=== PATIENT | male | born 1935 | race Caucasian/White ===

== ENCOUNTER 2018-02-10 20:23 | Inpatient (IN) | payer MEDICARE ==
[2018-02-10] MEDS ORDERED: methylPREDNISolone SOD SUCCI 125 MG/2 ML VIAL IV STA (20:38)
[2018-02-10] MEDS ORDERED: IPRATROPIUM-ALBUTEROL 3 ML NEB INHALATION STA (20:38)
[2018-02-10] MEDS ORDERED: MAGNESIUM SULFATE-D5W PMX 1 GM in DEXTROSE/WATER 1 100ML.BAG IVPB STA (20:38)
--- NOTE | 2018-02-10 20:48 | ED ---
SOB HPI - General Chief Complaint: Shortness of Breath Stated Complaint: FERMIN Time Seen by Provider: 02/10/18 20:30 Source: patient, family, RN notes reviewed Mode of arrival: wheelchair Limitations: no limitations - History of Present Illness Initial Comments: This is a 82-year-old male history of COPD who states he had the onset about 1 PM today shortness of breath which is getting progressively worse he's had exertional dyspnea he does have a slight cough this is normal no production. He denies any fevers chills or sweats. No chest pain or other symptoms. MD Complaint: shortness of breath - Related Data Home Medications Medication Instructions Recorded Confirmed Allopurinol 300 mg PO DAILY 02/08/15 02/10/18 Calcium Carbonate/Vitamin D3 600 mg PO HS 02/08/15 02/10/18 [Calcium 600-Vit D3 400 Tablet] Multivitamin [Men's Multi-Vitamin] 1 tab PO DAILY 02/08/15 02/10/18 Aspirin 325 mg PO HS 12/25/15 02/10/18 Tiotropium 18 Mcg/Puff [Spiriva] 1 puff INHALATION RT-DAILY 12/25/15 02/10/18 Albuterol Nebulized [Ventolin 2.5 mg INHALATION RT-Q6H PRN 02/10/18 02/10/18 Nebulized] Budesonide-Formot 160-4.5 Mcg 2 puff INHALATION RT-BID PRN 02/10/18 02/10/18 [Symbicort 160-4.5 Mcg Inhaler] Carvedilol [Coreg] 6.25 mg PO BID 02/10/18 02/10/18 Colchicine 0.6 mg PO DAILY PRN 02/10/18 02/10/18 FLUoxetine HCL [PROzac] 40 mg PO DAILY 02/10/18 02/10/18 Furosemide [Lasix] 40 mg PO BID 02/10/18 02/10/18 Gabapentin [Neurontin] 100 mg PO HS 02/10/18 02/10/18 Gabapentin [Neurontin] 200 mg PO DAILY 02/10/18 02/10/18 Insulin Detemir [Levemir Flextouch] 40 unit SQ HS 02/10/18 02/10/18 Insulin Lispro [humaLOG Kwikpen] 14 unit SQ AC-TID 02/10/18 02/10/18 Ipratropium Nebulized [Atrovent 0.5 mg INHALATION RT-Q6H PRN 02/10/18 02/10/18 Nebulized] Lisinopril [Zestril] 2.5 mg PO DAILY 02/10/18 02/10/18 Potassium Chloride [Klor-Con 20] 20 meq PO DAILY 02/10/18 02/10/18 Pravastatin Sodium [Pravachol] 20 mg PO HS 02/10/18 02/10/18 metFORMIN HCL 1,000 mg PO DAILY 02/10/18 02/10/18 Allergies Allergy/AdvReac Type Severity Reaction Status Date / Time No Known Allergies Allergy Verified 02/10/18 20:43 Review of Systems ROS Statement: Those systems with pertinent positive or pertinent negative responses have been documented in the HPI. ROS Other: All systems not noted in ROS Statement are negative. 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 History of Any Multi-Drug Resistant Organisms: None Reported Past Surgical History: Orthopedic Surgery Additional Past Surgical History / Comment(s): both shoulders- L shoulder rotator cuff repair and R shoulder arthroscopy, L leg fib/tib fx with pinns and screws, plate to R arm, prostate seed implants x 2, R arm B-cell lymphoma removed , circumcision, EGD and colonoscopy Past Anesthesia/Blood Transfusion Reactions: No Reported Reaction Past Psychological History: No Psychological Hx Reported Smoking Status: Former smoker Past Alcohol Use History: None Reported Past Drug Use History: None Reported - Past Family History Father Family Medical History: Hypertension Mother Family Medical History: Diabetes Mellitus General Exam - General Exam Comments Initial Comments: This is a well-developed well-nourished awake alert oriented times 3 male Limitations: no limitations General appearance: alert, anxious, in distress Head exam: Present: atraumatic, normocephalic, normal inspection Eye exam: Present: normal appearance, PERRL, EOMI. Absent: scleral icterus, conjunctival injection, periorbital swelling ENT exam: Present: normal exam, mucous membranes moist Neck exam: Present: normal inspection. Absent: tenderness, meningismus, lymphadenopathy Respiratory exam: Present: wheezes, accessory muscle use, decreased breath sounds. Absent: respiratory distress, rales, rhonchi, stridor Cardiovascular Exam: Present: normal rhythm, tachycardia, normal heart sounds. Absent: systolic murmur, diastolic murmur, rubs, gallop, clicks GI/Abdominal exam: Present: soft, normal bowel sounds, other (Obese abdomen). Absent: distended, tenderness, guarding, rebound, rigid Extremities exam: Present: normal inspection, full ROM, normal capillary refill. Absent: tenderness, pedal edema, joint swelling, calf tenderness Back exam: Present: normal inspection Neurological exam: Present: alert, oriented X3, CN II-XII intact Psychiatric exam: Present: normal affect, normal mood Skin exam: Present: warm, dry, intact, normal color. Absent: rash Course Vital Signs 02/10/18 02/10/18 02/10/18 20:23 20:35 20:50 Temperature 97.1 F L Pulse Rate 115 H 97 Respiratory 18 32 H 28 H Rate Blood Pressure 108/65 112/85 O2 Sat by Pulse 86 L 94 L Oximetry 02/10/18 02/10/18 02/10/18 20:53 21:05 21:23 Temperature Pulse Rate 103 H 105 H 102 H Respiratory 28 H Rate Blood Pressure 111/75 O2 Sat by Pulse 96 Oximetry 02/10/18 02/10/18 02/10/18 21:27 22:15 22:36 Temperature Pulse Rate 94 94 Respiratory 22 22 18 Rate Blood Pressure 124/80 125/81 O2 Sat by Pulse 94 L 93 L Oximetry 02/10/18 23:20 Temperature Pulse Rate 98 Respiratory 22 Rate Blood Pressure 129/83 O2 Sat by Pulse 93 L Oximetry - Reevaluation(s) Reevaluation #1: 02/10/18 23:33 Age negative some relief after the initial updraft. He has no pain and reported none earlier. Reevaluation #2: 02/10/18 23:44 Repeat EKG shows a rate of 88 DE interval 228 QRS duration 120 daily since QTC of 404/48 for prescription AV block sinus arrhythmia left exodeviation low- voltage right bundle-branch block this is compared to an EKG dated 02/5615 which did not show right bundle-branch. Medical Decision Making - Medical Decision Making I did a long session with the patient and his regarding findings patient does not have any pain whatsoever he does have elevated troponin definite changes - Lab Data Result diagrams: 02/10/18 20:50 02/10/18 20:50 Lab Results 02/10/18 02/10/18 02/10/18 Range/Units 20:50 20:50 20:50 WBC 12.0 H (3.8-10.6) k/uL RBC 4.88 (4.30-5.90) m/uL Hgb 15.8 (13.0-17.5) gm/dL Hct 47.8 (39.0-53.0) % MCV 98.0 (80.0-100.0) fL MCH 32.4 (25.0-35.0) pg MCHC 33.1 (31.0-37.0) g/dL RDW 15.6 H (11.5-15.5) % Plt Count 135 L (150-450) k/uL Neutrophils % 82 % Lymphocytes % 9 % Monocytes % 7 % Eosinophils % 1 % Basophils % 0 % Neutrophils # 9.8 H (1.3-7.7) k/uL Lymphocytes # 1.1 (1.0-4.8) k/uL Monocytes # 0.8 (0-1.0) k/uL Eosinophils # 0.1 (0-0.7) k/uL Basophils # 0.0 (0-0.2) k/uL PT (9.0-12.0) sec INR (<1.2) APTT (22.0-30.0) sec Sodium 137 (137-145) mmol/L Potassium 5.1 (3.5-5.1) mmol/L Chloride 101 (98-107) mmol/L Carbon Dioxide 20 L (22-30) mmol/L Anion Gap 16 mmol/L BUN 46 H (9-20) mg/dL Creatinine 1.36 H (0.66-1.25) mg/dL Est GFR (CKD-EPI)AfAm 56 (>60 ml/min/1.73 sqM) Est GFR (CKD-EPI)NonAf 49 (>60 ml/min/1.73 sqM) Glucose 309 H (74-99) mg/dL Calcium 10.1 (8.4-10.2) mg/dL Magnesium 1.5 L (1.6-2.3) mg/dL Total Bilirubin 0.5 (0.2-1.3) mg/dL AST 43 (17-59) U/L ALT 54 (21-72) U/L Alkaline Phosphatase 94 (38-126) U/L Total Creatine Kinase 288 H (55-170) U/L CK-MB (CK-2) 6.0 H* (0.0-2.4) ng/mL CK-MB (CK-2) Rel Index 2.1 Troponin I 0.736 H* (0.000-0.034) ng/mL NT-Pro-B Natriuret Pep pg/mL Total Protein 7.1 (6.3-8.2) g/dL Albumin 4.1 (3.5-5.0) g/dL 02/10/18 02/10/18 Range/Units 20:50 20:50 WBC (3.8-10.6) k/uL RBC (4.30-5.90) m/uL Hgb (13.0-17.5) gm/dL Hct (39.0-53.0) % MCV (80.0-100.0) fL MCH (25.0-35.0) pg MCHC (31.0-37.0) g/dL RDW (11.5-15.5) % Plt Count (150-450) k/uL Neutrophils % % Lymphocytes % % Monocytes % % Eosinophils % % Basophils % % Neutrophils # (1.3-7.7) k/uL Lymphocytes # (1.0-4.8) k/uL Monocytes # (0-1.0) k/uL Eosinophils # (0-0.7) k/uL Basophils # (0-0.2) k/uL PT 10.8 (9.0-12.0) sec INR 1.1 (<1.2) APTT 23.0 (22.0-30.0) sec Sodium (137-145) mmol/L Potassium (3.5-5.1) mmol/L Chloride (98-107) mmol/L Carbon Dioxide (22-30) mmol/L Anion Gap mmol/L BUN (9-20) mg/dL Creatinine (0.66-1.25) mg/dL Est GFR (CKD-EPI)AfAm (>60 ml/min/1.73 sqM) Est GFR (CKD-EPI)NonAf (>60 ml/min/1.73 sqM) Glucose (74-99) mg/dL Calcium (8.4-10.2) mg/dL Magnesium (1.6-2.3) mg/dL Total Bilirubin (0.2-1.3) mg/dL AST (17-59) U/L ALT (21-72) U/L Alkaline Phosphatase (38-126) U/L Total Creatine Kinase (55-170) U/L CK-MB (CK-2) (0.0-2.4) ng/mL CK-MB (CK-2) Rel Index Troponin I (0.000-0.034) ng/mL NT-Pro-B Natriuret Pep 1110 pg/mL Total Protein (6.3-8.2) g/dL Albumin (3.5-5.0) g/dL - EKG Data -: EKG Interpreted by Mi EKG shows normal: sinus rhythm (Sinus rhythm for 3 AV block rate 95. Interval to 16 QRS duration 114 QT since QTC of 372/467 left exodeviation low-voltage incomplete right bundle-branch block and old inferior changes) - Radiology Data Radiology results: report reviewed (I did review the imaging and reports no definite acute infiltrate seen.), image reviewed Critical Care Time Critical Care Time: Yes Critical Care Time: 32 minutes of critical care time which includes initial presentation with history physical labs x-rays reevaluation patient to responsive therapy and discussed with the patient and his regarding findings. Discussed with the main physician admission orders documentation the above discussed with cardiology. Review of old charting that was available Disposition Clinical Impression: Non-ST elevation myocardial infarction (NSTEMI), Acute exacerbation of chronic obstructive airways disease, Adult respiratory distress syndrome Disposition: ADMITTED IP TO THIS HOSP Condition: Stable Referrals: [facility],Clinic [Primary Care Provider] - 1-2 days
[2018-02-10 21:18] LABS: Basophils % (A) 0 %; Eosinophils # (A) 0.1 k/uL (0-0.7); Eosinophils % (A) 1 %; HCT 47.8 % (39.0-53.0); HGB 15.8 gm/dL (13.0-17.5); Lymphocytes # (A) 1.1 k/uL (1.0-4.8); Lymphocytes % (A) 9 %; MCH 32.4 pg (25.0-35.0); MCHC 33.1 g/dL (31.0-37.0); Mean Platelet Volume 9.4; Monocytes # (A) 0.8 k/uL (0-1.0); Monocytes % (A) 7 %; Neutrophils # (A) 9.8 k/uL (1.3-7.7); Neutrophils % (A) 82 %; Platelet Count 135 k/uL (150-450); RBC 4.88 m/uL (4.30-5.90); RDW 15.6 % (11.5-15.5)
[2018-02-10 21:25] LABS: INR 1.1 (<1.2); Prothrombin Time 10.8 sec (9.0-12.0)
[2018-02-10 21:30] LABS: Albumin 4.1 g/dL (3.5-5.0); Calcium 10.1 mg/dL (8.4-10.2); Magnesium 1.5 mg/dL (1.6-2.3); Potassium 5.1 mmol/L (3.5-5.1); Total Bilirubin 0.5 mg/dL (0.2-1.3); Total Protein 7.1 g/dL (6.3-8.2)
--- NOTE | 2018-02-10 21:52 | XR ---
EXAMINATION TYPE: XR chest 2V DATE OF EXAM: 02/10/2018 COMPARISON: 03/20/2015 HISTORY: Difficulty breathing TECHNIQUE: Frontal and lateral views of the chest are obtained. FINDINGS: There is no heart failure nor confluent pneumonic infiltrate. There are old posterior heal ed rib fractures on the left side. There are chest leads. Costophrenic angles are clear. Thoracic aor ta is atheromatous. IMPRESSION: No active cardiopulmonary disease. Atheromatous aorta. No change.
[2018-02-10 21:57] LABS: Troponin I 0.736 ng/mL (0.000-0.034)
[2018-02-10] MEDS ORDERED: HEPARIN SODIUM,PORCINE 5,000 UNIT/ML 1 ML VIAL IV ONE (23:36)
[2018-02-10] MEDS ORDERED: NITROGLYCERIN SL TABS 0.4 MG TAB SUBLINGUAL PRN (23:36)
[2018-02-10] MEDS ORDERED: COLCHICINE 0.6 MG TAB PO PRN (23:38)
[2018-02-10] MEDS ORDERED: SODIUM CHLORIDE 0.9% 1,000 ML IV SCH (23:45)
[2018-02-11] MEDS: HEPARIN SOD,PORK IN 0.45% NACL 25,000 UNIT in 0.45% NACL 1 500ML.BAG IV SCH ×2 (00:21→10:55)
[2018-02-11 01:07] VITALS: BMI 28.2
[2018-02-11] MEDS: NITROGLYCERIN OINT 1 INCH/GM PACKET TOPICAL SCH ×2 (01:43→06:13)
[2018-02-11 04:11] LABS: Creatine Kinase MB 6.4 ng/mL (0.0-2.4); Troponin I 0.603 ng/mL (0.000-0.034)
[2018-02-11 06:21] LABS: Glucose,Whole Blood 334 mg/dL (75-99)
[2018-02-11 06:34] LABS: Basophils % (A) 0 %; Eosinophils % (A) 0 %; HCT 49.9 % (39.0-53.0); HGB 16.6 gm/dL (13.0-17.5); Lymphocytes # (A) 0.5 k/uL (1.0-4.8); Lymphocytes % (A) 6 %; MCH 33.1 pg (25.0-35.0); MCHC 33.4 g/dL (31.0-37.0); MCV 99.1 fL (80.0-100.0); Macrocytosis Slight; Mean Platelet Volume 8.8; Monocytes # (A) 0.2 k/uL (0-1.0); Monocytes % (A) 2 %; Neutrophils # (A) 7.3 k/uL (1.3-7.7); Neutrophils % (A) 92 %; Platelet Count 108 k/uL (150-450); RBC 5.03 m/uL (4.30-5.90); RDW 15.7 % (11.5-15.5)
[2018-02-11] MEDS ORDERED: FUROSEMIDE 40 MG TAB PO SCH (07:00)
[2018-02-11 07:18] LABS: Magnesium 1.9 mg/dL (1.6-2.3); Potassium 4.9 mmol/L (3.5-5.1)
[2018-02-11] MEDS ORDERED: INSULIN ASPART 100 UNIT/ML 1 ML 10 ML VIAL SQ SCH ×2 (07:30)
[2018-02-11] MEDS ORDERED: CARVEDILOL 6.25 MG TAB PO SCH (07:30)
--- NOTE | 2018-02-11 08:27 | P.CRDCN ---
History of Present Illness Consult date: 02/11/18 Requesting physician: Corky Al Reason for Consult (text): Abnormal troponins Consult reason: shortness of breath Chief complaint: Sudden onset of shortness of breath History of present illness: This is a pleasant 82-year-old gentleman with past medical history significant for hypertension, diabetes, hyperlipidemia, history of prior smoking , patient quit several years ago, prior TIA, emphysema, prior CVA, sleep apnea, he follows with Dr. Wheeler as his processing spec. According to the patient, he has been in his usual state of health, yesterday he states that he was sitting up in a chair and developed a sudden onset of shortness of breath. He denies any chest pressure or discomfort. He came to the hospital for further evaluation. EKG on arrival here shows a normal sinus rhythm with a first- degree AV block and a right bundle branch block pattern and nonspecific ST-T wave changes. Chest x-ray does not reveal any acute changes. Blood pressure 142/80 with a heart rate in the 80s. Temperature 96.3. 92% on 8 L high flow. White blood cell count on admission 12.0, 8.0 this morning. Hemoglobin 16.6, platelet count 108. Sodium 140, potassium 4.9, BUN 48, creatinine 1.3. Blood glucose on arrival 309. Magnesium on arrival 1.5, 1.9 this morning. Troponin 0.7, 0.6. BNP level 1110. Patient was initiated on IV heparin on arrival here. At the time of my examination this morning, patient states his breathing is significantly improved from admission here, still complains of feeling quite short of breath. He also states that recently he had a nuclear stress test performed at his cardiology office. The most recent echocardiogram with Doppler study that we have available was performed in 2014 which revealed an ejection fraction of 45-50%. 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 History of Any Multi-Drug Resistant Organisms: None Reported Past Surgical History: Orthopedic Surgery Additional Past Surgical History / Comment(s): both shoulders- L shoulder rotator cuff repair and R shoulder arthroscopy, L leg fib/tib fx with pinns and screws, plate to R arm, prostate seed implants x 2, R arm B-cell lymphoma removed , circumcision, EGD and colonoscopy Past Anesthesia/Blood Transfusion Reactions: No Reported Reaction Past Psychological History: No Psychological Hx Reported Additional Psychological History / Comment(s): Pt lives at home with his and son. Pt ambulates with a walker and also uses a w/c. Pt has hospital bed. Pt states he has a CPAP for his sleep apnea but does not wear it. Pt no longer drives. Pt has home care - [facility] , who comes in and helps pt with ADLs and also does some housework. Smoking Status: Former smoker Past Alcohol Use History: None Reported Past Drug Use History: None Reported - Past Family History Father Family Medical History: Hypertension Mother Family Medical History: Diabetes Mellitus Medications and Allergies Home Medications Medication Instructions Recorded Confirmed Type Allopurinol 300 mg PO DAILY 02/08/15 02/10/18 History Calcium Carbonate/Vitamin D3 600 mg PO HS 02/08/15 02/10/18 History [Calcium 600-Vit D3 400 Tablet] Multivitamin [Men's Multi-Vitamin] 1 tab PO DAILY 02/08/15 02/10/18 History Aspirin 325 mg PO HS 12/25/15 02/10/18 History Tiotropium 18 Mcg/Puff [Spiriva] 1 puff INHALATION RT-DAILY 12/25/15 02/10/18 History Albuterol Nebulized [Ventolin 2.5 mg INHALATION RT-Q6H PRN 02/10/18 02/10/18 History Nebulized] Budesonide-Formot 160-4.5 Mcg 2 puff INHALATION RT-BID PRN 02/10/18 02/10/18 History [Symbicort 160-4.5 Mcg Inhaler] Carvedilol [Coreg] 6.25 mg PO BID 02/10/18 02/10/18 History Colchicine 0.6 mg PO DAILY PRN 02/10/18 02/10/18 History FLUoxetine HCL [PROzac] 40 mg PO DAILY 02/10/18 02/10/18 History Furosemide [Lasix] 40 mg PO BID 02/10/18 02/10/18 History Gabapentin [Neurontin] 100 mg PO HS 02/10/18 02/10/18 History Gabapentin [Neurontin] 200 mg PO DAILY 02/10/18 02/10/18 History Insulin Detemir [Levemir Flextouch] 40 unit SQ HS 02/10/18 02/10/18 History Insulin Lispro [humaLOG Kwikpen] 14 unit SQ AC-TID 02/10/18 02/10/18 History Ipratropium Nebulized [Atrovent 0.5 mg INHALATION RT-Q6H PRN 02/10/18 02/10/18 History Nebulized] Lisinopril [Zestril] 2.5 mg PO DAILY 02/10/18 02/10/18 History Potassium Chloride [Klor-Con 20] 20 meq PO DAILY 02/10/18 02/10/18 History Pravastatin Sodium [Pravachol] 20 mg PO HS 02/10/18 02/10/18 History metFORMIN HCL 1,000 mg PO DAILY 02/10/18 02/10/18 History Allergies Allergy/AdvReac Type Severity Reaction Status Date / Time No Known Allergies Allergy Verified 02/10/18 20:43 Physical Exam Vitals: Vital Signs Temp Pulse Pulse Resp BP BP Pulse Ox 02/11/18 06:29 82 24 142/85 92 L 02/11/18 03:18 24 93 L 02/11/18 03:05 96.3 F L 85 24 139/81 95 02/11/18 01:00 86 26 H 02/11/18 00:55 96.9 F L 86 26 H 124/74 95 02/11/18 00:23 96.7 F L 82 24 140/86 94 L 02/10/18 23:20 98 22 129/83 93 L 02/10/18 22:36 94 18 125/81 93 L 02/10/18 22:15 94 22 124/80 94 L 02/10/18 21:27 22 02/10/18 21:23 102 H 28 H 111/75 96 02/10/18 21:05 105 H 02/10/18 20:53 103 H 02/10/18 20:50 97 28 H 112/85 94 L 02/10/18 20:35 32 H 02/10/18 20:23 97.1 F L 115 H 18 108/65 86 L Intake and Output 02/10/18 02/11/18 02/11/18 22:59 06:59 14:59 Intake Total 187.333 Output Total 150 Balance 37.333 Intake: Intake, IV Titration 187.333 Amount Heparin Sod,Pork in 0.45% 127.333 NaCl 25,000 unit In 0.45 % NaCl 1 500ml.bag @ 7. 885 UNITS/KG/HR 20.02 mls /hr IV .Q24H [facility] Rx#: [id number] Sodium Chloride 0.9% 1, 60 000 ml @ 20 mls/hr IV . Q24H [facility] Rx#:[id number] Oral 0 Output: Urine 150 Other: Voiding Method Urinal Weight 127.006 kg 94.5 kg PHYSICAL EXAMINATION: HEENT: Head is atraumatic, normocephalic. Pupils equal, round. Neck is supple. There is no elevated jugular venous pressure. HEART EXAMINATION: Heart S1, S2 normal. No murmur or gallop heard. CHEST EXAMINATION: Lungs reveal decreased air exchange throughout. ABDOMEN: Soft, obese, nontender. Bowel sounds are heard. No organomegaly noted. EXTREMITIES: 2+ peripheral pulses with trace evidence of peripheral edema and no calf tenderness noted. NEUROLOGIC patient is awake, alert and oriented -3. . Results 02/11/18 06:11 02/11/18 06:11 Cardiac Enzymes 02/10/18 02/10/18 02/11/18 Range/Units 20:50 20:50 03:06 AST 43 (17-59) U/L CK-MB (CK-2) 6.0 H* 6.4 H* (0.0-2.4) ng/mL Troponin I 0.736 H* 0.603 H* (0.000-0.034) ng/mL Coagulation 02/10/18 02/11/18 Range/Units 20:50 06:11 PT 10.8 (9.0-12.0) sec APTT 23.0 37.0 H (22.0-30.0) sec Lipids 02/11/18 Range/Units 06:11 Triglycerides 160 H (<150) mg/dL Cholesterol 162 (<200) mg/dL HDL Cholesterol 41 (40-60) mg/dL CBC 02/10/18 02/11/18 Range/Units 20:50 06:11 WBC 12.0 H 8.0 (3.8-10.6) k/uL RBC 4.88 5.03 (4.30-5.90) m/uL Hgb 15.8 16.6 (13.0-17.5) gm/dL Hct 47.8 49.9 (39.0-53.0) % Plt Count 135 L 108 L (150-450) k/uL Comprehensive Metabolic Panel 02/10/18 02/11/18 Range/Units 20:50 06:11 Sodium 137 140 (137-145) mmol/L Potassium 5.1 4.9 (3.5-5.1) mmol/L Chloride 101 102 (98-107) mmol/L Carbon Dioxide 20 L 20 L (22-30) mmol/L BUN 46 H 48 H (9-20) mg/dL Creatinine 1.36 H 1.30 H (0.66-1.25) mg/dL Glucose 309 H 362 H (74-99) mg/dL Calcium 10.1 10.0 (8.4-10.2) mg/dL AST 43 (17-59) U/L ALT 54 (21-72) U/L Alkaline Phosphatase 94 (38-126) U/L Total Protein 7.1 (6.3-8.2) g/dL Albumin 4.1 (3.5-5.0) g/dL Current Medications Generic Name Dose Route Start Last Admin Trade Name Freq PRN Reason Stop Dose Admin Allopurinol 300 mg 02/11/18 09:00 Zyloprim PO DAILY [facility] Aspirin 325 mg 02/11/18 09:00 Aspirin PO DAILY [facility] Calcium Carbonate 2 each 02/11/18 21:00 Oscal 500+D PO HS [facility] Carvedilol 6.25 mg 02/11/18 07:30 02/11/18 06:30 Coreg PO 6.25 mg BID-W/MEALS [facility] Administration Colchicine 0.6 mg 02/10/18 23:38 Colcrys PO DAILY PRN GOUT Fluoxetine HCl 40 mg 02/11/18 09:00 Prozac PO DAILY [facility] Furosemide 40 mg 02/11/18 07:00 02/11/18 06:30 Lasix PO 40 mg BID@0700,1700 [facility] Administration Gabapentin 200 mg 02/11/18 09:00 Neurontin PO DAILY [facility] Gabapentin 100 mg 02/11/18 21:00 Neurontin PO HS [facility] Heparin Sodium/Sodium Chloride 500 mls @ 20.02 mls/hr 02/10/18 23:45 06:43 25,000 unit/ Sodium Chloride IV 10.87 units/kg/hr .Q24H [facility] 27.61 mls/hr Protocol Titration 7.885 UNITS/KG/HR Sodium Chloride 1,000 mls @ 20 mls/hr 02/10/18 23:45 02/11/18 01:18 Saline 0.9% IV 20 mls/hr .Q24H [facility] Administration Insulin Aspart 14 unit 02/11/18 07:30 02/11/18 06:16 Novolog SQ Not Given AC-TID [facility] Insulin Aspart 0 unit 02/11/18 07:30 02/11/18 06:31 Novolog SQ 9 unit ACHS [facility] Administration Protocol Insulin Detemir 40 unit 02/11/18 21:00 Levemir SQ HS [facility] Lisinopril 2.5 mg 02/11/18 09:00 Zestril PO DAILY [facility] Metformin HCl 1,000 mg 02/11/18 09:00 Glucophage PO DAILY [facility] Multivitamins 1 each 02/11/18 12:00 Theragran PO DAILY@1200 [facility] Nitroglycerin 1 inch 02/11/18 00:00 02/11/18 06:13 Nitro-Bid Oint TOPICAL Not Given Q6HR [facility] Nitroglycerin 0.4 mg 02/10/18 23:36 Nitrostat SUBLINGUAL Q5M PRN Chest Pain Potassium Chloride 20 meq 02/11/18 09:00 K-Dur 20 PO DAILY [facility] Pravastatin Sodium 20 mg 02/11/18 21:00 Pravachol PO HS [facility] Intake and Output 02/10/18 02/11/18 02/11/18 22:59 06:59 14:59 Intake Total 187.333 Output Total 150 Balance 37.333 Intake: Intake, IV Titration 187.333 Amount Heparin Sod,Pork in 0.45% 127.333 NaCl 25,000 unit In 0.45 % NaCl 1 500ml.bag @ 7. 885 UNITS/KG/HR 20.02 mls /hr IV .Q24H [facility] Rx#: [id number] Sodium Chloride 0.9% 1, 60 000 ml @ 20 mls/hr IV . Q24H [facility] Rx#:[id number] Oral 0 Output: Urine 150 Other: Voiding Method Urinal Weight 127.006 kg 94.5 kg 02/11/18 06:11 02/11/18 06:11 EKG Interpretations (text) EKG shows a normal sinus rhythm with a first-degree AV block, right bundle branch block pattern and nonspecific ST-T wave changes. Assessment and Plan Plan: Assessment and plan #1 symptoms of sudden onset of shortness of breath, troponins 0.7, 0.6. Possible non-Q-wave myocardial infarction, rule out pulmonary embolism. EKG shows a normal sinus rhythm with first-degree AV block, right bundle branch block pattern and non-specific ST-T wave changes. Patient is on IV heparin #2 hypertension #3 hyperlipidemia #4 diabetes #5 COPD #6 prior CVA #7 sleep apnea #8 mild renal insufficiency, creatinine 1.3 Plan We will obtain a d-dimer as well as an echocardiogram with Doppler study. Continue IV heparin at this time. We will obtain most recent stress test performed at his cardiology office. Pending the results of the d-dimer, we will proceed with either CT of the chest or VQ scan. Patient may also require cardiac catheterization if he is ruled out for PE. Further recommendations will be based on these findings and the patient's clinical course. DNP note has been reviewed, I agree with a documented findings and plan of care. Patient was seen and examined.
[2018-02-11] MEDS ORDERED: ASPIRIN 325 MG TAB PO SCH ×2 (09:00→21:00)
[2018-02-11] MEDS ORDERED: ALLOPURINOL 300 MG TAB PO SCH (09:00)
[2018-02-11] MEDS ORDERED: GABAPENTIN 100 MG CAP PO SCH ×2 (09:00→21:00)
[2018-02-11] MEDS ORDERED: metFORMIN 500 MG TAB PO SCH (09:00)
[2018-02-11] MEDS ORDERED: POTASSIUM CHLORIDE ER 20 MEQ TAB.ER PO SCH (09:00)
[2018-02-11] MEDS ORDERED: FLUoxetine HCL 20 MG CAP PO SCH (09:00)
[2018-02-11] MEDS ORDERED: LISINOPRIL 2.5 MG TAB PO SCH (09:00)
[2018-02-11] MEDS ORDERED: RX INFO: IV CONTRAST WAS GIVEN 1 EACH MISC MISCELLANE PRN (09:14)
[2018-02-11 09:41] VITALS: PULSE 91; RESP 20
[2018-02-11 09:52] LABS: Creatine Kinase MB 6.5 ng/mL (0.0-2.4); Troponin I 0.485 ng/mL (0.000-0.034)
--- NOTE | 2018-02-11 10:49 | CT ---
EXAMINATION TYPE: CT chest angio for PE DATE OF EXAM: 02/11/2018 COMPARISON: Chest radiograph 02/10/2018 HISTORY: 82 year-old male shortness of breath, Elevated d-dimer TECHNIQUE: Contiguous axial scanning of the chest performed with IV Contrast, patient injected with 7 6 mL of Visipaque 320. Coronal/sagittal MIP reconstructions performed. CT DLP: 605.10 mGycm Automated exposure control for dose reduction was used. FINDINGS: Heart is upper limits of normal in size. Prominent epicardial fat pads. No pericardial effusion. Exte nsive coronary vessel calcifications are present in remarkable for coronary artery disease. Ectatic ascending aorta 3.7 cm. There is conventional arterial vessel branching anatomy. Satisfactory opacification of the pulmonary arterial system. Respiratory motion artifacts. There is a small saddle embolism and severe burden of pulmonary emboli throughout the right lung beginning at t he mid main right pulmonary artery. Embolic material appears occlusive to near occlusive. There may be segmental branch embolus to the left upper lobe. Mild diffuse interstitial prominence with peribronchial cuffing. Some patchy groundglass in the upper lungs and dependently within the remainder of the lungs. No pleural effusion or miranda consolidation. There is flattening of the interventricular septum and mild reflux into the IVC. Small hiatal hernia. Hypodense lesions in the kidneys inadequately characterized on this phase of elvia ging measuring up to 2.5 cm, underlying cortical cysts are suspected. Splenic granulomas. Bones: Post surgical changes at the right humeral head. Endplate spondylosis mid to lower thoracic sp ine. IMPRESSION: 1. EXAM POSITIVE FOR PULMONARY EMBOLI. THERE IS SEVERE BURDEN PARTICULARLY ON THE RIGHT ALONG WITH A SMALL SADDLE EMBOLUS. THE EMBOLIC MATERIAL ON THE RIGHT IS OCCLUSIVE TO NEARLY OCCLUSIVE. 2. FINDINGS SUGGEST EARLY RIGHT HEART STRAIN. 3. MILD BRONCHIAL WALL THICKENING CAN BE SEEN WITH BRONCHITIS OR ASTHMA. HAZY DENSITIES THROUGHOUT TH E LUNGS PROBABLY REPRESENT GENERALIZED AREAS OF ATELECTASIS. FOLLOW-UP INDICATED. Critical findings called to nurse Mendez on 6SEL at 10:45am.
--- NOTE | 2018-02-11 11:09 | P.PN ---
Progress Note - Text Progress Note Date: 02/11/18 This is an addendum to the cardiology consultation dictated. A stat d-dimer was obtained which came back to be 17.05. Subsequent to that we requested a CTA of the chest be performed. CTA of the chest was positive for pulmonary emboli. Severe burden particularly on the right along with saddle embolus. The embolic material on the right is occlusive to nearly occlusive. Findings suggest early right heart strain. Echo remains pending. Patient remained slightly tachycardic, 91% on 8 L high flow, blood pressure remaining stable at 124/82. This data along with the abnormal troponin and abnormal BNP suggests of massive PE. We've recommended to the patient that he be transferred to [facility] for possible thrombectomy. We will get a hold of Dr. Alvarenga be transferred as soon as possible. In the meantime, heparin has been increased to high intensity , we will request a bilateral venous duplex study. DNP note has been reviewed, I agree with a documented findings and plan of care. Patient was seen and examined.
--- NOTE | 2018-02-11 11:14 | P.CRDCN ---
History of Present Illness History of present illness: Patient presenting with sudden onset of shortness of breath. Short of breath at rest. Recent stress test at his primary disk recordist office Cardiac enzymes abnormal the downward trend. D-dimer was sent this morning lasts and it is 17.05. A computed tomography scan was ordered Pulmonary embolism small saddle embolus embolic material almost occlusive in the right lung, RV strain Enlarged right ventricle on 2-D echo, preliminary report In view of this finding I would suggest either thrombectomy or thrombolytic therapy and transfer to tertiary care institution Discussed with nurse practitioner. 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 History of Any Multi-Drug Resistant Organisms: None Reported Past Surgical History: Orthopedic Surgery Additional Past Surgical History / Comment(s): both shoulders- L shoulder rotator cuff repair and R shoulder arthroscopy, L leg fib/tib fx with pinns and screws, plate to R arm, prostate seed implants x 2, R arm B-cell lymphoma removed , circumcision, EGD and colonoscopy Past Anesthesia/Blood Transfusion Reactions: No Reported Reaction Past Psychological History: No Psychological Hx Reported Additional Psychological History / Comment(s): Pt lives at home with his and son. Pt ambulates with a walker and also uses a w/c. Pt has hospital bed. Pt states he has a CPAP for his sleep apnea but does not wear it. Pt no longer drives. Pt has home care - [facility], who comes in and helps pt with ADLs and also does some housework. Smoking Status: Former smoker Past Alcohol Use History: None Reported Past Drug Use History: None Reported - Past Family History Father Family Medical History: Hypertension Mother Family Medical History: Diabetes Mellitus Medications and Allergies Home Medications Medication Instructions Recorded Confirmed Type Allopurinol 300 mg PO DAILY 02/08/15 02/10/18 History Calcium Carbonate/Vitamin D3 600 mg PO HS 02/08/15 02/10/18 History [Calcium 600-Vit D3 400 Tablet] Multivitamin [Men's Multi-Vitamin] 1 tab PO DAILY 02/08/15 02/10/18 History Aspirin 325 mg PO HS 12/25/15 02/10/18 History Tiotropium 18 Mcg/Puff [Spiriva] 1 puff INHALATION RT-DAILY 12/25/15 02/10/18 History Albuterol Nebulized [Ventolin 2.5 mg INHALATION RT-Q6H PRN 02/10/18 02/10/18 History Nebulized] Budesonide-Formot 160-4.5 Mcg 2 puff INHALATION RT-BID PRN 02/10/18 02/10/18 History [Symbicort 160-4.5 Mcg Inhaler] Carvedilol [Coreg] 6.25 mg PO BID 02/10/18 02/10/18 History Colchicine 0.6 mg PO DAILY PRN 02/10/18 02/10/18 History FLUoxetine HCL [PROzac] 40 mg PO DAILY 02/10/18 02/10/18 History Furosemide [Lasix] 40 mg PO BID 02/10/18 02/10/18 History Gabapentin [Neurontin] 100 mg PO HS 02/10/18 02/10/18 History Gabapentin [Neurontin] 200 mg PO DAILY 02/10/18 02/10/18 History Insulin Detemir [Levemir Flextouch] 40 unit SQ HS 02/10/18 02/10/18 History Insulin Lispro [humaLOG Kwikpen] 14 unit SQ AC-TID 02/10/18 02/10/18 History Ipratropium Nebulized [Atrovent 0.5 mg INHALATION RT-Q6H PRN 02/10/18 02/10/18 History Nebulized] Lisinopril [Zestril] 2.5 mg PO DAILY 02/10/18 02/10/18 History Potassium Chloride [Klor-Con 20] 20 meq PO DAILY 02/10/18 02/10/18 History Pravastatin Sodium [Pravachol] 20 mg PO HS 02/10/18 02/10/18 History metFORMIN HCL 1,000 mg PO DAILY 02/10/18 02/10/18 History Allergies Allergy/AdvReac Type Severity Reaction Status Date / Time No Known Allergies Allergy Verified 02/10/18 20:43 Physical Exam Vitals: Vital Signs Temp Pulse Pulse Resp BP BP Pulse Ox 02/11/18 08:00 96.9 F L 91 20 124/82 91 L 02/11/18 06:29 82 24 142/85 92 L 02/11/18 03:18 24 93 L 02/11/18 03:05 96.3 F L 85 24 139/81 95 02/11/18 01:00 86 26 H 02/11/18 00:55 96.9 F L 86 26 H 124/74 95 02/11/18 00:23 96.7 F L 82 24 140/86 94 L 02/10/18 23:20 98 22 129/83 93 L 02/10/18 22:36 94 18 125/81 93 L 02/10/18 22:15 94 22 124/80 94 L 02/10/18 21:27 22 02/10/18 21:23 102 H 28 H 111/75 96 02/10/18 21:05 105 H 02/10/18 20:53 103 H 02/10/18 20:50 97 28 H 112/85 94 L 02/10/18 20:35 32 H 02/10/18 20:23 97.1 F L 115 H 18 108/65 86 L Intake and Output 02/10/18 02/11/18 02/11/18 22:59 06:59 14:59 Intake Total 187.333 115.962 Output Total 150 Balance 37.333 115.962 Intake: Intake, IV Titration 187.333 115.962 Amount Heparin Sod,Pork in 0.45% 127.333 115.962 NaCl 25,000 unit In 0.45 % NaCl 1 500ml.bag @ 7. 885 UNITS/KG/HR 20.02 mls /hr IV .Q24H [facility] Rx#: [id number] Sodium Chloride 0.9% 1, 60 000 ml @ 20 mls/hr IV . Q24H [facility] Rx#:[id number] Oral 0 Output: Urine 150 Other: Voiding Method Urinal Urinal Weight 127.006 kg 94.5 kg Results 02/11/18 06:11 02/11/18 06:11 Cardiac Enzymes 02/10/18 02/10/18 02/11/18 Range/Units 20:50 20:50 03:06 AST 43 (17-59) U/L CK-MB (CK-2) 6.0 H* 6.4 H* (0.0-2.4) ng/mL Troponin I 0.736 H* 0.603 H* (0.000-0.034) ng/mL 02/11/18 Range/Units 08:30 AST (17-59) U/L CK-MB (CK-2) 6.5 H* (0.0-2.4) ng/mL Troponin I 0.485 H* (0.000-0.034) ng/mL Coagulation 02/10/18 02/11/18 Range/Units 20:50 06:11 PT 10.8 (9.0-12.0) sec APTT 23.0 37.0 H (22.0-30.0) sec Lipids 02/11/18 Range/Units 06:11 Triglycerides 160 H (<150) mg/dL Cholesterol 162 (<200) mg/dL HDL Cholesterol 41 (40-60) mg/dL CBC 02/10/18 02/11/18 Range/Units 20:50 06:11 WBC 12.0 H 8.0 (3.8-10.6) k/uL RBC 4.88 5.03 (4.30-5.90) m/uL Hgb 15.8 16.6 (13.0-17.5) gm/dL Hct 47.8 49.9 (39.0-53.0) % Plt Count 135 L 108 L (150-450) k/uL Comprehensive Metabolic Panel 02/10/18 02/11/18 Range/Units 20:50 06:11 Sodium 137 140 (137-145) mmol/L Potassium 5.1 4.9 (3.5-5.1) mmol/L Chloride 101 102 (98-107) mmol/L Carbon Dioxide 20 L 20 L (22-30) mmol/L BUN 46 H 48 H (9-20) mg/dL Creatinine 1.36 H 1.30 H (0.66-1.25) mg/dL Glucose 309 H 362 H (74-99) mg/dL Calcium 10.1 10.0 (8.4-10.2) mg/dL AST 43 (17-59) U/L ALT 54 (21-72) U/L Alkaline Phosphatase 94 (38-126) U/L Total Protein 7.1 (6.3-8.2) g/dL Albumin 4.1 (3.5-5.0) g/dL Current Medications Generic Name Dose Route Start Last Admin Trade Name Freq PRN Reason Stop Dose Admin Allopurinol 300 mg 02/11/18 09:00 Zyloprim PO DAILY [facility] Aspirin 325 mg 02/11/18 09:00 Aspirin PO DAILY [facility] Calcium Carbonate 2 each 02/11/18 21:00 Oscal 500+D PO HS [facility] Carvedilol 6.25 mg 02/11/18 07:30 02/11/18 06:30 Coreg PO 6.25 mg BID-W/MEALS [facility] Administration Colchicine 0.6 mg 02/10/18 23:38 Colcrys PO DAILY PRN GOUT Fluoxetine HCl 40 mg 02/11/18 09:00 Prozac PO DAILY [facility] Furosemide 40 mg 02/11/18 07:00 02/11/18 06:30 Lasix PO 40 mg BID@0700,1700 [facility] Administration Gabapentin 200 mg 02/11/18 09:00 Neurontin PO DAILY [facility] Gabapentin 100 mg 02/11/18 21:00 Neurontin PO HS [facility] Heparin Sodium/Sodium Chloride 500 mls @ 20.02 mls/hr 02/10/18 23:45 10:55 25,000 unit/ Sodium Chloride IV 18 units/kg/hr .Q24H [facility] 45.72 mls/hr Protocol Administration 7.885 UNITS/KG/HR Sodium Chloride 1,000 mls @ 20 mls/hr 02/10/18 23:45 02/11/18 01:18 Saline 0.9% IV 20 mls/hr .Q24H [facility] Administration Insulin Aspart 14 unit 02/11/18 07:30 02/11/18 06:16 Novolog SQ Not Given AC-TID [facility] Insulin Aspart 0 unit 02/11/18 07:30 02/11/18 06:31 Novolog SQ 9 unit ACHS [facility] Administration Protocol Insulin Detemir 40 unit 02/11/18 21:00 Levemir SQ HS [facility] Lisinopril 2.5 mg 02/11/18 09:00 Zestril PO DAILY [facility] Metformin HCl 1,000 mg 02/11/18 09:00 Glucophage PO DAILY [facility] Miscellaneous Information 1 each 02/11/18 09:14 Rx Info: Iv Contrast Was Given MISCELLANE 02/13/18 09:15 DAILY PRN Per Protocol Multivitamins 1 each 02/11/18 12:00 Theragran PO DAILY@1200 [facility] Nitroglycerin 1 inch 02/11/18 00:00 02/11/18 06:13 Nitro-Bid Oint TOPICAL Not Given Q6HR [facility] Nitroglycerin 0.4 mg 02/10/18 23:36 Nitrostat SUBLINGUAL Q5M PRN Chest Pain Potassium Chloride 20 meq 02/11/18 09:00 K-Dur 20 PO DAILY [facility] Pravastatin Sodium 20 mg 02/11/18 21:00 Pravachol PO HS [facility] Intake and Output 02/10/18 02/11/18 02/11/18 22:59 06:59 14:59 Intake Total 187.333 115.962 Output Total 150 Balance 37.333 115.962 Intake: Intake, IV Titration 187.333 115.962 Amount Heparin Sod,Pork in 0.45% 127.333 115.962 NaCl 25,000 unit In 0.45 % NaCl 1 500ml.bag @ 7. 885 UNITS/KG/HR 20.02 mls /hr IV .Q24H [facility] Rx#: [id number] Sodium Chloride 0.9% 1, 60 000 ml @ 20 mls/hr IV . Q24H [facility] Rx#:[id number] Oral 0 Output: Urine 150 Other: Voiding Method Urinal Urinal Weight 127.006 kg 94.5 kg 02/11/18 06:11 02/11/18 06:11
[2018-02-11 11:42] LABS: Glucose,Whole Blood 317 mg/dL (75-99)
[2018-02-11] MEDS ORDERED: MULTIVITAMINS, THERA 1 EACH TAB PO SCH (12:00)
--- NOTE | 2018-02-11 12:28 | ECHOF ---
Referral Reason:sob MEASUREMENTS -------- HEIGHT: 180.3 cm WEIGHT: 94.3 kg BP: 142/85 RVIDd: 5.1 cm (< 3.3) IVSd: 1.1 cm (0.6 - 1.1) LVIDd: 2.8 cm (3.9 - 5.3) LVPWd: 1.3 cm (0.6 - 1.1) IVSs: 1.8 cm LVIDs: 2.0 cm LVPWs: 2.2 cm Ao Diam: 3.7 cm (2.0 - 3.7) AV Cusp: 1.5 cm (1.5 - 2.6) LA Diam: 2.0 cm (2.7 - 3.8) MV EXCURSION: 10.325 mm (> 18.000) MV EF SLOPE: 67 mm/s (70 - 150) EPSS: 1.6 cm MV E Stefano: 1.17 m/s MV DecT: 132 ms MV A Stefano: 0.24 m/s MV E/A Ratio: 4.97 RAP: 5.00 mmHg RVSP: 8.03 mmHg FINDINGS -------- Sinus rhythm. This was a technically difficult study with suboptimal views. The left ventricular size is normal. There is mild concentric left ventricular hypertrophy. Overa ll left ventricular systolic function is normal with, an EF between 55 - 60 %. There is paradoxical /dysynergic septal motion consistent with right ventricular volume overload and/or elevated right tano tricular end-diastolic pressure. The right ventricle is severely enlarged. The left atrium is normal in size. RA appears enlarged. 1.5mg of Definity was utilized for enhancement of images The aortic valve is trileaflet, and appears structurally normal. No aortic stenosis or regurgitation. The mitral valve leaflets are mildly thickened. Mild mitral regurgitation is present. Mild tricuspid regurgitation present. The right ventricular systolic pressure, as measured by Doppl er, is 8.03mmHg.This may be underestimated. Pulmonary artery pressures were low. It could be second brenda to low flow or underestimation. Trace/mild (physiologic) pulmonic regurgitation. The aortic root size is normal. The pericardium is normal. CONCLUSIONS -------- 1. Sinus rhythm. 2. This was a technically difficult study with suboptimal views. 3. The left ventricular size is normal. 4. There is mild concentric left ventricular hypertrophy. 5. Overall left ventricular systolic function is normal with, an EF between 55 - 60 %. 6. There is paradoxical/dysynergic septal motion consistent with right ventricular volume overload an d/or elevated right ventricular end-diastolic pressure. 7. The right ventricle is severely enlarged. 8. The left atrium is normal in size. 9. RA appears enlarged. 10. Lumason used 11. The aortic valve is trileaflet, and appears structurally normal. No aortic stenosis or regurgitat ion. 12. The mitral valve leaflets are mildly thickened. 13. Mild mitral regurgitation is present. 14. Mild tricuspid regurgitation present. 15. The right ventricular systolic pressure, as measured by Doppler, is 8.03mmHg. 16. Pulmonary artery pressures were low. It could be secondary to low flow or underestimation. 17. The aortic root size is normal. 18. The pericardium is normal. LABOR RELATIONS WORKER: Shannan Mullins RDCS
[2018-02-11 13:17] VITALS: BP 121/79; TEMP 97
--- NOTE | 2018-02-11 13:30 | US ---
EXAMINATION TYPE: US venous doppler duplex LE DATE OF EXAM: 02/11/2018 11:03 AM COMPARISON: NONE CLINICAL HISTORY: r/o dvt. PE. On heparin. Hx of DVT in right leg. SIDE PERFORMED: Bilateral TECHNIQUE: The lower extremity deep venous system is examined utilizing real time linear array sonog berto with graded compression, doppler sonography and color-flow sonography. VESSELS IMAGED: External Iliac Vein (EIV) Common Femoral Vein Deep Femoral Vein Greater Saphenous Vein * Femoral Vein Popliteal Vein Small Saphenous Vein * Proximal Calf Veins (* superficial vessels) Right Leg: Negative for DVT Left Leg: Positive for DVT. Partial compression and thready flow seen CFV to Popliteal vein. IMPRESSION: 1. Partial thrombus within the common femoral vein extending into the popliteal vein compatible with deep venous thrombosis left side. 2. Deep venous thrombosis is not identified within the right leg at this time.
--- NOTE | 2018-02-11 19:49 | P.HPIM ---
History of Present Illness H&P Date: 02/11/18 Chief Complaint: Shortness of breath Patient is an 82-year-old male with a known history of ypertension, diabetes, hyperlipidemia, history of prior smoking, patient quit several years ago, prior TIA, emphysema, prior CVA, sleep apnea came to ER with complaints of sudden onset of shortness of breath. Apparently patient was sitting up in the chair and suddenly developed shortness of breath. And also chest discomfort and pressure-like sensation mainly in left upper chest. Patient denied any nausea vomiting or abdominal pain. Denied any recent illnesses or sick contacts. No recent travel. No fever no chills. No cough or sputum production. EKG on admission showed normal sinus rhythm with first-degree AV block and right bundle branch pattern. Chest x-ray showed no acute process. BNP 1110 Patient was started on heparin IV and cardiology was consulted. Patient was complaining of shortness of breath this morning and stat d-dimer was obtained which was found to be 17.05. CT angiogram the chest positive for pulmonary embolus. Severe burden particularly on the right along with saddle embolus. The embolic material on the right is occlusive to nearly occlusive. Findings suggest early right heart strain. Patient was continued on heparin IV and transferred to tertiary care facility was initiated for thrombectomy or thrombolytic therapy Review of Systems Constitutional: Patient denies any fever or chills . No generalized weakness or weight loss. Abdomen: Patient denied nausea vomiting and diarrhea and abdominal pain. Cardiovascular: Chest tightness and shortness of breath. No leg swelling. Respiratory: patient denied any cough is from production. No shortness of breath Neurologic: Patient denied any numbness or tingling headache. Musculoskeletal: Patient denies any complaints of joint swelling or deformity. Skin: Negative Psychiatric: Negative Endocrine: No heat or cold intolerance. No recent weight gain. Genitourinary: No dysuria or hematuria. 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 History of Any Multi-Drug Resistant Organisms: None Reported Past Surgical History: Orthopedic Surgery Additional Past Surgical History / Comment(s): both shoulders- L shoulder rotator cuff repair and R shoulder arthroscopy, L leg fib/tib fx with pinns and screws, plate to R arm, prostate seed implants x 2, R arm B-cell lymphoma removed , circumcision, EGD and colonoscopy Past Anesthesia/Blood Transfusion Reactions: No Reported Reaction Past Psychological History: No Psychological Hx Reported Additional Psychological History / Comment(s): Pt lives at home with his and son. Pt ambulates with a walker and also uses a w/c. Pt has hospital bed. Pt states he has a CPAP for his sleep apnea but does not wear it. Pt no longer drives. Pt has home care - [place] [id number], who comes in and helps pt with ADLs and also does some housework. Smoking Status: Former smoker Past Alcohol Use History: None Reported Past Drug Use History: None Reported - Past Family History Father Family Medical History: Hypertension Mother Family Medical History: Diabetes Mellitus Medications and Allergies Home Medications Medication Instructions Recorded Confirmed Type Allopurinol 300 mg PO DAILY 02/08/15 02/10/18 History Calcium Carbonate/Vitamin D3 600 mg PO HS 02/08/15 02/10/18 History [Calcium 600-Vit D3 400 Tablet] Multivitamin [Men's Multi-Vitamin] 1 tab PO DAILY 02/08/15 02/10/18 History Aspirin 325 mg PO HS 12/25/15 02/10/18 History Tiotropium 18 Mcg/Puff [Spiriva] 1 puff INHALATION RT-DAILY 12/25/15 02/10/18 History Albuterol Nebulized [Ventolin 2.5 mg INHALATION RT-Q6H PRN 02/10/18 02/10/18 History Nebulized] Budesonide-Formot 160-4.5 Mcg 2 puff INHALATION RT-BID PRN 02/10/18 02/10/18 History [Symbicort 160-4.5 Mcg Inhaler] Carvedilol [Coreg] 6.25 mg PO BID 02/10/18 02/10/18 History Colchicine 0.6 mg PO DAILY PRN 02/10/18 02/10/18 History FLUoxetine HCL [PROzac] 40 mg PO DAILY 02/10/18 02/10/18 History Furosemide [Lasix] 40 mg PO BID 02/10/18 02/10/18 History Gabapentin [Neurontin] 100 mg PO HS 02/10/18 02/10/18 History Gabapentin [Neurontin] 200 mg PO DAILY 02/10/18 02/10/18 History Insulin Detemir [Levemir Flextouch] 40 unit SQ HS 02/10/18 02/10/18 History Insulin Lispro [humaLOG Kwikpen] 14 unit SQ AC-TID 02/10/18 02/10/18 History Ipratropium Nebulized [Atrovent 0.5 mg INHALATION RT-Q6H PRN 02/10/18 02/10/18 History Nebulized] Lisinopril [Zestril] 2.5 mg PO DAILY 02/10/18 02/10/18 History Potassium Chloride [Klor-Con 20] 20 meq PO DAILY 02/10/18 02/10/18 History Pravastatin Sodium [Pravachol] 20 mg PO HS 02/10/18 02/10/18 History metFORMIN HCL 1,000 mg PO DAILY 02/10/18 02/10/18 History Allergies Allergy/AdvReac Type Severity Reaction Status Date / Time No Known Allergies Allergy Verified 02/10/18 20:43 Physical Exam Vitals: Vital Signs Temp Pulse Pulse Resp BP BP Pulse Ox 02/11/18 08:00 96.9 F L 91 20 124/82 91 L 02/11/18 06:29 82 24 142/85 92 L 02/11/18 03:18 24 93 L 02/11/18 03:05 96.3 F L 85 24 139/81 95 02/11/18 01:00 86 26 H 02/11/18 00:55 96.9 F L 86 26 H 124/74 95 02/11/18 00:23 96.7 F L 82 24 140/86 94 L 02/10/18 23:20 98 22 129/83 93 L 02/10/18 22:36 94 18 125/81 93 L 02/10/18 22:15 94 22 124/80 94 L 03/14/18 21:27 22 02/10/18 21:23 102 H 28 H 111/75 96 02/10/18 21:05 105 H 02/10/18 20:53 103 H 02/10/18 20:50 97 28 H 112/85 94 L 02/10/18 20:35 32 H 02/10/18 20:23 97.1 F L 115 H 18 108/65 86 L Intake and Output 02/10/18 02/11/18 02/11/18 22:59 06:59 14:59 Intake Total 187.333 115.962 Output Total 150 Balance 37.333 115.962 Intake: Intake, IV Titration 187.333 115.962 Amount Heparin Sod,Pork in 0.45% 127.333 115.962 NaCl 25,000 unit In 0.45 % NaCl 1 500ml.bag @ 7. 885 UNITS/KG/HR 20.02 mls /hr IV .Q24H [facility] Rx#: [id number] Sodium Chloride 0.9% 1, 60 000 ml @ 20 mls/hr IV . Q24H [facility]OE[facility] Rx#:[id number] Oral 0 Output: Urine 150 Other: Voiding Method Urinal Urinal Weight 127.006 kg 94.5 kg PHYSICAL EXAMINATION: Patient is lying in the bed comfortably, no acute distress, awake alert and oriented.. HEENT: Normocephalic. Neck is supple. Pupils reactive. Nostrils clear. Oral cavity is moist. Ears reveal no drainage. Neck reveals no JVD, carotid bruits, or thyromegaly. CHEST EXAMINATION: Trachea is central. Symmetrical expansion. Lung cordero clear to auscultation and percussion. CARDIAC: Normal S1, S2 with no gallops. No murmurs ABDOMEN: Soft. Bowel sounds normal. No organomegaly. No abdominal bruits. Extremities: reveal no edema. No clubbing or cyanosis Neurologically awake, alert, oriented x3 with well-coordinated movements. No focal deficits noted Skin: No rash or skin lesions. Psychiatric: Coperative. Nonsuicidal Musculoskeletal: No joint swelling or deformity. Normal range of motion. Results CBC & Chem 7: 02/11/18 06:11 02/11/18 06:11 Labs: Abnormal Lab Results - Last 24 Hours (Table) 0302/10/18 02/10/18 Range/Units 20:50 20:50 20:50 WBC 12.0 H (3.8-10.6) k/uL RDW 15.6 H (11.5-15.5) % Plt Count 135 L (150-450) k/uL Neutrophils # 9.8 H (1.3-7.7) k/uL Lymphocytes # (1.0-4.8) k/uL APTT (22.0-30.0) sec D-Dimer (<0.60) mg/L FEU Carbon Dioxide 20 L (22-30) mmol/L BUN 46 H (9-20) mg/dL Creatinine 1.36 H (0.66-1.25) mg/dL Glucose 309 H (74-99) mg/dL POC Glucose (mg/dL) (75-99) mg/dL Magnesium 1.5 L (1.6-2.3) mg/dL Total Creatine Kinase 288 H (55-170) U/L CK-MB (CK-2) 6.0 H* (0.0-2.4) ng/mL Troponin I 0.736 H* (0.000-0.034) ng/mL Triglycerides (<150) mg/dL 02/11/18 02/11/18 02/11/18 Range/Units 03:06 06:11 06:11 WBC (3.8-10.6) k/uL RDW 15.7 H (11.5-15.5) % Plt Count 108 L (150-450) k/uL Neutrophils # (1.3-7.7) k/uL Lymphocytes # 0.5 L (1.0-4.8) k/uL APTT (22.0-30.0) sec D-Dimer (<0.60) mg/L FEU Carbon Dioxide 20 L (22-30) mmol/L BUN 48 H (9-20) mg/dL Creatinine 1.30 H (0.66-1.25) mg/dL Glucose 362 H (74-99) mg/dL POC Glucose (mg/dL) (75-99) mg/dL Magnesium (1.6-2.3) mg/dL Total Creatine Kinase 232 H (55-170) U/L CK-MB (CK-2) 6.4 H* (0.0-2.4) ng/mL Troponin I 0.603 H* (0.000-0.034) ng/mL Triglycerides 160 H (<150) mg/dL 02/11/18 02/11/18 02/11/18 Range/Units 06:11 06:11 06:15 WBC (3.8-10.6) k/uL RDW (11.5-15.5) % Plt Count (150-450) k/uL Neutrophils # (1.3-7.7) k/uL Lymphocytes # (1.0-4.8) k/uL APTT 37.0 H (22.0-30.0) sec D-Dimer 17.05 H (<0.60) mg/L FEU Carbon Dioxide (22-30) mmol/L BUN (9-20) mg/dL Creatinine (0.66-1.25) mg/dL Glucose (74-99) mg/dL POC Glucose (mg/dL) 334 H (75-99) mg/dL Magnesium (1.6-2.3) mg/dL Total Creatine Kinase (55-170) U/L CK-MB (CK-2) (0.0-2.4) ng/mL Troponin I (0.000-0.034) ng/mL Triglycerides (<150) mg/dL 02/11/18 02/11/18 Range/Units 08:30 11:37 WBC (3.8-10.6) k/uL RDW (11.5-15.5) % Plt Count (150-450) k/uL Neutrophils # (1.3-7.7) k/uL Lymphocytes # (1.0-4.8) k/uL APTT (22.0-30.0) sec D-Dimer (<0.60) mg/L FEU Carbon Dioxide (22-30) mmol/L BUN (9-20) mg/dL Creatinine (0.66-1.25) mg/dL Glucose (74-99) mg/dL POC Glucose (mg/dL) 317 H (75-99) mg/dL Magnesium (1.6-2.3) mg/dL Total Creatine Kinase 186 H (55-170) U/L CK-MB (CK-2) 6.5 H* (0.0-2.4) ng/mL Troponin I 0.485 H* (0.000-0.034) ng/mL Triglycerides (<150) mg/dL Thrombosis Risk Factor Assmnt - Choose All That Apply Any of the Below Risk Factors Present?: Yes Each Factor Represents 1 point: Abnormal pulmonary function (COPD), Obesity ( BMI >25) Other Risk Factors: Yes Each Risk Factor Represents 3 Points: Age 75 years or older, History of DVT/PE Other congenital or acquired thrombophilia - If yes, enter type in comment: No Thrombosis Risk Factor Assessment Total Risk Factor Score: 8 Thrombosis Risk Factor Assessment Level: High Risk Assessment and Plan Assessment: Acute massive pulmonary embolism/saddle embolus Elevated troponin level secondary to above Hypertension Hyperlipidemia Diabetes type 2 COPD Prior CVA Obstructive sleep apnea on CPAP at home Acute kidney injury with creatinine 1.3 Plan: Patient will be continued on high-dose heparin drip. And continue the current management. Patient is a care facility was contacted for transfer due to massive pulmonary embolism and right heart strain. Cardiology is following. Prognosis is guarded. Further recommendations based on the clinical course. Time with Patient: Greater than 30
--- NOTE | 2018-02-11 19:51 | P.DS ---
Providers Date of admission: 02/10/18 23:36 Expected date of discharge: 02/11/18 Attending physician: Corky Al Consults: 02/10/18 23:36 Consult Physician Urgent Consulting Provider: Fletcher Mcnair Consult Reason/Comments: Non-ST elevation myocardial infarction Do you want consulting provider notified?: Already Contacted Primary care physician: [facility] Hospital Course: Discharge diagnosis Acute massive pulmonary embolism/saddle embolus Elevated troponin level secondary to above Hypertension Hyperlipidemia Diabetes type 2 COPD Prior CVA Obstructive sleep apnea on CPAP at home Acute kidney injury with creatinine 1.3 Hospital course Patient is an 82-year-old male with a known history of ypertension, diabetes, hyperlipidemia, history of prior smoking, patient quit several years ago, prior TIA, emphysema, prior CVA, sleep apnea came to ER with complaints of sudden onset of shortness of breath. Apparently patient was sitting up in the chair and suddenly developed shortness of breath. And also chest discomfort and pressure-like sensation mainly in left upper chest. Patient denied any nausea vomiting or abdominal pain. Denied any recent illnesses or sick contacts. No recent travel. No fever no chills. No cough or sputum production. EKG on admission showed normal sinus rhythm with first-degree AV block and right bundle branch pattern. Chest x-ray showed no acute process. BNP 1110 Patient was started on heparin IV and cardiology was consulted. Patient was complaining of shortness of breath this morning and stat d-dimer was obtained which was found to be 17.05. CT angiogram the chest positive for pulmonary embolus. Severe burden particularly on the right along with saddle embolus. The embolic material on the right is occlusive to nearly occlusive. Findings suggest early right heart strain. Patient was continued on heparin IV and transferred to tertiary care facility was initiated for thrombectomy or thrombolytic therapy. Patient was continued on high-dose heparin drip. Appreciate cardiology recommendations. Prognosis is guarded. Patient was transferred to tertiary care facility for possible thrombectomy thrombolytic therapy. Lower admitted duplex is positive for DVT as well. Discharge physical examination was done and vitals reviewed. Patient was transferred to [facility] for further care. Total time taken greater than 35 minutes including 18 minutes for counseling and coordination of care. Patient Condition at Discharge: Fair Plan - Discharge Summary Discharge Rx Participant: No New Discharge Prescriptions: No Action Multivitamin [Men's Multi-Vitamin] 1 tab PO DAILY Calcium Carbonate/Vitamin D3 [Calcium 600-Vit D3 400 Tablet] 600 mg PO HS Allopurinol 300 mg PO DAILY Tiotropium 18 Mcg/Puff [Spiriva] 1 puff INHALATION RT-DAILY Aspirin 325 mg PO HS Ipratropium Nebulized [Atrovent Nebulized] 0.5 mg INHALATION RT-Q6H PRN PRN Reason: Shortness Of Breath Albuterol Nebulized [Ventolin Nebulized] 2.5 mg INHALATION RT-Q6H PRN PRN Reason: Shortness Of Breath Insulin Detemir [Levemir Flextouch] 40 unit SQ HS Budesonide-Formot 160-4.5 Mcg [Symbicort 160-4.5 Mcg Inhaler] 2 puff INHALATION RT-BID PRN PRN Reason: Shortness Of Breath Insulin Lispro [humaLOG Kwikpen] 14 unit SQ AC-TID Colchicine 0.6 mg PO DAILY PRN PRN Reason: GOUT Pravastatin Sodium [Pravachol] 20 mg PO HS Furosemide [Lasix] 40 mg PO BID Carvedilol [Coreg] 6.25 mg PO BID metFORMIN HCL 1,000 mg PO DAILY FLUoxetine HCL [PROzac] 40 mg PO DAILY Potassium Chloride [Klor-Con 20] 20 meq PO DAILY Lisinopril [Zestril] 2.5 mg PO DAILY Gabapentin [Neurontin] 100 mg PO HS Gabapentin [Neurontin] 200 mg PO DAILY Discharge Medication List Allopurinol 300 mg PO DAILY 02/08/15 [History] Calcium Carbonate/Vitamin D3 [Calcium 600-Vit D3 400 Tablet] 600 mg PO HS [History] Multivitamin [Men's Multi-Vitamin] 1 tab PO DAILY 02/08/15 [History] Aspirin 325 mg PO HS 12/25/15 [History] Tiotropium 18 Mcg/Puff [Spiriva] 1 puff INHALATION RT-DAILY 12/25/15 [History] Albuterol Nebulized [Ventolin Nebulized] 2.5 mg INHALATION RT-Q6H PRN 02/10/18 [ History] Budesonide-Formot 160-4.5 Mcg [Symbicort 160-4.5 Mcg Inhaler] 2 puff INHALATION RT-BID PRN 02/10/18 [History] Carvedilol [Coreg] 6.25 mg PO BID 02/10/18 [History] Colchicine 0.6 mg PO DAILY PRN 02/10/18 [History] FLUoxetine HCL [PROzac] 40 mg PO DAILY 02/10/18 [History] Furosemide [Lasix] 40 mg PO BID 02/10/18 [History] Gabapentin [Neurontin] 100 mg PO HS 02/10/18 [History] Gabapentin [Neurontin] 200 mg PO DAILY 02/10/18 [History] Insulin Detemir [Levemir Flextouch] 40 unit SQ HS 02/10/18 [History] Insulin Lispro [humaLOG Kwikpen] 14 unit SQ AC-TID 02/10/18 [History] Ipratropium Nebulized [Atrovent Nebulized] 0.5 mg INHALATION RT-Q6H PRN [History] Lisinopril [Zestril] 2.5 mg PO DAILY 02/10/18 [History] Potassium Chloride [Klor-Con 20] 20 meq PO DAILY 02/10/18 [History] Pravastatin Sodium [Pravachol] 20 mg PO HS 02/10/18 [History] metFORMIN HCL 1,000 mg PO DAILY 02/10/18 [History] Follow up Appointment(s)/Referral(s): [facility],Clinic [Primary Care Provider] - 1-2 days Discharge Disposition: OTHER INSTITUTION NOT DEFINED
[2018-02-11] MEDS ORDERED: PRAVASTATIN SODIUM 20 MG TAB PO SCH (21:00)
[2018-02-11] MEDS ORDERED: INSULIN DETEMIR 100 UNIT/ML 10 ML VIAL SQ SCH (21:00)
[2018-02-11] MEDS ORDERED: CALCIUM CARB-VIT D 500MG-200UN 1 EACH TAB PO SCH (21:00)
== END 2018-02-11 13:21 | disposition short-term general hospital (02) | DRG 176 ==
LOC: EC 20:23 → 6SEL 23:36
PROVIDERS: ADMIT Internal Medicine; ATTEND Internal Medicine
DX: I26.92 Saddle embolus of pulmonary artery without acute cor pulmonale (principal); N17.9 Acute kidney failure, unspecified; E11.9 Type 2 diabetes mellitus without complications; F03.90 Unspecified dementia, unspecified severity, without behavioral disturbance, psychotic disturbance, mood disturbance, and anxiety; J44.9 Chronic obstructive pulmonary disease, unspecified; I11.9 Hypertensive heart disease without heart failure; I45.10 Unspecified right bundle-branch block; E78.5 Hyperlipidemia, unspecified; G47.33 Obstructive sleep apnea (adult) (pediatric); I44.0 Atrioventricular block, first degree; K21.9 Gastro-esophageal reflux disease without esophagitis; M19.91 Primary osteoarthritis, unspecified site; M10.9 Gout, unspecified; K64.9 Unspecified hemorrhoids; G89.29 Other chronic pain; M54.9 Dorsalgia, unspecified; K57.90 Diverticulosis of intestine, part unspecified, without perforation or abscess without bleeding; Z79.82 Long term (current) use of aspirin; Z79.4 Long term (current) use of insulin; Z79.51 Long term (current) use of inhaled steroids; Z79.899 Other long term (current) drug therapy; Z85.72 Personal history of non-Hodgkin lymphomas; Z92.3 Personal history of irradiation; Z92.21 Personal history of antineoplastic chemotherapy; Z87.891 Personal history of nicotine dependence; Z85.828 Personal history of other malignant neoplasm of skin; Z85.46 Personal history of malignant neoplasm of prostate; Z87.11 Personal history of peptic ulcer disease; Z86.73 Personal history of transient ischemic attack (TIA), and cerebral infarction without residual deficits; Z87.01 Personal history of pneumonia (recurrent)
CPT/HCPCS: 36415; 71046; 71275; 80048; 80053; 80061; 82550; 82553; 83735; 83880; 84484; 85025; 85379; 85610; 85730; 93005; 93306; 93970; 94640; 96365; 96375; 99291

== ENCOUNTER 2018-06-23 11:41 | Inpatient (IN) | payer MEDICARE ==
--- NOTE | 2018-06-23 11:57 | ED ---
General Adult HPI - General Chief complaint: Neuro Symptoms/Deficit Stated complaint: Poss Stroke Time Seen by Provider: 06/23/18 11:45 Source: patient, RN notes reviewed Mode of arrival: wheelchair Limitations: no limitations - History of Present Illness Initial comments: This is an 82-year-old male presents emergency Department with a past history significant for prostate cancer lymphoma and high blood pressure and diabetes. Patient comes into the emergency department today because he has altered mentally and the decided to bring to the hospital. According to the she believes this started about 9:00 but she was not at the house until 9:30. Patient denies any headache patient denies chest pain. Patient states he has bilateral leg weakness which the states his been ongoing and not new. Patient states she has no abdominal pain denies any nausea or vomiting. Patient states he does realize he is confused and he thinks that is because he is having a stroke currently. Patient denies any palpitations. Patient denies any recent fever chills or cough. Patient denies lightheadedness or dizziness. Patient states she is unable to ambulate now because of generalized weakness and states this morning he was unable to make the bathroom in time. - Related Data Home Medications Medication Instructions Recorded Confirmed Allopurinol 300 mg PO DAILY 02/08/15 06/23/18 Calcium Carbonate/Vitamin D3 1 tab PO HS 02/08/15 06/23/18 [Calcium 600-Vit D3 400 Tablet] Multivitamin [Men's Multi-Vitamin] 1 tab PO DAILY 02/08/15 06/23/18 Tiotropium 18 Mcg/Puff [Spiriva] 1 puff INHALATION RT-DAILY 12/25/15 06/23/18 Albuterol Nebulized [Ventolin 2.5 mg INHALATION RT-QID PRN 02/10/18 06/23/18 Nebulized] Budesonide-Formot 160-4.5 Mcg 2 puff INHALATION RT-BID PRN 02/10/18 06/23/18 [Symbicort 160-4.5 Mcg Inhaler] Carvedilol [Coreg] 6.25 mg PO QAM 02/10/18 06/23/18 Colchicine 0.6 mg PO DAILY PRN 02/10/18 06/23/18 FLUoxetine HCL [PROzac] 40 mg PO DAILY 02/10/18 06/23/18 Furosemide [Lasix] 40 mg PO DAILY 02/10/18 06/23/18 Insulin Detemir [Levemir Flextouch] 40 unit SQ HS 02/10/18 06/23/18 Insulin Lispro [humaLOG Kwikpen] 14 unit SQ AC-TID 02/10/18 06/23/18 Ipratropium Nebulized [Atrovent 0.5 mg INHALATION RT-QID PRN 02/10/18 06/23/18 Nebulized] Lisinopril [Zestril] 2.5 mg PO DAILY 02/10/18 06/23/18 Potassium Chloride [Klor-Con 20] 20 meq PO DAILY 02/10/18 06/23/18 metFORMIN HCL 1,000 mg PO DAILY 02/10/18 06/23/18 Apixaban [Eliquis] 5 mg PO BID 06/23/18 06/23/18 Aspirin EC [Ecotrin Low Dose] 81 mg PO HS 06/23/18 06/23/18 Atorvastatin Calcium [Lipitor] 10 mg PO HS 06/23/18 06/23/18 Carvedilol [Coreg] 12.5 mg PO HS 06/23/18 06/23/18 Gabapentin [Neurontin] 300 mg PO DAILY 06/23/18 06/23/18 [place]-3 Fatty Acids [[place]-3] 1,000 mg PO HS 06/23/18 06/23/18 Allergies Allergy/AdvReac Type Severity Reaction Status Date / Time No Known Allergies Allergy Verified 06/23/18 12:02 Review of Systems ROS Statement: Those systems with pertinent positive or pertinent negative responses have been documented in the HPI. ROS Other: All systems not noted in ROS Statement are negative. 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 History of Any Multi-Drug Resistant Organisms: None Reported Past Surgical History: Orthopedic Surgery Additional Past Surgical History / Comment(s): both shoulders- L shoulder rotator cuff repair and R shoulder arthroscopy, L leg fib/tib fx with pinns and screws, plate to R arm, prostate seed implants x 2, R arm B-cell lymphoma removed , circumcision, EGD and colonoscopy Past Anesthesia/Blood Transfusion Reactions: No Reported Reaction Past Psychological History: No Psychological Hx Reported Smoking Status: Former smoker Past Alcohol Use History: None Reported Past Drug Use History: None Reported - Past Family History Father Family Medical History: Hypertension Mother Family Medical History: Diabetes Mellitus General Exam - General Exam Comments Initial Comments: GENERAL: Patient is well-developed and well-nourished. Patient is nontoxic and well- hydrated and is in mild distress. ENT: Neck is soft and supple. No significant lymphadenopathy is noted. Oropharynx is clear. Moist mucous membranes. EYES: The sclera were anicteric and conjunctiva were pink and moist. Extraocular movements were intact and pupils were equal round and reactive to light. Eyelids were unremarkable. PULMONARY: Unlabored respirations. Good breath sounds bilaterally. No audible rales rhonchi or wheezing was noted. CARDIOVASCULAR: There is a regular rate and rhythm without any murmurs gallops or rubs. ABDOMEN: Soft and nontender with normal bowel sounds. No palpable organomegaly was noted. There is no palpable pulsatile mass. SKIN: Skin is clear with no lesions or rashes and otherwise unremarkable. NEUROLOGIC: Patient is alert and oriented x3. Cranial nerves II through XII are grossly intact. Motor and sensory are also intact. Normal speech, volume and content. Symmetrical smile. MUSCULOSKELETAL: Patient has no focal weakness in any of his extremities however both of his legs are extremely weak he can only lift either leg off the bed about an inch. Patient's telephone coin box collector bilaterally are equal but weak. No lower extremity swelling or edema. No calf tenderness. LYMPHATICS: No significant lymphadenopathy is noted PSYCHIATRIC: Normal psychiatric evaluation. Normal interpersonal interactions appears functionally intact in deals appropriately with others. No signs of anxiety. Limitations: no limitations Course Vital Signs 06/23/18 06/23/18 06/23/18 11:43 11:56 12:59 Temperature 97.6 F 97 F L 98.0 F Pulse Rate 74 74 73 Respiratory 20 18 16 Rate Blood Pressure 155/88 149/91 112/73 O2 Sat by Pulse 98 94 L 98 Oximetry Medical Decision Making - Medical Decision Making EKG shows sinus rhythm at 75 bpm [place] interval is 12/01/1933 QRS 84 QT interval 374 QTC is 417. Patient's EKG shows no ST segment elevation or depression or T wave abnormalities are noted. Computed tomography scan of the brain shows no acute abnormality. It does show sinusitis which is new. Chest x-ray shows no acute abnormality I spoke with Dr. Corado he accepted the patient I wrote admitting orders. - Lab Data Result diagrams: 06/23/18 12:00 06/23/18 12:00 Lab Results 06/23/18 06/23/18 06/23/18 Range/Units 12:00 12:00 12:00 WBC 8.5 (3.8-10.6) k/uL RBC 4.59 (4.30-5.90) m/uL Hgb 15.5 (13.0-17.5) gm/dL Hct 46.9 (39.0-53.0) % MCV 102.1 H (80.0-100.0) fL MCH 33.8 (25.0-35.0) pg MCHC 33.1 (31.0-37.0) g/dL RDW 18.3 H (11.5-15.5) % Plt Count 114 L (150-450) k/uL Neutrophils % 80 % Lymphocytes % 9 % Monocytes % 7 % Eosinophils % 2 % Basophils % 0 % Neutrophils # 6.8 (1.3-7.7) k/uL Lymphocytes # 0.8 L (1.0-4.8) k/uL Monocytes # 0.6 (0-1.0) k/uL Eosinophils # 0.1 (0-0.7) k/uL Basophils # 0.0 (0-0.2) k/uL Anisocytosis Slight Macrocytosis Moderate PT (9.0-12.0) sec INR (<1.2) APTT (22.0-30.0) sec Sodium 140 (137-145) mmol/L Potassium 5.2 H (3.5-5.1) mmol/L Chloride 105 (98-107) mmol/L Carbon Dioxide 21 L (22-30) mmol/L Anion Gap 14 mmol/L BUN 36 H (9-20) mg/dL Creatinine 0.95 (0.66-1.25) mg/dL Est GFR (CKD-EPI)AfAm 88 (>60 ml/min/1.73 sqM) Est GFR (CKD-EPI)NonAf 76 (>60 ml/min/1.73 sqM) Glucose 161 H (74-99) mg/dL POC Glucose (mg/dL) (75-99) mg/dL POC Glu Liquor Bridge Operator ID Calcium 9.9 (8.4-10.2) mg/dL Total Bilirubin 0.6 (0.2-1.3) mg/dL AST 47 (17-59) U/L ALT 50 (21-72) U/L Alkaline Phosphatase 60 (38-126) U/L Total Creatine Kinase 212 H (55-170) U/L CK-MB (CK-2) 3.2 H* (0.0-2.4) ng/mL CK-MB (CK-2) Rel Index 1.5 Troponin I <0.012 (0.000-0.034) ng/mL Total Protein 7.1 (6.3-8.2) g/dL Albumin 4.4 (3.5-5.0) g/dL Urine Color Urine Appearance (Clear) Urine pH (5.0-8.0) Ur Specific [place] (1.001-1.035) Urine Protein (Negative) Urine Glucose (UA) (Negative) Urine Ketones (Negative) Urine Blood (Negative) Urine Nitrite (Negative) Urine Bilirubin (Negative) Urine Urobilinogen (<2.0) mg/dL Ur Leukocyte Esterase (Negative) Urine Opiates Screen (NotDetected) Ur Oxycodone Screen (NotDetected) Urine Methadone Screen (NotDetected) Ur Propoxyphene Screen (NotDetected) Ur Barbiturates Screen (NotDetected) U Tricyclic Antidepress (NotDetected) Ur Phencyclidine Scrn (NotDetected) Ur Amphetamines Screen (NotDetected) U Methamphetamines Scrn (NotDetected) U Benzodiazepines Scrn (NotDetected) Urine Cocaine Screen (NotDetected) U Marijuana (THC) Screen (NotDetected) 06/23/18 06/23/18 06/23/18 Range/Units 12:00 12:05 12:46 WBC (3.8-10.6) k/uL RBC (4.30-5.90) m/uL Hgb (13.0-17.5) gm/dL Hct (39.0-53.0) % MCV (80.0-100.0) fL MCH (25.0-35.0) pg MCHC (31.0-37.0) g/dL RDW (11.5-15.5) % Plt Count (150-450) k/uL Neutrophils % % Lymphocytes % % Monocytes % % Eosinophils % % Basophils % % Neutrophils # (1.3-7.7) k/uL Lymphocytes # (1.0-4.8) k/uL Monocytes # (0-1.0) k/uL Eosinophils # (0-0.7) k/uL Basophils # (0-0.2) k/uL Anisocytosis Macrocytosis PT 10.9 (9.0-12.0) sec INR 1.1 (<1.2) APTT 24.8 (22.0-30.0) sec Sodium (137-145) mmol/L Potassium (3.5-5.1) mmol/L Chloride (98-107) mmol/L Carbon Dioxide (22-30) mmol/L Anion Gap mmol/L BUN (9-20) mg/dL Creatinine (0.66-1.25) mg/dL Est GFR (CKD-EPI)AfAm (>60 ml/min/1.73 sqM) Est GFR (CKD-EPI)NonAf (>60 ml/min/1.73 sqM) Glucose (74-99) mg/dL POC Glucose (mg/dL) 159 H (75-99) mg/dL POC Glu Liquor Bridge Operator ID Salgat, Isa Calcium (8.4-10.2) mg/dL Total Bilirubin (0.2-1.3) mg/dL AST (17-59) U/L ALT (21-72) U/L Alkaline Phosphatase (38-126) U/L Total Creatine Kinase (55-170) U/L CK-MB (CK-2) (0.0-2.4) ng/mL CK-MB (CK-2) Rel Index Troponin I (0.000-0.034) ng/mL Total Protein (6.3-8.2) g/dL Albumin (3.5-5.0) g/dL Urine Color Light Yellow Urine Appearance Clear (Clear) Urine pH 5.0 (5.0-8.0) Ur Specific [place] 1.007 (1.001-1.035) Urine Protein Negative (Negative) Urine Glucose (UA) Negative (Negative) Urine Ketones Negative (Negative) Urine Blood Negative (Negative) Urine Nitrite Negative (Negative) Urine Bilirubin Negative (Negative) Urine Urobilinogen <2.0 (<2.0) mg/dL Ur Leukocyte Esterase Negative (Negative) Urine Opiates Screen Not Detected (NotDetected) Ur Oxycodone Screen Not Detected (NotDetected) Urine Methadone Screen Not Detected (NotDetected) Ur Propoxyphene Screen Not Detected (NotDetected) Ur Barbiturates Screen Not Detected (NotDetected) U Tricyclic Antidepress Not Detected (NotDetected) Ur Phencyclidine Scrn Not Detected (NotDetected) Ur Amphetamines Screen Not Detected (NotDetected) U Methamphetamines Scrn Not Detected (NotDetected) U Benzodiazepines Scrn Not Detected (NotDetected) Urine Cocaine Screen Not Detected (NotDetected) U Marijuana (THC) Screen Not Detected (NotDetected) Disposition Clinical Impression: Altered mental state, Sinusitis Disposition: ADMITTED IP TO THIS HOSP Referrals: [facility],Clinic [Primary Care Provider] - 1-2 days Time of Disposition: 13:34
[2018-06-23 12:10] LABS: Glucose,Whole Blood 159 mg/dL (75-99)
[2018-06-23 12:31] LABS: Anisocytosis Slight; Basophils % (A) 0 %; Eosinophils # (A) 0.1 k/uL (0-0.7); Eosinophils % (A) 2 %; HCT 46.9 % (39.0-53.0); HGB 15.5 gm/dL (13.0-17.5); Lymphocytes # (A) 0.8 k/uL (1.0-4.8); Lymphocytes % (A) 9 %; MCH 33.8 pg (25.0-35.0); MCHC 33.1 g/dL (31.0-37.0); MCV 102.1 fL (80.0-100.0); Macrocytosis Moderate; Mean Platelet Volume 8.8; Monocytes # (A) 0.6 k/uL (0-1.0); Monocytes % (A) 7 %; Neutrophils # (A) 6.8 k/uL (1.3-7.7); Neutrophils % (A) 80 %; Platelet Count 114 k/uL (150-450); RBC 4.59 m/uL (4.30-5.90); RDW 18.3 % (11.5-15.5); WBC 8.5 k/uL (3.8-10.6)
[2018-06-23 12:41] LABS: INR 1.1 (<1.2); Partial Thromboplastin Time 24.8 sec (22.0-30.0); Prothrombin Time 10.9 sec (9.0-12.0)
[2018-06-23 12:45] LABS: Albumin 4.4 g/dL (3.5-5.0); Calcium 9.9 mg/dL (8.4-10.2); Potassium 5.2 mmol/L (3.5-5.1); Total Bilirubin 0.6 mg/dL (0.2-1.3); Total Protein 7.1 g/dL (6.3-8.2)
--- NOTE | 2018-06-23 12:45 | CT ---
EXAMINATION TYPE: CT brain wo con DATE OF EXAM: 06/23/2018 COMPARISON: 02/13/2015 HISTORY: 82-year-old male confusion, altered mental status, history of 2 prior CVAs. TECHNIQUE: Examination was done in axial plane without intravenous contrast. Coronal and sagittal r econstructions performed. CT DLP: 1158.8 mGycm Automated exposure control for dose reduction was used. FINDINGS: There is moderate generalized atrophy. Encephalomalacia in the right parieto-occipital junction and r ight occipital lobe have progressed from 02/13/2015. Small cortical infarct posterior left frontal lob e is unchanged. Deep white matter infarcts in the left smith radiata redemonstrated. Small perivascu lar space versus lacunar infarct right basal ganglia is unchanged. Atherosclerotic calcifications wit hin the carotid siphons. There is no evidence of acute intracranial hemorrhage, acute ischemic changes, mass, mass-effect, or extra-axial fluid collection. There is no effacement of cerebral sulci or basal subarachnoid cister ns. There is no hydrocephalus. There is no midline shift. Anderson-white matter distinction is preserv ed. New complete opacification left maxillary sinus. Mastoid air cells well pneumatized. Orbits and globe s appear intact. IMPRESSION: 1. Moderate atrophy. Progressive encephalomalacia right parieto-occipital junction and right occipita l lobe compatible with now chronic infarct. Small area of old posterior left frontal cortical infarct and chronic deep white matter infarcts on the left. 2. No acute intracranial abnormality seen. 3. New severe left maxillary sinus disease with complete opacification.
[2018-06-23 12:48] LABS: Creatine Kinase 212 U/L (55-170)
--- NOTE | 2018-06-23 12:56 | XR ---
EXAMINATION TYPE: XR chest 2V DATE OF EXAM: 06/23/2018 COMPARISON: 02/10/2018 INDICATION: Altered mental status TECHNIQUE: Frontal and lateral views of the chest are obtained. FINDINGS: The heart size is normal. The pulmonary vasculature is normal. The lungs are clear. Old left rib fractures are evident. IMPRESSION: 1. No acute pulmonary process.
[2018-06-23 13:02] LABS: Troponin I <0.012 ng/mL (0.000-0.034)
[2018-06-23 13:03] LABS: Creatine Kinase MB 3.2 ng/mL (0.0-2.4)
[2018-06-23 13:08] LABS: Appearance,Urine Clear (Clear); Bilirubin,Urine Negative (Negative); Blood,Urine Negative (Negative); Color,Urine Light Yellow; Glucose,Urine (UA) Negative (Negative); Ketones,Urine Negative (Negative); Leukocyte Esterase,Urine Negative (Negative); Nitrite,Urine Negative (Negative); Protein,Urine Negative (Negative); Specific Gravity,Urine 1.007 (1.001-1.035); Urobilinogen,Urine <2.0 mg/dL (<2.0)
[2018-06-23] MEDS ORDERED: AMPICILLIN-SULBACTAM 3 GM in SODIUM CHLORIDE 0.9% 100 ML IVPB STA (13:14)
[2018-06-23 13:24] LABS: Amphetamine Screen,Urine Not Detected (NotDetected); Barbiturate Screen,Urine Not Detected (NotDetected); Benzodiazepines Screen,Urine Not Detected (NotDetected); Cocaine Screen,Urine Not Detected (NotDetected); Methadone Screen, Urine Not Detected (NotDetected); Opiate Screen,Urine Not Detected (NotDetected); Oxycodone Screen, Urine Not Detected (NotDetected); Phencyclidine Screen,Urine Not Detected (NotDetected); Tricyclic Antidepressant,Urine Not Detected (NotDetected); Urn Cannabinoid Scrn Not Detected (NotDetected)
[2018-06-23] MEDS ORDERED: IPRATROPIUM 0.5 MG/2.5 ML NEBU INHALATION PRN (15:35)
[2018-06-23] MEDS ORDERED: ALBUTEROL NEBULIZED 2.5 MG/3 ML INHALATION PRN (15:35)
[2018-06-23] MEDS ORDERED: COLCHICINE 0.6 MG EACH PO PRN (15:35)
--- NOTE | 2018-06-23 16:38 | HP ---
HISTORY AND PHYSICAL CHIEF COMPLAINT: Stroke-like symptoms and confusion HISTORY OF PRESENT ILLNESS: This 82-year-old gentleman with a past medical history of CVA/TIA, multiple at least 3 times, dementia, diabetes mellitus, history of DVT, history of GERD, hypertension and hyperlipidemia, history of sleep apnea, being followed by [facility] and Dr. Escamilla in the outpatient setting. Recently admitted with embolism to [facility]. Currently this morning the patient was confused according to the family and the patient is unable to figure out where the patient is which lasted for about 1 hour. Patient also complains of numbness and bilateral leg weakness and possible UTI is considered. Patient admitted to the hospital further evaluation and treatment. CT scan showed moderate atrophy, progressive encephalomalacia of the right parieto-occipital junction with right occipital infarct and as well as small area of old posterior left infarct and changes thought to be chronic in nature. There is no history of fever, rigors or chills. No history of headache, headache, loss of consciousness or seizures. Patient has some difficulty in memory and as well as dysarthria at this time. PAST MEDICAL HISTORY: Of multiple strokes, CVA, TIA, diabetes type 2, history of dementia, history of GERD, hypertension and hyperlipidemia. MEDICATIONS: Prior to admission include home medications are: 1. Metformin 1000 mg p.o. daily. 2. Spiriva 1 puff daily. 3. Klor-Con 20 mEq b.i.d. 4. [place]-3 1000 mg p.o. q.h.s. 5. Multivitamins 1 p.o. daily. 6. Zestril 2.5 mg daily. 7. Ativan 0.5 mg q.i.d. p.r.n. 8. Humalog 14 subcu a.c. t.i.d. 9. Levemir 40 units subcu q.h.s. 10.Neurontin 300 mg p.o. daily. 11.Lasix 40 mg p.o. daily. 12.Prozac 40 mg p.o. daily. 13.Colchicine 0.6 mg daily p.r.n. 14.Coreg 12.5 mg q.h.s. and 6.25 mg p.o. q.a.m. 15.Calcium with vitamin D 1 tablet q.h.s. 16.Symbicort 160/4.5 two puffs b.i.d. p.r.n. 17.Lipitor 10 mg q.h.s. 18.Ecotrin 81 mg p.o. daily. 19.Eliquis 5 mg p.o. b.i.d. 20.Allopurinol 300 mg p.o. b.i.d. 21.Albuterol 2.5 q.i.d. p.r.n. ALLERGIES: None. FAMILY HISTORY: Family history of hypertension in the family. SOCIAL HISTORY: Previous history of smoking. No history of current smoking or alcohol intake. REVIEW OF SYSTEMS: ENT: Diminished hearing and diminished vision. CARDIOVASCULAR: No angina or palpitations. RESPIRATION no cough or hemoptysis. GI: No nausea or vomiting. : No dysuria or hematuria. NERVOUS SYSTEM: No numbness or weakness. Otherwise as mentioned earlier. ALLERGY/IMMUNOLOGY: No asthma or hayfever. MUSCULOSKELETAL as mentioned earlier. HEMATOLOGY/ONCOLOGY: No history of anemia. ENDOCRINE: Diabetes. CONSTITUTIONAL: As mentioned earlier. DERMATOLOGY: Negative. RHEUMATOLOGY: Negative. PSYCHIATRY: As mentioned earlier. PHYSICAL EXAMINATION: GENERAL: Alert and oriented times three. VITAL SIGNS: Pulse 76, blood pressure 128/70, respirations 16, Temperature 98 degrees, pulse ox 98% on 2 L. HEENT is conjunctivae normal. Oral mucosa moist. NECK is no jugular venous distention. No carotid bruit. No lymph nodes enlargement. CARDIOVASCULAR SYSTEM: S1, S2 muffled. RESPIRATORY: Breath sounds diminished in the bases. A few scattered rhonchi. No crackles. ABDOMEN: Soft, obese, nontender. No mass palpable. LEGS no edema and no swelling. NERVOUS SYSTEM: Higher functions as mentioned earlier. Moves all 4 limbs. Mild diffuse weakness. No focal motor or sensory deficits. LYMPHATICS: No lymph nodes palpable in the neck, axillae or groin. SKIN: No ulcer, rashes or bleeding. LAB STUDIES: At this time shows WBC 8.5, hemoglobin is 15.5, sodium 140, potassium 5.2. CK- MB is 3.2. UA noted. ASSESSMENT: 1. Confusion, change in mental status possible metabolic encephalopathy, possible acute stroke. 2. Increased MCV. 3. Sinusitis. 4. History of multiple strokes including right parieto-occipital encephalomalacia and also left posterior frontal cortical infarct on the CT scan. 5. History of dementia. 6. Diabetes type 2. 7. History of deep vein thrombosis. 8. Gastroesophageal reflux disease. 9. Hypertension. 10.Hyperlipidemia. 11.History of degenerative joint disease. 12.History of pneumonia. 13.History of renal disease. 14.Sleep apnea. 15.History of prostate cancer. RECOMMENDATIONS AND DISCUSSION: In this 82-year-old gentleman who presented with multiple complex medical issues , we will monitor the patient closely, continue the current medications, management and symptomatic treatment. We will initiate neurovascular workup and neurology consultation. We will continue the antiplatelet agents and DVT prophylaxis. We will also initiate empiric antibiotics for sinusitis which was shown on the CT scan. Prognosis guarded because of multiple complex medical issues. Further recommendations to follow. Patient had some features of pseudobulbar symptoms also. The rest of the home medications ordered. Medication reconciliation done. DVT prophylaxis. See orders for details. Discussed with the patient and the staff. A copy of dictation being forwarded to Dr. Escamilla who is the primary physician. DEE / MELCHORN: [id number] / ANGEL
[2018-06-23 20:09] VITALS: BMI 38.6
[2018-06-23] MEDS: INSULIN ASPART 100 UNIT/ML 1 ML 10 ML VIAL SQ SCH ×3 (20:57→21:47)
[2018-06-23] MEDS ORDERED: NON-FORMULARY DRUG (Omega-3 Fatty Acids [Omega-3] 1,000 MG) PO SCH (21:00)
[2018-06-23] MEDS: AMPICILLIN-SULBACTAM 3 GM in SODIUM CHLORIDE 0.9% 100 ML IVPB SCH (21:09)
[2018-06-23] MEDS: CARVEDILOL 12.5 MG TAB PO SCH (21:10)
[2018-06-23] MEDS: APIXABAN 5 MG TAB PO SCH (21:10)
[2018-06-23] MEDS: ATORVASTATIN 10 MG TAB PO SCH (21:11)
[2018-06-23] MEDS: CALCIUM CARB-VIT D 500MG-200UN 1 EACH TAB PO SCH (21:11)
[2018-06-23] MEDS: ASPIRIN 81 MG PO SCH (21:11)
[2018-06-23 21:30] LABS: Glucose,Whole Blood 197 mg/dL (75-99)
[2018-06-23] MEDS ORDERED: INSULIN DETEMIR 100 UNIT/ML 10 ML VIAL SQ ONE (22:23)
[2018-06-24] MEDS: INSULIN DETEMIR 100 UNIT/ML 10 ML VIAL SQ SCH ×2 (05:13→20:44)
[2018-06-24] MEDS: AMPICILLIN-SULBACTAM 3 GM in SODIUM CHLORIDE 0.9% 100 ML IVPB SCH ×5 (05:14→23:13)
[2018-06-24 06:14] LABS: Glucose,Whole Blood 127 mg/dL (75-99)
[2018-06-24 06:29] LABS: Anisocytosis Slight; Basophils % (A) 0 %; Eosinophils # (A) 0.2 k/uL (0-0.7); Eosinophils % (A) 2 %; HCT 39.6 % (39.0-53.0); HGB 13.4 gm/dL (13.0-17.5); Lymphocytes # (A) 0.6 k/uL (1.0-4.8); Lymphocytes % (A) 8 %; MCH 34.6 pg (25.0-35.0); MCHC 33.9 g/dL (31.0-37.0); Macrocytosis Moderate; Mean Platelet Volume 8.4; Monocytes # (A) 0.6 k/uL (0-1.0); Monocytes % (A) 8 %; Neutrophils # (A) 5.6 k/uL (1.3-7.7); Neutrophils % (A) 79 %; RBC 3.88 m/uL (4.30-5.90); RDW 18.1 % (11.5-15.5); WBC 7.2 k/uL (3.8-10.6)
[2018-06-24] MEDS: INSULIN ASPART 100 UNIT/ML 1 ML 10 ML VIAL SQ SCH ×7 (06:40→20:42)
[2018-06-24] MEDS: metFORMIN 500 MG TAB PO SCH (06:46)
[2018-06-24 07:06] LABS: Anion Gap 7 mmol/L; Blood Urea Nitrogen 30 mg/dL (9-20); Calcium 9.2 mg/dL (8.4-10.2); Carbon Dioxide 22 mmol/L (22-30); Chloride 109 mmol/L (98-107); Cholesterol 117 mg/dL (<200); Glucose 140 mg/dL (74-99); HDL Cholesterol 26 mg/dL (40-60); LDL Cholesterol,Calculated 56 mg/dL (0-99); Potassium 4.7 mmol/L (3.5-5.1); Sodium 138 mmol/L (137-145); Triglycerides 174 mg/dL (<150)
[2018-06-24 07:51] LABS: Platelet Count 88 k/uL (150-450)
[2018-06-24] MEDS ORDERED: NON-FORMULARY DRUG (Tiotropium 18 Mcg/Puff 1 PUFF) INHALATION SCH (08:00)
[2018-06-24] MEDS: CARVEDILOL 6.25 MG TAB PO SCH (08:11)
[2018-06-24] MEDS: APIXABAN 5 MG TAB PO SCH ×2 (08:11→20:38)
[2018-06-24] MEDS: ALLOPURINOL 300 MG TAB PO SCH (08:11)
[2018-06-24] MEDS: GABAPENTIN 300 MG CAP PO SCH (08:12)
[2018-06-24] MEDS: LISINOPRIL 2.5 MG TAB PO SCH (08:12)
[2018-06-24] MEDS: FLUoxetine HCL 20 MG CAP PO SCH (08:12)
[2018-06-24] MEDS: POTASSIUM CHLORIDE ER 20 MEQ TAB.ER PO SCH (08:12)
[2018-06-24] MEDS: FUROSEMIDE 40 MG TAB PO SCH (08:12)
[2018-06-24 08:40] LABS: Hemoglobin A1C 7.8 % (4.0-6.0)
[2018-06-24] MEDS: SYMBICORT 160-4.5 MCG INHALER INHALATION PRN (09:07)
[2018-06-24 11:59] LABS: Glucose,Whole Blood 139 mg/dL (75-99)
[2018-06-24] MEDS: MULTIVITAMINS, THERA 1 EACH TAB PO SCH (12:21)
[2018-06-24 17:21] LABS: Glucose,Whole Blood 180 mg/dL (75-99)
[2018-06-24] MEDS: ATORVASTATIN 10 MG TAB PO SCH (20:39)
[2018-06-24] MEDS: CARVEDILOL 12.5 MG TAB PO SCH (20:39)
[2018-06-24] MEDS: CALCIUM CARB-VIT D 500MG-200UN 1 EACH TAB PO SCH (20:39)
[2018-06-24] MEDS: ASPIRIN 81 MG PO SCH (20:39)
[2018-06-24 20:42] LABS: Glucose,Whole Blood 131 mg/dL (75-99)
--- NOTE | 2018-06-24 21:03 | PN ---
PROGRESS NOTE DATE OF SERVICE: 06/24/2018. This 82-year-old gentleman who was admitted with confusion, change in mental status, metabolic encephalopathy, was evaluated for possible stroke. Neurology evaluation in progress. No chest pain. No palpitations. No fever. PHYSICAL EXAM: Alert and oriented x3. The pulse is 86, blood pressure 102/60, respirations 16, temperature 98 degrees, pulse ox 97% on 2 L. HEENT: Conjunctivae normal. CARDIOVASCULAR: S1, S2 muffled. RESPIRATORY: Breath sounds diminished in the bases. No rhonchi. No crackles. ABDOMEN: Soft, nontender. LEGS: No edema, no swelling. NERVOUS SYSTEM: Diffusely weak. LABS: WBC 7.2, platelets 88. ASSESSMENT: 1. Confusion change in mental status possible metabolic encephalopathy, possible acute transient ischemic attack or stroke. 2. Increased MCV. 3. Sinusitis. 4. History of multiple strokes including right parieto-occipital encephalomalacia and as well as left posterior frontal cortical infarct in the CT scan. 5. History of dementia. 6. Thrombocytopenia. 7. Diabetes mellitus type 2. 8. History of deep vein thrombosis. 9. Gastroesophageal reflux disease. 10.Hypertension. 11.Hyperlipidemia. 12.History of degenerative joint disease. 13.History of pneumonia. 14.History of renal disease. 15.History of sleep apnea. 16.History of prostate cancer. RECOMMENDATION AND DISCUSSION: I recommend to continue current medications, monitor and symptomatic treatment. Otherwise at this time I would recommend continue the current medications, continue with symptomatic treatment and the patient is on apixaban and continue with antiplatelet agents. Neurology consultation. PT, OT evaluation. Guarded prognosis because of multiple complex medical issues. Further recommendations to follow. MMODL / IJN: [id number] /
--- NOTE | 2018-06-24 22:43 | US ---
EXAMINATION TYPE: US carotid duplex BILAT DATE OF EXAM: 06/24/2018 COMPARISON: NONE CLINICAL HISTORY: TIA. TIA EXAM MEASUREMENTS: RIGHT: Peak Systolic Velocity (PSV) cm/sec ----- Right CCA: 57.3 ----- Right ICA: 67.7 ----- Right ECA: 100.0 ICA/CCA ratio: 1.2 RIGHT: End Diastole cm/sec ----- Right CCA: 10.3 ----- Right ICA: 10.3 ----- Right ECA: 16.3 LEFT: Peak Systolic Velocity (PSV) cm/sec ----- Left CCA: 70.7 ----- Left ICA: 139.7 ----- Left ECA: 82.6 ICA/CCA ratio: 2.0 LEFT: End Diastole cm/sec ----- Left CCA: 15.6 ----- Left ICA: 27.4 ----- Left ECA: 0 VERTEBRALS (direction of flow): Right Vertebral: Antegrade Left Vertebral: Antegrade Rhythm: Normal Velocities on the left ICA are lower than on previous exam. Plaque in bulbs. IMPRESSION: There is significant shadowing due to calcified plaque in both internal carotid arteries . Lumen size cannot be evaluated in this area. There is elevated velocity on the left internal caroti d artery that suggests 50-70% stenosis. The velocities suggest up to 50% stenosis of the right general internist and physician leader al carotid artery. There is incomplete limited visualization of the lumen of the carotid arteries. CT angiogram or MR angiogram would be helpful for further evaluation if clinically indicated. Criteria for Assigning % of Stenosis / Diameter reduction (Estimation based on the indirect measurements of the internal carotid artery velocities (ICA PSV). 1. Normal (no stenosis)=ICA PSV < 125 cm/s: ratio < 2.0: ICA EDV<40 cm/s. 2. Less than 50% stenosis=ICA PSV < 125 cm/s: ratio < 2.0: ICA EDV<40 cm/s. 3. 50 to 69% stenosis=ICA PSV of 125 to 230 cm/s: ration 2.0 ? 4.0: ICA EDV 40-100 cm/s. 4. Greater than 70% stenosis to near occlusion= ICA PSV > 230 cm/s: ratio > 4.0: ICA EDV > 100 cm/s. 5. Near occlusion= ICA PSV velocities may be low or undetectable: variable ratio and ICA EDV. 6. Total occlusion=unable to detect flow.
[2018-06-25 05:56] LABS: Glucose,Whole Blood 122 mg/dL (75-99)
[2018-06-25] MEDS: AMPICILLIN-SULBACTAM 3 GM in SODIUM CHLORIDE 0.9% 100 ML IVPB SCH ×3 (06:01→17:42)
[2018-06-25 06:11] LABS: Anisocytosis Slight; Basophils % (A) 0 %; Eosinophils # (A) 0.2 k/uL (0-0.7); Eosinophils % (A) 2 %; HCT 42.2 % (39.0-53.0); HGB 13.6 gm/dL (13.0-17.5); Lymphocytes # (A) 0.6 k/uL (1.0-4.8); Lymphocytes % (A) 9 %; MCH 32.5 pg (25.0-35.0); MCHC 32.2 g/dL (31.0-37.0); MCV 100.9 fL (80.0-100.0); Macrocytosis Slight; Mean Platelet Volume 8.7; Monocytes # (A) 0.5 k/uL (0-1.0); Monocytes % (A) 7 %; Neutrophils # (A) 5.7 k/uL (1.3-7.7); Neutrophils % (A) 79 %; Platelet Count 100 k/uL (150-450); RBC 4.18 m/uL (4.30-5.90); RDW 17.1 % (11.5-15.5); WBC 7.2 k/uL (3.8-10.6)
[2018-06-25] MEDS: INSULIN ASPART 100 UNIT/ML 1 ML 10 ML VIAL SQ SCH ×7 (06:15→21:20)
[2018-06-25 06:31] LABS: Calcium 9.6 mg/dL (8.4-10.2); Potassium 5.2 mmol/L (3.5-5.1)
[2018-06-25] MEDS: metFORMIN 500 MG TAB PO SCH (07:10)
[2018-06-25] MEDS: SYMBICORT 160-4.5 MCG INHALER INHALATION PRN ×2 (08:09→20:27)
--- NOTE | 2018-06-25 08:46 | CONS ---
CONSULTATION DATE OF CONSULTATION: 06/24/2018. CHIEF COMPLAINT: Transient ischemic attack. HISTORY OF PRESENT ILLNESS: Mr. Solis is a pleasant 82-year-old male, who is being evaluated today on 06/24/2018 by the neurology service per the request of Dr. Corado for a possible transient ischemic attack. The patient was brought into [facility] Emergency Room after he was found to be confused at home. The episode started suddenly and lasted approximately 1 hour. The patient also felt some numbness and weakness in his legs. No seizure-like activity was described and no loss of consciousness occurred. The patient has a previous history of strokes and transient ischemic attacks. In the emergency room, a CT scan of the brain was done which showed right parieto-occipital encephalomalacia and left frontal lobe cortical infarct, all of which are old. The patient was admitted for further workup and management. His chest x-ray was normal. His comprehensive metabolic profile showed slightly elevated BUN at 30 and glucose at 140. His fasting lipid panel was normal except for slightly elevated triglycerides at 174. His CBC was normal. The patient denies any recurrence of any neurological symptoms since his arrival to the emergency room. PAST MEDICAL HISTORY: Strokes, transient ischemic attacks, diabetes, dementia, gastroesophageal reflux disease, hypertension, dyslipidemia. FAMILY HISTORY: Positive for hypertension. SOCIAL HISTORY: The patient is a former smoker. He denies any alcohol or drug use. HOME MEDICATIONS: Reviewed in the chart. ALLERGIES: No known drug allergies. REVIEW OF SYSTEMS: CONSTITUTIONAL: Positive for fatigue. EYES: Negative. ENT: Positive for chronic diminished hearing. CARDIOVASCULAR: Negative. RESPIRATORY: Positive for occasional shortness of breath. NEUROLOGICAL: As mentioned above. GASTROINTESTINAL: Positive for occasional heartburn. GENITOURINARY: Negative. DERMATOLOGICAL: Negative. ENDOCRINE: Positive for diabetes. PSYCHIATRIC: Negative. MUSCULOSKELETAL: Positive for occasional joint pain. PHYSICAL EXAM: Vital signs show a temperature of 97.1, pulse 69, respirations 16, blood pressure 121/64. GENERAL APPEARANCE: The patient is an obese male who appears to be in no acute distress. HEENT: Normocephalic, atraumatic, no facial asymmetry is seen. Neck is supple with no masses felt. CARDIOVASCULAR: Regular rate and rhythm. ABDOMEN: Nontender, nondistended. Extremities showed edema with no clubbing seen. NEUROLOGICAL EXAM: The patient is awake and oriented x3. Speech and language are normal. Strength examination showed 3/5 strength in bilateral mixer whipped topping, 4+ out of 5 strength in the left lower extremity, 5- out of 5 strength in the right lower extremity, and in bilateral proximal upper extremities. Sensory exam showed diminished light touch sensation on the left compared to the right. No facial asymmetry is seen on cranial nerve testing. IMPRESSION: 1. Transient ischemic attack. 2. Altered mental status, resolved. 3. History of ischemic strokes. 4. Weakness secondary to old strokes. RECOMMENDATION: The patient does appear to have suffered a transient ischemic attack with a transient episode of altered mental status and extremity numbness. These symptoms resolved after approximately 1 hour. The patient is already on aspirin and Eliquis. Continue with this current regiment. I will order a carotid Doppler, and serum homocysteine level. Continue IV hydration as tolerated. Physical therapy has been consulted. I will continue to follow with you. Further recommendations to follow. Thank you for allowing me to participate in the care of your patient. If you have any questions, please feel free to contact me. DEE / ELLIS: [id number] /
[2018-06-25] MEDS: FLUoxetine HCL 20 MG CAP PO SCH (10:47)
[2018-06-25] MEDS: ALLOPURINOL 300 MG TAB PO SCH (10:47)
[2018-06-25] MEDS: APIXABAN 5 MG TAB PO SCH ×2 (10:47→20:21)
[2018-06-25] MEDS: POTASSIUM CHLORIDE ER 20 MEQ TAB.ER PO SCH (10:48)
[2018-06-25] MEDS: FUROSEMIDE 40 MG TAB PO SCH (10:48)
[2018-06-25] MEDS: LISINOPRIL 2.5 MG TAB PO SCH (10:48)
[2018-06-25] MEDS: GABAPENTIN 300 MG CAP PO SCH (10:49)
[2018-06-25] MEDS: CARVEDILOL 6.25 MG TAB PO SCH (10:49)
[2018-06-25] MEDS: MULTIVITAMINS, THERA 1 EACH TAB PO SCH (12:12)
[2018-06-25 12:22] LABS: Glucose,Whole Blood 141 mg/dL (75-99)
--- NOTE | 2018-06-25 14:27 | P.PN ---
Subjective Progress Note Date: 06/25/18 Principal diagnosis: TIA Neurology is following an 82-year-old male for TIA. Patient was brought to the emergency room after becoming confused at home. Onset of occurrence was sudden and lasted approximately 1 hour. Patient also had some numbness and weakness in the bilateral lower extremities. No seizure-like activity was described, no loss of consciousness and no other neurological symptoms were described. Patient has a previous history of strokes and TIA. CT in the emergency room of the brain noted right parietal occipital encephalomalacia in left frontal lobe cortical infarct all of which were old. Chest x-ray was normal. Lipid panel noted elevated triglycerides. CBC was normal. Patient denies any recurrence of any neurological symptoms post arrival. On contact today, patient was alert and oriented 3, supine in bed resting in no acute distress with no family or visitors in the room. Objective - Vital Signs Vital signs: Vital Signs Temp 96.4 F L 06/25/18 08:00 Pulse 75 06/25/18 12:00 Resp 16 06/25/18 12:00 BP 112/63 06/25/18 03:30 Pulse Ox 95 06/25/18 08:00 Intake & Output 06/24/18 06/25/18 06/25/18 18:59 06:59 18:59 Intake Total 800 40 236 Output Total 500 1000 175 Balance 300 -960 61 Weight 114 kg Intake: IV 40 0.9 40 Intake, IV Titration 200 Amount Ampicillin-Sulbactam 3 gm 200 In Sodium Chloride 0.9% 100 ml @ 100 mls/hr IVPB Q6HR [facility] Rx#:[id number] Oral 600 236 Output: Urine 500 1000 175 Other: Voiding Method Urinal Urinal Urinal # Voids 1 2 - Exam General appearance: alert, oriented x3, no apparent distress Head: atraumatic, normocephalic Eyes: PERRLA, EOMI. 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 sensation: Unremarkable Psychological: mood and affect appropriate for setting - Labs CBC & Chem 7: 06/25/18 05:44 06/25/18 05:44 Labs: Abnormal Lab Results - Last 24 Hours (Table) 06/23/18 06/24/18 06/24/18 Range/Units 12:00 17:07 20:40 RBC (4.30-5.90) m/uL MCV (80.0-100.0) fL RDW (11.5-15.5) % Plt Count (150-450) k/uL Lymphocytes # (1.0-4.8) k/uL Potassium (3.5-5.1) mmol/L BUN (9-20) mg/dL Glucose (74-99) mg/dL POC Glucose (mg/dL) 180 H 131 H (75-99) mg/dL Hemoglobin A1c 7.8 H (4.0-6.0) % 06/25/18 06/25/18 06/25/18 Range/Units 05:44 05:44 05:55 RBC 4.18 L (4.30-5.90) m/uL MCV 100.9 H (80.0-100.0) fL RDW 17.1 H (11.5-15.5) % Plt Count 100 L (150-450) k/uL Lymphocytes # 0.6 L (1.0-4.8) k/uL Potassium 5.2 H (3.5-5.1) mmol/L BUN 29 H (9-20) mg/dL Glucose 119 H (74-99) mg/dL POC Glucose (mg/dL) 122 H (75-99) mg/dL Hemoglobin A1c (4.0-6.0) % 06/25/18 Range/Units 12:02 RBC (4.30-5.90) m/uL MCV (80.0-100.0) fL RDW (11.5-15.5) % Plt Count (150-450) k/uL Lymphocytes # (1.0-4.8) k/uL Potassium (3.5-5.1) mmol/L BUN (9-20) mg/dL Glucose (74-99) mg/dL POC Glucose (mg/dL) 141 H (75-99) mg/dL Hemoglobin A1c (4.0-6.0) % Microbiology - Last 24 Hours (Table) 06/23/18 13:50 Blood Culture - Preliminary Blood No Growth after 24 hours Assessment and Plan (1) Altered mental status Current Visit: Yes Status: Acute Code(s): R41.82 - ALTERED MENTAL STATUS, UNSPECIFIED SNOMED Code(s): 795820219 (2) TIA (transient ischemic attack) Current Visit: Yes Status: Acute Code(s): G45.9 - TRANSIENT CEREBRAL ISCHEMIC ATTACK, UNSPECIFIED SNOMED Code(s): 811186589 (3) Weakness due to old stroke Current Visit: Yes Status: Acute Code(s): I69.998 - OTHER SEQUELAE FOLLOWING UNSPECIFIED CEREBROVASCULAR DISEASE; R53.1 - WEAKNESS SNOMED Code(s) : 061647626783427 Plan: 1. Altered mental status Altered mental status appears related to #2 below. Correct any other correctable underlying etiology defer to management by primary team. 2. TIA Based on patient's symptoms, resolution and patient's past medical history, is with reasonable medical certainty that the patient experienced transient ischemic attack. Patient did have carotid Doppler study which noted shadowing due to calcified plaque in both internal carotid arteries. Elevated velocity within the left ICA suggesting 50-70% stenosis. Right ICA noted up to 50% stenosis. Incomplete visualization of the carotid arteries. CT angiogram or MR angiogram recommended. Based on carotid Doppler findings, CT angiogram of the head and neck has been ordered pending. EEG is ordered. Patient is currently taking 81 mg aspirin daily. Patient is also noted to be on Lipitor 10 mg daily at bedtime. Given patient's multiple event history recommend increasing Lipitor to 40 mg daily at bedtime. Continue neuro checks as ordered. 3. History of ischemic stroke with secondary weakness Patient's imaging notes prior ischemic stroke. Patient does have noted weakness in extremities as noted in physical exam findingssee physical exam. Defer any secondary management to primary team. Consult PT recommended STATUS: Neurology will continue to follow and provide updates as needed or warranted. Feel free to contact our office with any questions. I discussed the patients history, physical exam, diagnostic testing, lab work and imaging with Dr Patton prior to implementing the plan above. He agrees with the plan as implemented prior to implementation.
--- NOTE | 2018-06-25 15:43 | PN ---
PROGRESS NOTE DATE OF SERVICE: 06/25/2018. INTERVAL HISTORY: This 82-year-old gentleman who was admitted with confusion or possible acute transient ischemic attack. The patient also had gait dysfunction. No chest pain. No palpitation. Carotid Doppler showed left internal carotid artery 50-70% stenosis. Vascular surgery to evaluate the patient. CT angio has been noted. No chest pain. No palpitations. No fever. PHYSICAL EXAM: Alert and oriented x3. Pulse is 75, blood pressure is 112/60, respiration 18, temperature 97.2, pulse ox 94% on 2 L. HEENT: Conjunctivae normal. Oral mucosa moist. NECK: No jugular venous distention. No carotid bruit. No lymph node enlargement. CARDIOVASCULAR: S1, S2 RESPIRATORY: Breath sounds diminished in the bases. No rhonchi, no crackles. ABDOMEN: Soft, nontender. LEGS: No edema. NERVOUS SYSTEM: Diffusely weak. LABS: WBC 7.7, hemoglobin 13.2, potassium 5.2, glucose noted. ASSESSMENT: 1. Confusion, change in mental status possible metabolic encephalopathy, possible acute transient ischemic attack. 2. Left internal carotid stenosis 50-70%. 3. Increased MCV. 4. Sinusitis. 5. History of multiple strokes previously, right parieto-occipital encephalomalacia and as well as left posterior frontal cortical infarct in the CT scan. 6. History of dementia. 7. Thrombocytopenia. 8. Diabetes mellitus type 2. 9. History of deep venous thrombosis. 10.History of gastroesophageal reflux disease. 11.Hypertension. 12.Hyperlipidemia. 13.History of degenerative joint disease. 14.History of pneumonia. 15.History of renal disease. 16.History of sleep apnea. 17.History of prostate cancer. RECOMMENDATIONS AND DISCUSSION: I recommend to continue current management and symptomatic treatment. Otherwise at this time, we will monitor. We will continue with antiplatelet agents, CTA. Continue the rest of the medications. Closely follow with multiple consultants. Further recommendations to follow. MMODL / IJN: [id number] /
--- NOTE | 2018-06-25 16:37 | CONS ---
CONSULTATION This is an 82-year-old gentleman, who has been admitted to [facility] with history off episode of confusion which lasted for 1 hour with complete recovery and he also noticed some numbness in the both lower extremities with some weakness. No evidence of any loss of vision. No history of any motor deficit. The patient had a stroke workup and CT of the brain was done which showed cortical infarct. All of which are old. Patient also had a ultrasound of the carotid which shows right side 50%, left side is 50-70%. The patient had an episode of dementia and also had some history of similar symptoms in the past. 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 PAST MEDICAL HISTORY: History of diabetes mellitus, dementia, hypertension, dyslipidemia. SURGICAL HISTORY: Patient had a knee surgery done and some bone surgery done in the past. PHYSICAL EXAMINATION: Patient was seen in his room. His vital signs are stable. NECK: Supple. No bruit appreciated. CHEST: Clear to auscultation. ABDOMEN: Soft. Vascular examination brachial radial femoral pulses are present. CENTRAL NERVOUS SYSTEM: the patient is oriented to time and place. Speech normal. Patient has normal motor function of the upper and lower extremity. IMPRESSION: 1. The patient with history of confusion and passing-out spells. 2. Ultrasound showed right carotid 50%, left side 50-70%. CT of the brain shows no infarct. RECOMMENDATIONS: The patient should be on antiplatelet therapy and statin. At this point, the patient has no evidence of any motor deficit from this episode. We will discuss with Neurology and Internal Medicine. Follow with you. Thank you very much for the consultation. MMODL / IJN: [id number] /
[2018-06-25 17:13] LABS: Glucose,Whole Blood 72 mg/dL (75-99)
--- NOTE | 2018-06-25 20:16 | CT ---
EXAMINATION TYPE: CT angio head neck DATE OF EXAM: 06/25/2018 HISTORY: Altered mental status COMPARISON: None CT DLP: 493.3 mGycm. Automated Exposure Control for Dose Reduction was Utilized. TECHNIQUE: CTA scan of the neck is performed with IV Contrast, patient injected with 60 mL of Isovue 370, axial images are obtained, coronal and sagittal reformatted images are reviewed. Three-D recons tructed images are created on an independent workstation and reviewed. FINDINGS: There is normal branching pattern of the great vessels on the aortic arch. There is arterial flow in both vertebral arteries which are fairly symmetric. There is arterial flow in the common internal and external carotid arteries bilaterally. There is plaque formation on the right side with approximatel y 25% stenosis of the proximal right internal carotid artery. On the left side there is significant plaque at the right carotid artery bifurcation with close to 90 % stenosis of the lumen of the proximal left internal carotid artery. There is no evidence of dissect ion. There is no evidence of carotid or vertebral artery aneurysm or dissection. There is arterial flow in the vertebrobasilar artery system. There is arterial flow in the anterior m iddle and posterior cerebral arteries. There is no evidence of aneurysm or neovascularity. There is n ormal contrast opacification of the venous sinuses. There is no mass effect. There is no evidence of intracranial arterial stenosis. IMPRESSION: No intracranial abnormality. There is more than 90% stenosis of the proximal left internal carotid artery due to plaque formation. There is approximate 25% stenosis proximal right internal carotid artery.
[2018-06-25] MEDS: ASPIRIN 81 MG PO SCH (20:21)
[2018-06-25] MEDS: CALCIUM CARB-VIT D 500MG-200UN 1 EACH TAB PO SCH (20:21)
[2018-06-25] MEDS: CARVEDILOL 12.5 MG TAB PO SCH (20:21)
[2018-06-25] MEDS: ATORVASTATIN 10 MG TAB PO SCH (20:21)
[2018-06-25 21:14] LABS: Glucose,Whole Blood 192 mg/dL (75-99)
[2018-06-25] MEDS: INSULIN DETEMIR 100 UNIT/ML 10 ML VIAL SQ SCH (21:20)
[2018-06-26] MEDS: AMPICILLIN-SULBACTAM 3 GM in SODIUM CHLORIDE 0.9% 100 ML IVPB SCH ×5 (00:31→23:45)
[2018-06-26 06:13] LABS: Glucose,Whole Blood 150 mg/dL (75-99)
[2018-06-26] MEDS: INSULIN ASPART 100 UNIT/ML 1 ML 10 ML VIAL SQ SCH ×7 (07:03→21:19)
[2018-06-26] MEDS: metFORMIN 500 MG TAB PO SCH (07:06)
[2018-06-26 07:34] LABS: Anisocytosis Slight; MCH 33.7 pg (25.0-35.0); MCHC 32.7 g/dL (31.0-37.0); MCV 103.1 fL (80.0-100.0); Macrocytosis Moderate; Mean Platelet Volume 8.7; Platelet Count 107 k/uL (150-450); RBC 4.16 m/uL (4.30-5.90); WBC 6.5 k/uL (3.8-10.6)
[2018-06-26 07:35] LABS: Calcium 9.5 mg/dL (8.4-10.2); Potassium 4.9 mmol/L (3.5-5.1)
[2018-06-26] MEDS: SYMBICORT 160-4.5 MCG INHALER INHALATION PRN (08:25)
[2018-06-26] MEDS: CARVEDILOL 6.25 MG TAB PO SCH (09:06)
[2018-06-26] MEDS: FLUoxetine HCL 20 MG CAP PO SCH (09:06)
[2018-06-26] MEDS: POTASSIUM CHLORIDE ER 20 MEQ TAB.ER PO SCH (09:06)
[2018-06-26] MEDS: FUROSEMIDE 40 MG TAB PO SCH (09:06)
[2018-06-26] MEDS: GABAPENTIN 300 MG CAP PO SCH (09:06)
[2018-06-26] MEDS: LISINOPRIL 2.5 MG TAB PO SCH (09:06)
[2018-06-26] MEDS: APIXABAN 5 MG TAB PO SCH ×2 (09:06→21:18)
[2018-06-26] MEDS: ALLOPURINOL 300 MG TAB PO SCH (09:06)
[2018-06-26 11:39] LABS: Eosinophils # (M) 0.13 k/uL (0-0.7); Lymphocytes # (M) 0.65 k/uL (1.0-4.8); Monocytes # (M) 0.91 k/uL (0-1.0); Neutrophils # (M) 4.81 k/uL (1.3-7.7); Neutrophils % (M) 74 %; Nucleated Red Blood Cells 0 /100 WBC (0-0); Total Cells Counted 100
[2018-06-26 12:11] LABS: Glucose,Whole Blood 157 mg/dL (75-99)
[2018-06-26] MEDS: MULTIVITAMINS, THERA 1 EACH TAB PO SCH (12:19)
--- NOTE | 2018-06-26 16:29 | PN ---
PROGRESS NOTE DATE OF SERVICE: 06/26/2018 This 82-year-old gentleman who was admitted with confusion, change in mental status, acute metabolic encephalopathy, is being closely monitored at this time. The patient also had carotid stenosis, more than 90% of the proximal left internal carotid artery and 25% stenosis of the right internal carotid artery and Dr. Khan is following the patient. No chest pain. No palpitations. No fever. PHYSICAL EXAM: Alert and oriented x3. Pulse 68, blood pressure 140/59, respiration 18, temperature 98.2, pulse ox 98% on 2 L. HEENT: Conjunctivae normal. NECK: No jugular venous distension. CARDIOVASCULAR SYSTEM: S1, S2, muffled. RESPIRATION: Breath sounds diminished at the bases, bilateral scattered rhonchi, no crackles. Abdomen is soft, nontender. LEGS: No edema, no swelling. NERVOUS SYSTEM: No focal deficits. LABS: WBC is 6.5, hemoglobin is 14. ASSESSMENT: 1. Confusion, change in mental status, metabolic disorder, possible acute transient ischemic attack. 2. Left carotid stenosis 90%. 3. Increased MCV. 4. Sinusitis. 5. History of multiple strokes, previously, right parieto-occipital encephalomalacia as well as left posterior frontal cortical infarct on the CAT scan. 6. History of dementia. 7. Thrombocytopenia. 8. Diabetes mellitus type 2. 9. History of deep venous thrombosis. 10.History of gastroesophageal reflux disease. 11.Hypertension. 12.Hyperlipidemia. 13.History of degenerative joint disease. 14.History of pneumonia. 15.History of renal disease. 16.History of sleep apnea. 17.History of prostate cancer. RECOMMENDATION: Recommend to continue with the current management, continue with the symptomatic treatment. At this time, we will continue to monitor. Guarded prognosis because of multiple complex medical issues. Further recommendations to follow. MMODL / IJN: [id number] /
--- NOTE | 2018-06-26 17:06 | P.PN ---
Subjective Progress Note Date: 06/26/18 Principal diagnosis: TIA Neurology is following an 82-year-old male for TIA. Patient was brought to the emergency room after becoming confused at home. Onset of occurrence was sudden and lasted approximately 1 hour. Patient also had some numbness and weakness in the bilateral lower extremities. No seizure-like activity was described, no loss of consciousness and no other neurological symptoms were described. Patient has a previous history of strokes and TIA. CT in the emergency room of the brain noted right parietal occipital encephalomalacia in left frontal lobe cortical infarct all of which were old. Chest x-ray was normal. Lipid panel noted elevated triglycerides. CBC was normal. Patient denies any recurrence of any neurological symptoms post arrival. On contact today, patient was alert and oriented 3, supine in bed resting in no acute distress with no family or visitors in the room. interval update 06/26/18: On contact, patient states that the acute symptoms have resolved per patient. He does have known residual symptoms including visual changes from previous CVA. Patient is requesting to go home as soon as possible. CT angiogram noted more than 90% stenosis of the proximal left internal carotid artery due to plaque. 25% stenosis of proximal right internal carotid artery. Vascular surgery has consulted on the patient. Objective - Vital Signs Vital signs: Vital Signs Temp 98.0 F 06/26/18 12:00 Pulse 71 06/26/18 12:00 Resp 18 06/26/18 12:00 BP 124/68 06/26/18 12:00 Pulse Ox 97 06/26/18 12:00 Intake & Output 06/25/18 06/26/18 06/26/18 18:59 06:59 18:59 Intake Total 716 100 Output Total 925 575 Balance -209 -575 100 Weight 119.5 kg Intake: Intake, IV Titration 100 Amount Ampicillin-Sulbactam 3 gm 100 In Sodium Chloride 0.9% 100 ml @ 100 mls/hr IVPB Q6HR [facility] Rx#:[id number] Oral 716 Output: Urine 925 575 Other: Voiding Method Urinal Urinal # Voids 1 2 - Exam General appearance: alert, oriented x3, no apparent distress Head: atraumatic, normocephalic Eyes: PERRLA, EOMI. 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 sensation: Unremarkable Psychological: mood and affect appropriate for setting - Labs CBC & Chem 7: 06/26/18 06:43 06/26/18 06:43 Labs: Abnormal Lab Results - Last 24 Hours (Table) 06/25/18 06/25/18 06/26/18 Range/Units 17:03 21:11 06:11 RBC (4.30-5.90) m/uL MCV (80.0-100.0) fL RDW (11.5-15.5) % Plt Count (150-450) k/uL Lymphocytes # (Manual) (1.0-4.8) k/uL BUN (9-20) mg/dL Glucose (74-99) mg/dL POC Glucose (mg/dL) 72 L 192 H 150 H (75-99) mg/dL 06/26/18 06/26/18 06/26/18 Range/Units 06:43 06:43 11:46 RBC 4.16 L (4.30-5.90) m/uL MCV 103.1 H (80.0-100.0) fL RDW 18.0 H (11.5-15.5) % Plt Count 107 L (150-450) k/uL Lymphocytes # (Manual) 0.65 L (1.0-4.8) k/uL BUN 36 H (9-20) mg/dL Glucose 132 H (74-99) mg/dL POC Glucose (mg/dL) 157 H (75-99) mg/dL Microbiology - Last 24 Hours (Table) 06/23/18 13:50 Blood Culture - Preliminary Blood No Growth after 72 hours Assessment and Plan (1) Altered mental status Current Visit: Yes Status: Acute Code(s): R41.82 - ALTERED MENTAL STATUS, UNSPECIFIED SNOMED Code(s): 380233867 (2) TIA (transient ischemic attack) Current Visit: Yes Status: Acute Code(s): G45.9 - TRANSIENT CEREBRAL ISCHEMIC ATTACK, UNSPECIFIED SNOMED Code(s): 616877666 (3) Weakness due to old stroke Current Visit: Yes Status: Acute Code(s): I69.998 - OTHER SEQUELAE FOLLOWING UNSPECIFIED CEREBROVASCULAR DISEASE; R53.1 - WEAKNESS SNOMED Code(s) : 521976276404436 Plan: 1. Altered mental status Altered mental status appears related to #2 below. Correct any other correctable underlying etiology defer to management by primary team. 2. TIA Based on patient's symptoms, resolution and patient's past medical history, is with reasonable medical certainty that the patient experienced transient ischemic attack. Patient did have carotid Doppler study which noted shadowing due to calcified plaque in both internal carotid arteries. Elevated velocity within the left ICA suggesting 50-70% stenosis. Right ICA noted up to 50% stenosis. Incomplete visualization of the carotid arteries. CT angiogram or MR angiogram recommended. patient CT angiogram noted 90% occlusion as noted. Vascular is on consult. Defer to vascular for further recommendations related to carotid stenosis. Continue neuro checks as ordered. Recommend long-term planning for placement rehabilitation facility. continue antiplatelet therapy as well as Lipitor 80 mg as noted in the outpatient setting. 3. History of ischemic stroke with secondary weakness Patient's imaging notes prior ischemic stroke. Patient does have noted weakness in extremities as noted in physical exam findingssee physical exam. Defer any secondary management to primary team. Consult PT recommended STATUS: patient be cleared from a neurological standpoint for placement and rehabilitation. I discussed the patients history, physical exam, diagnostic testing, lab work and imaging with Dr Patton prior to implementing the plan above. He agrees with the plan as implemented prior to implementation.
[2018-06-26 17:25] LABS: Glucose,Whole Blood 112 mg/dL (75-99)
[2018-06-26 20:10] LABS: Glucose,Whole Blood 203 mg/dL (75-99)
[2018-06-26] MEDS: CALCIUM CARB-VIT D 500MG-200UN 1 EACH TAB PO SCH (21:18)
[2018-06-26] MEDS: ASPIRIN 81 MG PO SCH (21:18)
[2018-06-26] MEDS: CARVEDILOL 12.5 MG TAB PO SCH (21:18)
[2018-06-26] MEDS: INSULIN DETEMIR 100 UNIT/ML 10 ML VIAL SQ SCH (21:19)
[2018-06-27] MEDS: AMPICILLIN-SULBACTAM 3 GM in SODIUM CHLORIDE 0.9% 100 ML IVPB SCH ×4 (06:01→23:42)
[2018-06-27] MEDS: SYMBICORT 160-4.5 MCG INHALER INHALATION PRN ×2 (07:02→19:03)
[2018-06-27 07:12] LABS: Glucose,Whole Blood 134 mg/dL (75-99)
[2018-06-27] MEDS: ALLOPURINOL 300 MG TAB PO SCH (07:14)
[2018-06-27] MEDS: metFORMIN 500 MG TAB PO SCH (07:14)
[2018-06-27] MEDS: APIXABAN 5 MG TAB PO SCH ×2 (07:15→21:15)
[2018-06-27] MEDS: ATORVASTATIN 80 MG TAB PO SCH (07:15)
[2018-06-27] MEDS: POTASSIUM CHLORIDE ER 20 MEQ TAB.ER PO SCH (07:16)
[2018-06-27] MEDS: GABAPENTIN 300 MG CAP PO SCH (07:16)
[2018-06-27] MEDS: FLUoxetine HCL 20 MG CAP PO SCH (07:16)
[2018-06-27] MEDS: FUROSEMIDE 40 MG TAB PO SCH (07:16)
[2018-06-27] MEDS: LISINOPRIL 2.5 MG TAB PO SCH (07:16)
[2018-06-27] MEDS: CARVEDILOL 6.25 MG TAB PO SCH (07:17)
[2018-06-27] MEDS: INSULIN ASPART 100 UNIT/ML 1 ML 10 ML VIAL SQ SCH ×7 (07:47→21:15)
[2018-06-27 09:56] LABS: Anisocytosis Slight; Basophils % (A) 0 %; Eosinophils # (A) 0.2 k/uL (0-0.7); Eosinophils % (A) 2 %; HCT 40.7 % (39.0-53.0); HGB 13.3 gm/dL (13.0-17.5); Lymphocytes # (A) 0.6 k/uL (1.0-4.8); Lymphocytes % (A) 9 %; MCH 32.9 pg (25.0-35.0); MCHC 32.6 g/dL (31.0-37.0); MCV 100.8 fL (80.0-100.0); Macrocytosis Slight; Mean Platelet Volume 9.4; Monocytes # (A) 0.4 k/uL (0-1.0); Monocytes % (A) 7 %; Neutrophils # (A) 5.1 k/uL (1.3-7.7); Neutrophils % (A) 79 %; Platelet Count 108 k/uL (150-450); RBC 4.03 m/uL (4.30-5.90); RDW 17.2 % (11.5-15.5); WBC 6.4 k/uL (3.8-10.6)
[2018-06-27 10:08] LABS: Calcium 9.6 mg/dL (8.4-10.2); Potassium 5.4 mmol/L (3.5-5.1)
[2018-06-27 11:24] LABS: Glucose,Whole Blood 156 mg/dL (75-99)
--- NOTE | 2018-06-27 13:39 | PN ---
PROGRESS NOTE DATE OF SERVICE: 06/27/2018 INTERVAL HISTORY: This 82-year-old gentleman who was admitted with confusion, change in mental status, metabolic encephalopathy, also had possibly acute transient ischemic attack. Also the patient is being closely monitored. Patient also had carotid stenosis also. The CT angiography of the neck showed 90% stenosis of the proximal LCA due to plaque formation and ECF rehab is being planned. No chest pain. No palpitations. EXAM: Alert and oriented times three. Pulse 70. Blood pressure is 109/68. Respirations 18. Temperature 97.9, pulse ox 94% on 2 L. HEENT: Conjunctivae normal. Neck no jugular venous distention. CARDIOVASCULAR: S1, S2 muffled. Respirations: Breath sounds diminished in the bases. No rhonchi. No crackles. Abdomen is soft, nontender. Legs are no edema, no swelling. LAB STUDIES: WBC 6.9, hemoglobin 13.2, sodium 130, potassium 5.4. ASSESSMENT: 1. Confusion, change in mental status, metabolic and possible acute transient ischemic attack. 2. Left carotid stenosis 90%. 3. Increased MCV. 4. Sinusitis. 5. History of multiple strokes previously, right parieto-occipital encephalomalacia as well as left posterior frontal cortical infarct on the CT scan. 6. History of dementia. 7. Thrombocytopenia. 8. Diabetes type 2. 9. History of deep vein thrombosis. 10.History of gastroesophageal reflux disease. 11.Hypertension. 12.Hyperlipidemia. 13.History of degenerative joint disease. 14.History of pneumonia. 15.History of renal disease. 16.History of sleep apnea. 17.History of prostate cancer. RECOMMENDATIONS AND DISCUSSION: Recommend to continue current medications, management and symptomatic treatment. Otherwise, at this time, I recommend to monitor closely. Possible ECF rehab. Closely follow with vascular surgery. Further recommendations to follow. MMODL / IJN: [id number] /
[2018-06-27] MEDS: MULTIVITAMINS, THERA 1 EACH TAB PO SCH (13:47)
[2018-06-27 16:41] LABS: Glucose,Whole Blood 127 mg/dL (75-99)
[2018-06-27 20:12] LABS: Glucose,Whole Blood 194 mg/dL (75-99)
[2018-06-27] MEDS: ASPIRIN 81 MG PO SCH (21:15)
[2018-06-27] MEDS: INSULIN DETEMIR 100 UNIT/ML 10 ML VIAL SQ SCH (21:15)
[2018-06-27] MEDS: CARVEDILOL 12.5 MG TAB PO SCH (21:15)
[2018-06-27] MEDS: CALCIUM CARB-VIT D 500MG-200UN 1 EACH TAB PO SCH (21:16)
[2018-06-28] MEDS: AMPICILLIN-SULBACTAM 3 GM in SODIUM CHLORIDE 0.9% 100 ML IVPB SCH ×4 (05:48→23:51)
[2018-06-28 07:11] LABS: Glucose,Whole Blood 163 mg/dL (75-99)
[2018-06-28] MEDS: SYMBICORT 160-4.5 MCG INHALER INHALATION PRN (07:16)
[2018-06-28] MEDS: INSULIN ASPART 100 UNIT/ML 1 ML 10 ML VIAL SQ SCH ×7 (08:42→21:00)
[2018-06-28] MEDS: FUROSEMIDE 40 MG TAB PO SCH (08:43)
[2018-06-28] MEDS: FLUoxetine HCL 20 MG CAP PO SCH (08:43)
[2018-06-28] MEDS: ALLOPURINOL 300 MG TAB PO SCH (08:43)
[2018-06-28] MEDS: metFORMIN 500 MG TAB PO SCH (08:43)
[2018-06-28] MEDS: LISINOPRIL 2.5 MG TAB PO SCH (08:44)
[2018-06-28] MEDS: CARVEDILOL 6.25 MG TAB PO SCH (08:44)
[2018-06-28] MEDS: GABAPENTIN 300 MG CAP PO SCH (08:44)
[2018-06-28] MEDS: APIXABAN 5 MG TAB PO SCH ×2 (08:44→21:00)
[2018-06-28] MEDS: POTASSIUM CHLORIDE ER 20 MEQ TAB.ER PO SCH (08:44)
[2018-06-28] MEDS: ATORVASTATIN 80 MG TAB PO SCH (08:44)
[2018-06-28 09:31] LABS: Anisocytosis Slight; Basophils % (A) 0 %; Eosinophils # (A) 0.2 k/uL (0-0.7); Eosinophils % (A) 2 %; HCT 42.1 % (39.0-53.0); HGB 13.6 gm/dL (13.0-17.5); Lymphocytes # (A) 0.6 k/uL (1.0-4.8); Lymphocytes % (A) 9 %; MCH 32.8 pg (25.0-35.0); MCHC 32.4 g/dL (31.0-37.0); MCV 101.5 fL (80.0-100.0); Macrocytosis Slight; Mean Platelet Volume 9.5; Monocytes # (A) 0.6 k/uL (0-1.0); Monocytes % (A) 8 %; Neutrophils # (A) 5.6 k/uL (1.3-7.7); Neutrophils % (A) 77 %; Platelet Count 113 k/uL (150-450); RBC 4.15 m/uL (4.30-5.90); RDW 17.1 % (11.5-15.5); WBC 7.2 k/uL (3.8-10.6)
[2018-06-28 09:40] LABS: Calcium 9.4 mg/dL (8.4-10.2); Potassium 5.2 mmol/L (3.5-5.1)
--- NOTE | 2018-06-28 10:26 | CDI ---
Last Revision, October 2017 Documentation Clarification Form Date: 06/28/2018 10:00:00 AM From: Kirti Gillespie RN, CCDS Admit Date: 06/24/2018 11:44:00 AM Patient Name: Andres Solis Visit Number: [id number] ATTENTION: The Clinical Documentation Specialists (CDI) and [facility] Coding Staff appreciate your assistance in clarifying documentation. Please respond to the clarification below the line at the bottom and electronically sign. The CDI & [facility] Coding staff will review the response and follow-up if needed. Please note: Queries are made part of the Legal Health Record. If you have any questions, please contact the author of this message via ITS. Dr. Ottoniel Corado History of renal disease is documented your H&P and Progress Notes and requires further specificity. History/Risk Factors: Renal disease, prostate ca, dm, gerd, hyperlipidemia, htn, oa, pneumonia, JUDY Clinical Indicators: Current BUN: 36/30/29/36 CR: .95/.92/1.03/1.16 GFR: 76/78/69/60 3/18 Patients Baseline: BUN/CR/GFR: 48/1.3/52 Treatment: Patients medications include: IVF: 0.9% NS @ 20 cc/hr Lasix 40 mg PO QD In order to capture the severity of condition, please clarify if the condition signifies: CKD Stage 1 (GFR > 90) CKD Stage 2 (GFR 60-89) CKD Stage 3 (GFR 30-59) CKD Stage 4 (GFR 15-29) CKD Stage 5 (GFR <15) ESRD Other, please specify Unable to determine Please continue to document in your progress notes and discharge summary in order to capture severity of illness and risk of mortality. Include clinical findings that support your diagnosis. CKD Stage 3 (GFR 30-59) MTDD
--- NOTE | 2018-06-28 10:52 | PN ---
PROGRESS NOTE This is an 82-year-old gentleman who has been admitted to [facility] with history of passing-out spell. Patient history of dementia, history of diabetes mellitus, history of chronic DVT, history of hypertension, history of hyperlipidemia, history of sleep apnea. He has been followed at the [facility]. He has been admitted for workup. The patient had a CT of the brain. There was no bleeding or infarct. The patient had ultrasound of the carotid, left carotid peak systolic velocity is 27.4 and internal carotid to common carotid ratio is 2. The patient had a CT of the carotids done suggestive of left side is 90% and right side is less than 40, comparing both result with ultrasound and CT there is a lot of difference. The patient has no history of any motor deficit. I have discussed with Dr. Corado. This is a conflicting report with ultrasound and CT of the carotid, we would like to do a arch study. The patient will be seen by me next week in the office. Continue with antiplatelet therapy and we will arrange as an outpatient. MMEDIEL / IJN: [id number] /
[2018-06-28 11:27] LABS: Glucose,Whole Blood 222 mg/dL (75-99)
--- NOTE | 2018-06-28 11:59 | P.DS ---
Providers Date of admission: 06/24/18 11:44 Attending physician: Ottoniel Corado Consults: 06/24/18 12:54 Consult Physician Routine Consulting Provider: Felix Patton Consult Reason/Comments: cva Do you want consulting provider notified?: Yes 06/25/18 12:37 Consult Physician Routine Consulting Provider: Antelmo Khan Consult Reason/Comments: carotid stenosis Do you want consulting provider notified?: Yes Primary care physician: [facility] Hospital Course: Final diagnosis Confusion and change in mental status possible acute TIA. Carotid stenosis 60-90% Increased MCV Sinusitis History multiple strokes previously with the right parieto-occipital encephalomalacia and left posterior frontal cortical infarct in the CAT scan. History dementia thrombocytopenia Diabetes was type II History of DVT GERD Hypertension Hyperlipidemia DJD History of pneumonia Renal disease sleep apnea Prostate cancer History of present illness This 10-year-old gentleman with a past medical history multiple medical problems as mentioned earlier was admitted with confusion and change in mental status and features of TIA. Patient had carotid stenosis. Patient treated symptomatically. Patient was eval by CTA and ultrasound. Dr. Khan saw the patient would recommend the outpatient evaluation. Neurology saw the patient. PTOT evaluate the patient. Patient be discharged in a stable condition with guarded prognosis with the following of his medications. Total time taken 35 minutes. On exam vitals stable. Cardio S1 and S2 normal. Respiratory system clear to oscillation. Abdomen soft nontender. Nervous system system diffusely weak. Plan - Discharge Summary Discharge Rx Participant: No New Discharge Prescriptions: New Amoxic-Pot Clav 875-125Mg [Augmentin 875-125] 1 tab PO Q12HR #8 tablet Atorvastatin [Lipitor] 80 mg PO DAILY tab INSULIN LISPRO (HumaLOG) [humaLOG] 0 unit SQ ACHS #1 vial Continue Multivitamin [Men's Multi-Vitamin] 1 tab PO DAILY Calcium Carbonate/Vitamin D3 [Calcium 600-Vit D3 400 Tablet] 1 tab PO HS Allopurinol 300 mg PO DAILY Tiotropium 18 Mcg/Puff [Spiriva] 1 puff INHALATION RT-DAILY Albuterol Nebulized [Ventolin Nebulized] 2.5 mg INHALATION RT-QID PRN PRN Reason: Shortness Of Breath Insulin Detemir [Levemir Flextouch] 40 unit SQ HS Budesonide-Formot 160-4.5 Mcg [Symbicort 160-4.5 Mcg Inhaler] 2 puff INHALATION RT-BID PRN PRN Reason: Shortness Of Breath Insulin Lispro [humaLOG Kwikpen] 14 unit SQ AC-TID Colchicine 0.6 mg PO DAILY PRN PRN Reason: GOUT Furosemide [Lasix] 40 mg PO DAILY Carvedilol [Coreg] 6.25 mg PO QAM metFORMIN HCL 1,000 mg PO DAILY FLUoxetine HCL [PROzac] 40 mg PO DAILY Potassium Chloride [Klor-Con 20] 20 meq PO DAILY Lisinopril [Zestril] 2.5 mg PO DAILY Apixaban [Eliquis] 5 mg PO BID Carvedilol [Coreg] 12.5 mg PO HS Gabapentin [Neurontin] 300 mg PO DAILY [place]-3 Fatty Acids [[place]-3] 1,000 mg PO HS Aspirin EC [Ecotrin Low Dose] 81 mg PO HS Changed Ipratropium Nebulized [Atrovent Nebulized] 0.5 mg INHALATION TID #1 Discontinued Atorvastatin Calcium [Lipitor] 10 mg PO HS Discharge Medication List Allopurinol 300 mg PO DAILY 02/08/15 [History] Calcium Carbonate/Vitamin D3 [Calcium 600-Vit D3 400 Tablet] 1 tab PO HS [History] Multivitamin [Men's Multi-Vitamin] 1 tab PO DAILY 02/08/15 [History] Tiotropium 18 Mcg/Puff [Spiriva] 1 puff INHALATION RT-DAILY 12/25/15 [History] Albuterol Nebulized [Ventolin Nebulized] 2.5 mg INHALATION RT-QID PRN 02/10/18 [ History] Budesonide-Formot 160-4.5 Mcg [Symbicort 160-4.5 Mcg Inhaler] 2 puff INHALATION RT-BID PRN 02/10/18 [History] Carvedilol [Coreg] 6.25 mg PO QAM 02/10/18 [History] Colchicine 0.6 mg PO DAILY PRN 02/10/18 [History] FLUoxetine HCL [PROzac] 40 mg PO DAILY 02/10/18 [History] Furosemide [Lasix] 40 mg PO DAILY 02/10/18 [History] Insulin Detemir [Levemir Flextouch] 40 unit SQ HS 02/10/18 [History] Insulin Lispro [humaLOG Kwikpen] 14 unit SQ AC-TID 02/10/18 [History] Lisinopril [Zestril] 2.5 mg PO DAILY 02/10/18 [History] Potassium Chloride [Klor-Con 20] 20 meq PO DAILY 02/10/18 [History] metFORMIN HCL 1,000 mg PO DAILY 02/10/18 [History] Apixaban [Eliquis] 5 mg PO BID 06/23/18 [History] Aspirin EC [Ecotrin Low Dose] 81 mg PO HS 06/23/18 [History] Carvedilol [Coreg] 12.5 mg PO HS 06/23/18 [History] Gabapentin [Neurontin] 300 mg PO DAILY 06/23/18 [History] [place]-3 Fatty Acids [[place]-3] 1,000 mg PO HS 06/23/18 [History] Amoxic-Pot Clav 875-125Mg [Augmentin 875-125] 1 tab PO Q12HR #8 tablet 06/28/18 [Rx] Atorvastatin [Lipitor] 80 mg PO DAILY tab 06/28/18 [Rx] INSULIN LISPRO (HumaLOG) [humaLOG] 0 unit SQ ACHS #1 vial 06/28/18 [Rx] Ipratropium Nebulized [Atrovent Nebulized] 0.5 mg INHALATION TID #1 06/28/18 [Rx ] Follow up Appointment(s)/Referral(s): Felix Patton MD [STAFF PHYSICIAN] - 2 Weeks [facility] [Primary Care Provider] - 2 Weeks ([phone] Spoke to spa receptionist. Office will call you with an appointment time) Antelmo Khan MD [STAFF PHYSICIAN] - 1 Week Activity/Diet/Wound Care/Special Instructions: [facility] for rehab on discharge. Diet cardiac Activity as tolerated
[2018-06-28] MEDS: MULTIVITAMINS, THERA 1 EACH TAB PO SCH (12:19)
--- NOTE | 2018-06-28 14:43 | EEG ---
ELECTROENCEPHALOGRAM REPORT DATE OF SERVICE: 06/25/2018. REASON FOR TESTING: Altered mental status. DESCRIPTION OF THE PROCEDURE: This EEG was performed using a 21 channel digital electroencephalograph, following international 10-20 system. DESCRIPTION OF THE RECORDING: From the beginning of the tracing, and with patient's eyes closed, the background rhythm was mostly consisting of 8-9 Hz alpha frequency in the posterior occipital leads. No obvious asymmetry is seen. Photic stimulation was performed with no driving response seen. No pathological waves were elicited. Frequent muscle artifacts are seen. The patient remains awake throughout the tracing. No epileptiform discharges were seen. His EKG lead showed a regular rate and rhythm. INTERPRETATION: This awake EEG can be considered within normal limits. There is no asymmetry seen. No epileptiform discharges were noticed. The absence of epileptiform discharges does not rule out the diagnosis of epilepsy; therefore clinical correlation is recommended. MMMATT / ELLIS: [id number] /
[2018-06-28 16:57] LABS: Glucose,Whole Blood 130 mg/dL (75-99)
[2018-06-28 20:17] LABS: Glucose,Whole Blood 138 mg/dL (75-99)
[2018-06-28] MEDS: ASPIRIN 81 MG PO SCH (21:00)
[2018-06-28] MEDS: CALCIUM CARB-VIT D 500MG-200UN 1 EACH TAB PO SCH (21:00)
[2018-06-28] MEDS: CARVEDILOL 12.5 MG TAB PO SCH (21:00)
[2018-06-28] MEDS: INSULIN DETEMIR 100 UNIT/ML 10 ML VIAL SQ SCH (21:01)
[2018-06-29 05:39] VITALS: BP 101/63; PULSE 65; RESP 17; TEMP 97.1
[2018-06-29] MEDS: AMPICILLIN-SULBACTAM 3 GM in SODIUM CHLORIDE 0.9% 100 ML IVPB SCH (05:48)
[2018-06-29 07:16] LABS: Glucose,Whole Blood 145 mg/dL (75-99)
[2018-06-29] MEDS: INSULIN ASPART 100 UNIT/ML 1 ML 10 ML VIAL SQ SCH ×2 (07:56→07:57)
[2018-06-29] MEDS: GABAPENTIN 300 MG CAP PO SCH (07:58)
[2018-06-29] MEDS: LISINOPRIL 2.5 MG TAB PO SCH (07:58)
[2018-06-29] MEDS: ATORVASTATIN 80 MG TAB PO SCH (07:58)
[2018-06-29] MEDS: MULTIVITAMINS, THERA 1 EACH TAB PO SCH (07:59)
[2018-06-29] MEDS: FUROSEMIDE 40 MG TAB PO SCH (07:59)
[2018-06-29] MEDS: FLUoxetine HCL 20 MG CAP PO SCH (07:59)
[2018-06-29] MEDS: POTASSIUM CHLORIDE ER 20 MEQ TAB.ER PO SCH (07:59)
[2018-06-29] MEDS: APIXABAN 5 MG TAB PO SCH (07:59)
[2018-06-29 08:00] LABS: Anisocytosis Slight; Basophils % (A) 0 %; Eosinophils # (A) 0.2 k/uL (0-0.7); Eosinophils % (A) 3 %; HCT 39.6 % (39.0-53.0); HGB 12.8 gm/dL (13.0-17.5); Lymphocytes # (A) 0.7 k/uL (1.0-4.8); Lymphocytes % (A) 10 %; MCH 32.6 pg (25.0-35.0); MCHC 32.3 g/dL (31.0-37.0); MCV 100.9 fL (80.0-100.0); Macrocytosis Slight; Mean Platelet Volume 9.1; Monocytes # (A) 0.5 k/uL (0-1.0); Monocytes % (A) 8 %; Neutrophils # (A) 5.2 k/uL (1.3-7.7); Neutrophils % (A) 76 %; Platelet Count 101 k/uL (150-450); RBC 3.93 m/uL (4.30-5.90); WBC 6.8 k/uL (3.8-10.6)
[2018-06-29] MEDS: metFORMIN 500 MG TAB PO SCH (08:00)
[2018-06-29] MEDS: ALLOPURINOL 300 MG TAB PO SCH (08:00)
[2018-06-29] MEDS: CARVEDILOL 6.25 MG TAB PO SCH (08:00)
[2018-06-29 08:25] LABS: Calcium 9.7 mg/dL (8.4-10.2)
[2018-06-29 08:32] LABS: Potassium 4.8 mmol/L (3.5-5.1)
--- NOTE | 2018-06-29 14:05 | PN ---
PROGRESS NOTE DATE OF SERVICE: 06/28/2018 This is an 82-year-old gentleman who was admitted with confusion, TIA, is being closely monitored. The PT, OT evaluated the patient for ECF rehab. No chest pain. No palpitations. No fever. PHYSICAL EXAM: Alert and oriented x3. Pulse 71, blood pressure 130/66, respirations 6, temperature 97.4, pulse ox 98% on 2 L. HEENT: Conjunctivae normal. NECK: No jugular venous distension. CARDIOVASCULAR SYSTEM: S1, S2, muffled. RESPIRATORY: Breath sounds diminished at the bases, no rhonchi, no crackles. ABDOMEN: Soft. LEGS: No edema, no swelling. NERVOUS SYSTEM: Diffusely weak. LABS: Noted. ASSESSMENT: 1. Confusion, change in mental status, with possible acute transient ischemic attack. 2. Left carotid stenosis 90%. 3. Increased MCV. 4. Sinusitis. 5. History of multiple strokes previously with right parieto-occipital encephalomalacia and as well as left posterior frontal cortical infarct. 6. Gait dysfunction. 7. Dementia. 8. Multiple medical problems. RECOMMENDATION: Recommend to continue current management and symptomatic treatment. Otherwise, will follow closely with PT, OT evaluation, possible ECF rehab. Guarded prognosis. Further recommendations to follow. MMODL / IJN: [id number] /
--- NOTE | 2018-06-29 16:17 | DS ---
DISCHARGE SUMMARY ADDENDUM: DATE OF SERVICE: 06/29/2018 This 82-year-old gentleman was admitted with confusion, lethargy, TIA, also had a carotid stenosis. Patient had bilateral cortical lesions also. The patient is slated to have ECF rehab at this time. The patient will be discharged in stable condition with guarded prognosis. Please refer to the previous dictation for details. Total time taken [address] Khan has recommended outpatient followup in 1-2 weeks for evaluation of the carotid stenosis. On exam vitals are stable. Cardio s1 s2 normal. Resp system. clear to auscultation. NS. diffusely weak. MMODL / IJN: [id number] / MTDD
== END 2018-06-29 10:46 | DRG 67 ==
LOC: EC 11:41 → 6SEL 14:36 → OBSVTOIN 06-24 11:44 → 5MS5E 06-26 20:01
PROVIDERS: ADMIT Hospitalist; ATTEND Hospitalist
DX: I65.22 Occlusion and stenosis of left carotid artery (principal); G93.41 Metabolic encephalopathy; K21.9 Gastro-esophageal reflux disease without esophagitis; M19.90 Unspecified osteoarthritis, unspecified site; I12.9 Hypertensive chronic kidney disease with stage 1 through stage 4 chronic kidney disease, or unspecified chronic kidney disease; E11.22 Type 2 diabetes mellitus with diabetic chronic kidney disease; N18.3 Chronic kidney disease, stage 3 (moderate); Z79.4 Long term (current) use of insulin; Z79.01 Long term (current) use of anticoagulants; Z79.51 Long term (current) use of inhaled steroids; Z82.49 Family history of ischemic heart disease and other diseases of the circulatory system; Z83.3 Family history of diabetes mellitus; I69.398 Other sequelae of cerebral infarction; R53.1 Weakness; G93.89 Other specified disorders of brain; G47.30 Sleep apnea, unspecified; D69.6 Thrombocytopenia, unspecified; E78.1 Pure hyperglyceridemia; E78.5 Hyperlipidemia, unspecified; F03.90 Unspecified dementia, unspecified severity, without behavioral disturbance, psychotic disturbance, mood disturbance, and anxiety; Z85.46 Personal history of malignant neoplasm of prostate; Z85.72 Personal history of non-Hodgkin lymphomas; Z86.711 Personal history of pulmonary embolism; Z86.718 Personal history of other venous thrombosis and embolism; Z87.01 Personal history of pneumonia (recurrent); Z87.11 Personal history of peptic ulcer disease; Z85.828 Personal history of other malignant neoplasm of skin; Z87.891 Personal history of nicotine dependence; R55 Syncope and collapse; R26.9 Unspecified abnormalities of gait and mobility; J32.9 Chronic sinusitis, unspecified; E66.9 Obesity, unspecified; Z68.35 Body mass index [BMI] 35.0-35.9, adult
CPT/HCPCS: 36415; 70450; 70496; 70498; 71046; 80048; 80053; 80061; 80306; 81003; 82550; 82553; 83036; 83090; 84484; 85025; 85610; 85730; 87040; 93005; 93880; 94640; 95816; 96365; 99285

== ENCOUNTER 2018-08-25 00:13 | Inpatient (IN) | payer MEDICARE ==
[2018-08-25 02:53] LABS: Glucose,Whole Blood 221 mg/dL (75-99)
[2018-08-25] MEDS ORDERED: IPRATROPIUM-ALBUTEROL 3 ML NEB INHALATION PRN (04:00)
[2018-08-25 05:59] LABS: Anisocytosis Slight; Basophils % (A) 0 %; Eosinophils # (A) 0.1 k/uL (0-0.7); Eosinophils % (A) 1 %; HCT 40.4 % (39.0-53.0); HGB 12.8 gm/dL (13.0-17.5); Lymphocytes # (A) 0.8 k/uL (1.0-4.8); Lymphocytes % (A) 4 %; MCH 33.6 pg (25.0-35.0); MCHC 31.7 g/dL (31.0-37.0); MCV 105.8 fL (80.0-100.0); Mean Platelet Volume 8.6; Monocytes % (A) 6 %; Neutrophils # (A) 15.5 k/uL (1.3-7.7); Neutrophils % (A) 88 %; Platelet Count 133 k/uL (150-450); RBC 3.82 m/uL (4.30-5.90); RDW 17.7 % (11.5-15.5); WBC 17.7 k/uL (3.8-10.6)
[2018-08-25 06:09] LABS: Calcium 8.5 mg/dL (8.4-10.2); Magnesium 1.5 mg/dL (1.6-2.3); Potassium 4.9 mmol/L (3.5-5.1)
[2018-08-25 06:26] LABS: Glucose,Whole Blood 227 mg/dL (75-99)
[2018-08-25 06:27] LABS: Macrocytosis Marked
[2018-08-25] MEDS: INSULIN ASPART 100 UNIT/ML 1 ML 10 ML VIAL SQ SCH ×7 (07:04→21:45)
--- NOTE | 2018-08-25 07:13 | XR ---
EXAMINATION TYPE: XR chest 1V portable DATE OF EXAM: 08/25/2018 HISTORY: Shortness of breath. COMPARISON: 06/23/2018 TECHNIQUE: Single view of the chest is submitted. FINDINGS: Demonstrated are scattered senescent parenchymal change. Patchy basilar infiltrates are noted. The heart is stable. Hilar and mediastinal structures are within normal limits. Degenerative changes are seen of the dorsal spine. IMPRESSION: 1. Chronic changes without evidence for acute pulmonary disease.
[2018-08-25] MEDS ORDERED: CARVEDILOL 6.25 MG TAB PO SCH (07:30)
[2018-08-25] MEDS: IPRATROPIUM-ALBUTEROL 3 ML NEB INHALATION SCH ×4 (08:20→20:14)
[2018-08-25] MEDS: FUROSEMIDE 10 MG/ML 4 ML VIAL IV SCH (09:05)
[2018-08-25] MEDS: PIPERACILLIN-TAZOBACTAM 3.375 GM in DEXTROSE/WATER 1 50ML.BAG IVPB SCH ×3 (09:05→23:40)
--- NOTE | 2018-08-25 11:31 | P.CNPUL ---
History of Present Illness Consult date: 08/25/18 Reason for consult: dyspnea, cough, pneumonia, abnormal CXR/CT Chief complaint: Cough phlegm production and body aches. History of present illness: Pulmonary consult dated 08/25/2018 This is an 82-year-old male who recently has resided at a rehab facility in [place] who was then transferred to [facility] because of body aches and also because of cough and phlegm production. A chest x-ray revealed what was thought to be bilateral infiltrates and he was admitted with a diagnosis of pneumonia. He apparently does have a history of underlying COPD. For that he usually takes Symbicort as well as Spiriva and also updrafts. In addition, he has a history of hyperlipidemia diabetes hypertension atrial fibrillation and gout. Not much is known about this patient's past history as her so paperwork with the patient. In addition, the primary service has not seen the patient as yet. The patient states that he was not having any fever or chills. The cough phlegm he was coughing up was pretty much mostly white. He denies coughing up any blood. The chest x-ray done on August 25 when compared to chest x-ray done 06/23/2018 apparently shows chronic changes without evidence for acute pulmonary disease. The patient was seen by my partner back in 2014 for an acute CVA involving the right parieto-occipital lobe consistent with posterior cerebral artery distribution. In addition, he had a history of new onset seizures syncope ventilator dependent respiratory failure sleep apnea diabetes DVT hypertension and number of other comorbidities. He apparently has not been seen by our team since. He does also have a history of prostate cancer and sleep apnea syndrome as well as lymphoma. His medical history is quite extensive. He is a former smoker. Review of Systems A 14 point review of system is positive for cough with white phlegm production as well as body aches. No fever or chills or hemoptysis. No chest pain chest discomfort. The symptoms have been present for about 2-3 days. Past Medical History Past Medical History: Cancer, CVA/TIA, Dementia, Diabetes Mellitus, Deep Vein Thrombosis (DVT), GERD/Reflux, Hyperlipidemia, Hypertension, Osteoarthritis (OA) , Pneumonia, Renal Disease, Sleep Apnea/CPAP/BIPAP Additional Past Medical History / Comment(s): HX: CVAs- X 3 with R and L sided weakness- L leg is the worse, DM type II 2006, CKD, sleep apnea/CPAP; prostate CA 2006-tx with seed implants and radiation, lymphoma-tx with chemo, arthiritis, chronic back pain, duodenal ulcer, gastritis, divericulosis, hemorrhoid, gout, L leg cellulitis, tendonitis R wrist, numbness and tingling to hands and feet bilaterally. History of Any Multi-Drug Resistant Organisms: None Reported Past Surgical History: Orthopedic Surgery Additional Past Surgical History / Comment(s): both shoulders- L shoulder rotator cuff repair and R shoulder arthroscopy, L leg fib/tib fx with pinns and screws, plate to R arm, prostate seed implants x 2, R arm B-cell lymphoma removed , circumcision, EGD and colonoscopy Past Anesthesia/Blood Transfusion Reactions: No Reported Reaction Past Psychological History: No Psychological Hx Reported Additional Psychological History / Comment(s): Pt lives at home with his . Pt wheelchairbound. Pt has hospital bed. Pt no longer drives. Pt has home care - [facility] , who comes in and helps pt with ADLs and also does some housework. Smoking Status: Former smoker Past Alcohol Use History: None Reported Past Drug Use History: None Reported Additional Drug Use History / Comment(s): pt quit smoking 50 years ago - Past Family History Father Family Medical History: Hypertension Mother Family Medical History: Diabetes Mellitus Medications and Allergies Home Medications Medication Instructions Recorded Confirmed Type Allopurinol 300 mg PO DAILY 02/08/15 08/25/18 History Calcium Carbonate/Vitamin D3 1 tab PO HS 02/08/15 08/25/18 History [Calcium 600-Vit D3 400 Tablet] Multivitamin [Men's Multi-Vitamin] 1 tab PO DAILY 02/08/15 08/25/18 History Tiotropium 18 Mcg/Puff [Spiriva] 1 puff INHALATION RT-DAILY 12/25/15 08/25/18 History Albuterol Nebulized [Ventolin 2.5 mg INHALATION RT-QID 02/10/18 08/25/18 History Nebulized] Budesonide-Formot 160-4.5 Mcg 2 puff INHALATION RT-BID 02/10/18 08/25/18 History [Symbicort 160-4.5 Mcg Inhaler] Carvedilol [Coreg] 6.25 mg PO QAM 02/10/18 08/25/18 History Colchicine 0.6 mg PO DAILY PRN 02/10/18 08/25/18 History FLUoxetine HCL [PROzac] 40 mg PO DAILY 02/10/18 08/25/18 History Furosemide [Lasix] 40 mg PO BID 02/10/18 08/25/18 History Insulin Detemir [Levemir Flextouch] 50 unit SQ HS 02/10/18 08/25/18 History Insulin Lispro [humaLOG Kwikpen] 16 unit SQ AC-TID 02/10/18 08/25/18 History Lisinopril [Zestril] 2.5 mg PO DAILY 02/10/18 08/25/18 History Potassium Chloride [Klor-Con 20] 20 meq PO DAILY 02/10/18 08/25/18 History metFORMIN HCL 1,000 mg PO DAILY 02/10/18 08/25/18 History Apixaban [Eliquis] 5 mg PO BID 06/23/18 08/25/18 History Aspirin EC [Ecotrin Low Dose] 81 mg PO HS 06/23/18 08/25/18 History Carvedilol [Coreg] 12.5 mg PO HS 06/23/18 08/25/18 History Gabapentin [Neurontin] 300 mg PO BID 06/23/18 08/25/18 History [place]-3 Fatty Acids [[place]-3] 1,000 mg PO HS 06/23/18 08/25/18 History INSULIN LISPRO (HumaLOG) [humaLOG] See Protocol SQ ACHS 08/25/18 08/25/18 History Ipratropium Nebulized [Atrovent 0.5 mg INHALATION RT-TID 08/25/18 08/25/18 History Nebulized] Pravastatin Sodium [Pravachol] 20 mg PO HS 08/25/18 08/25/18 History Allergies Allergy/AdvReac Type Severity Reaction Status Date / Time No Known Allergies Allergy Verified 08/25/18 08:54 Physical Exam Osteopathic Statement: *. No significant issues noted on an osteopathic structural exam other than those noted in the History and Physical/Consult. Vitals: Vital Signs Temp Pulse Pulse Pulse Resp BP Pulse Ox 08/25/18 08:35 80 08/25/18 08:21 78 08/25/18 08:00 98.8 F 86 20 99/50 93 L 08/25/18 04:00 99.5 F 83 18 89/55 94 L 08/25/18 02:13 97.8 F 93 18 100/60 92 L Intake and Output 08/24/18 08/25/18 08/25/18 22:59 06:59 14:59 Output Total 125 Balance -125 Output: Urine 125 Other: Voiding Method Urinal Urinal # Voids 1 Weight 109 kg No acute distress, oriented 3. The patient is requiring supplemental oxygen. HEENT examination is grossly unremarkable. Mucous membranes are moist. No oral lesions. Neck supple. Full range of motion. No adenopathy thyromegaly or neck vein distention. Cardiovascular examination reveals regular rhythm rate. S1-S2 normal. No S3 or S4. No discernible murmur noted. Heart rate is 70 bpm. Lungs reveal mild occasional rhonchi. A few scattered crackles. There are no wheezes. Breath sounds equal bilaterally. Abdomen soft bowel sounds are heard. No masses or tenderness. Extremities are intact. No cyanosis clubbing or edema. Skin is without rash or lesion. Neurologic examination is brief but nonfocal. Results - Laboratory Findings CBC and BMP: 08/25/18 05:42 08/25/18 05:42 Abnormal lab findings: Abnormal Labs 08/25/18 08/25/18 08/25/18 02:51 05:42 05:42 WBC 17.7 H RBC 3.82 L Hgb 12.8 L MCV 105.8 H RDW 17.7 H Plt Count 133 L Neutrophils # 15.5 H Lymphocytes # 0.8 L BUN 33 H Creatinine 1.28 H Glucose 209 H POC Glucose (mg/dL) 221 H Magnesium 1.5 L 08/25/18 06:24 WBC RBC Hgb MCV RDW Plt Count Neutrophils # Lymphocytes # BUN Creatinine Glucose POC Glucose (mg/dL) 227 H Magnesium - Diagnostic Findings Chest x-ray: report reviewed (Chest x-ray labs and medications are reviewed.), image reviewed Assessment and Plan Assessment: Assessment Cough with phlegm production, and the patient was an unchanged chest x-ray, most consistent with purulent tracheobronchitis reactive bronchospasm and bronchial inflammation. Probable COPD from previous tobacco use History of CVA History of prostate cancer History of dementia Diabetes mellitus History of DVT History of gastroesophageal reflux disease History of hyperlipidemia History of hypertension History of DJD History of sleep apnea syndrome History of skin cancer History of lymphoma Plan: Plan dated 08/25/2018 The patient's labs x-rays a medications are all reviewed. The patient's chest x -ray was compared to the previous x-ray done in May of this year. Apparently there is no change. Labs will be reviewed. Medications are reviewed. The patient was placed on appropriate bronchodilators and antibiotics. He also may benefit from a short course of steroids. Additional recommendations and suggestions are forthcoming. Prognosis is guarded. Time with Patient: Greater than 30
--- NOTE | 2018-08-25 11:43 | ECHOF ---
Referral Reason: MEASUREMENTS -------- HEIGHT: 182.9 cm WEIGHT: 111.6 kg BP: RVIDd: 3.3 cm (< 3.3) IVSd: 1.5 cm (0.6 - 1.1) LVIDd: 2.2 cm (3.9 - 5.3) LVPWd: 1.7 cm (0.6 - 1.1) IVSs: 1.7 cm LVIDs: 1.7 cm LVPWs: 2.0 cm Ao Diam: 3.3 cm (2.0 - 3.7) AV Cusp: 1.5 cm (1.5 - 2.6) LA Diam: 2.7 cm (2.7 - 3.8) MV EXCURSION: 7.419 mm (> 18.000) MV EF SLOPE: 42 mm/s (70 - 150) EPSS: 1.2 cm MV E Stefano: 0.98 m/s MV DecT: 262 ms MV A Stefano: 1.34 m/s MV E/A Ratio: 0.73 RAP: 5.00 mmHg RVSP: 11.86 mmHg FINDINGS -------- Sinus rhythm. This was a technically difficult study with suboptimal views. The left ventricular size is normal. There is moderate concentric left ventricular hypertrophy. O verall left ventricular systolic function is normal with, an EF between 55 - 60 %. The right ventricle is mildly enlarged. The left atrium is normal in size. The right atrium is normal in size. Lumason used The aortic valve is trileaflet and appears structurally normal. There is trace mitral regurgitation. Trace tricuspid regurgitation present. The right ventricular systolic pressure, as measured by Dopp ler, is 11.86mmHg. Pulmonic valve appears structurally normal. The aortic root size is normal. The pericardium is normal. CONCLUSIONS -------- 1. Sinus rhythm. 2. This was a technically difficult study with suboptimal views. 3. The left ventricular size is normal. 4. There is moderate concentric left ventricular hypertrophy. 5. Overall left ventricular systolic function is normal with, an EF between 55 - 60 %. 6. The right ventricle is mildly enlarged. 7. The left atrium is normal in size. 8. The right atrium is normal in size. 9. Lumason used 10. The aortic valve is trileaflet and appears structurally normal. 11. There is trace mitral regurgitation. 12. Trace tricuspid regurgitation present. 13. The right ventricular systolic pressure, as measured by Doppler, is 11.86mmHg. 14. Pulmonic valve appears structurally normal. 15. The aortic root size is normal. 16. The pericardium is normal. SEAFOOD HARVESTER: Shannan Mullins RDCS
[2018-08-25 11:59] LABS: Glucose,Whole Blood 257 mg/dL (75-99)
--- NOTE | 2018-08-25 12:58 | P.HPIM ---
History of Present Illness This is a pleasant 82 years old male with past medical history of CVA/TIA, dementia, diabetes mellitus, deep venous thrombosis, GERD, hyperlipidemia, hypertension, osteoarthritis , With residual left-sided hemiplegia. History of lymphoma status post chemotherapy. Chronic back pain. Colitis. Gastritis. Hemorrhoids. Gout. Was transferred from [facility] for possible pneumonia. However when the chest x-ray reviewed by the electron gun inspector that shows chronic changes, which is the same per radiology report. Patient telling me he went from rehab to [facility] because he has pain all over his body. He was sent to rehab or jugular from the hospital but he couldn't remember why. Patient is still complaining of from cough and clear phlegm which he says that is chronic for him 4 months. However patient is noticed to be tachypneic On admissions was afebrile, rest of vitals stable. His blood pressures a little bit on the low site 89/54. No tachycardia. He has leukocytosis at 17.7 K with mild low platelets at 133 [patient is known history of thrombocytopenia for many years]. His creatinine is 1.28, his baseline is 0.9-1.1. Magnesium 1.5. No cultures. Chest x-ray shows chronic changes without evidence of acute pulmonary disease. Echo shows ejection fraction 55-60%, with moderate LVH. Patient was started on short course of steroids with prednisone 30 mg by mouth daily as per pulmonary recommendation as well as with Lasix 40 mg IV daily. She was started on Zosyn. Review of Systems CONSTITUTIONAL: No fever, no malaise, no fatigue. HEENT: No recent visual problems or hearing problems. Denied any sore throat. CARDIOVASCULAR: No orthopnea, PND, no palpitations, no syncope. PULMONARY: No shortness of breath, no cough, no hemoptysis. GASTROINTESTINAL: No diarrhea, no nausea, no vomiting, no abdominal pain. Normoactive bowel sounds. NEUROLOGICAL: No headaches, no weakness, no numbness. HEMATOLOGICAL: Denies any bleeding or petechiae. GENITOURINARY: Denies any burning micturition, frequency, or urgency. MUSCULOSKELETAL/RHEUMATOLOGICAL: Denies any joint pain, swelling, or any muscle pain. ENDOCRINE: Denies any polyuria or polydipsia. 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 History of Any Multi-Drug Resistant Organisms: None Reported Past Surgical History: Orthopedic Surgery Additional Past Surgical History / Comment(s): both shoulders- L shoulder rotator cuff repair and R shoulder arthroscopy, L leg fib/tib fx with pinns and screws, plate to R arm, prostate seed implants x 2, R arm B-cell lymphoma removed , circumcision, EGD and colonoscopy Past Anesthesia/Blood Transfusion Reactions: No Reported Reaction Past Psychological History: No Psychological Hx Reported Additional Psychological History / Comment(s): Pt lives at home with his . Pt wheelchairbound. Pt has hospital bed. Pt no longer drives. Pt has home care - [facility], who comes in and helps pt with ADLs and also does some housework. Smoking Status: Former smoker Past Alcohol Use History: None Reported Past Drug Use History: None Reported Additional Drug Use History / Comment(s): pt quit smoking 50 years ago - Past Family History Father Family Medical History: Hypertension Mother Family Medical History: Diabetes Mellitus Medications and Allergies Home Medications Medication Instructions Recorded Confirmed Type Allopurinol 300 mg PO DAILY 02/08/15 08/25/18 History Calcium Carbonate/Vitamin D3 1 tab PO HS 02/08/15 08/25/18 History [Calcium 600-Vit D3 400 Tablet] Multivitamin [Men's Multi-Vitamin] 1 tab PO DAILY 02/08/15 08/25/18 History Tiotropium 18 Mcg/Puff [Spiriva] 1 puff INHALATION RT-DAILY 12/25/15 08/25/18 History Albuterol Nebulized [Ventolin 2.5 mg INHALATION RT-QID 02/10/18 08/25/18 History Nebulized] Budesonide-Formot 160-4.5 Mcg 2 puff INHALATION RT-BID 02/10/18 08/25/18 History [Symbicort 160-4.5 Mcg Inhaler] Carvedilol [Coreg] 6.25 mg PO QAM 02/10/18 08/25/18 History Colchicine 0.6 mg PO DAILY PRN 02/10/18 08/25/18 History FLUoxetine HCL [PROzac] 40 mg PO DAILY 02/10/18 08/25/18 History Furosemide [Lasix] 40 mg PO BID 02/10/18 08/25/18 History Insulin Detemir [Levemir Flextouch] 50 unit SQ HS 02/10/18 08/25/18 History Insulin Lispro [humaLOG Kwikpen] 16 unit SQ AC-TID 02/10/18 08/25/18 History Lisinopril [Zestril] 2.5 mg PO DAILY 02/10/18 08/25/18 History Potassium Chloride [Klor-Con 20] 20 meq PO DAILY 02/10/18 08/25/18 History metFORMIN HCL 1,000 mg PO DAILY 02/10/18 08/25/18 History Apixaban [Eliquis] 5 mg PO BID 06/23/18 08/25/18 History Aspirin EC [Ecotrin Low Dose] 81 mg PO HS 06/23/18 08/25/18 History Carvedilol [Coreg] 12.5 mg PO HS 06/23/18 08/25/18 History Gabapentin [Neurontin] 300 mg PO BID 06/23/18 08/25/18 History Colmar-3 Fatty Acids [Colmar-3] 1,000 mg PO HS 06/23/18 08/25/18 History INSULIN LISPRO (HumaLOG) [humaLOG] See Protocol SQ ACHS 08/25/18 08/25/18 History Ipratropium Nebulized [Atrovent 0.5 mg INHALATION RT-TID 08/25/18 08/25/18 History Nebulized] Pravastatin Sodium [Pravachol] 20 mg PO HS 08/25/18 08/25/18 History Allergies Allergy/AdvReac Type Severity Reaction Status Date / Time No Known Allergies Allergy Verified 08/25/18 08:54 Physical Exam Vitals: Vital Signs Temp Pulse Pulse Pulse Resp BP Pulse Ox 08/25/18 12:28 76 08/25/18 12:16 84 08/25/18 12:00 98.5 F 79 18 89/54 95 08/25/18 08:35 80 08/25/18 08:21 78 08/25/18 08:00 98.8 F 86 20 99/50 93 L 08/25/18 04:00 99.5 F 83 18 89/55 94 L 08/25/18 02:13 97.8 F 93 18 100/60 92 L Intake and Output 08/24/18 08/25/18 08/25/18 22:59 06:59 14:59 Intake Total 230 Output Total 125 850 Balance -125 -620 Intake: Oral 230 Output: Urine 125 850 Other: Voiding Method Urinal Urinal # Voids 1 1 Weight 109 kg GENERAL: The patient is alert and oriented x3, not in any acute distress. Well developed, well nourished. HEENT: Pupils are round and equally reacting to light. EOMI. No scleral icterus. No conjunctival pallor. Normocephalic, atraumatic. No pharyngeal erythema. No thyromegaly. CARDIOVASCULAR: S1 and S2 present. No murmurs, rubs, or gallops. PULMONARY: Chest is clear to auscultation, no wheezing or crackles. ABDOMEN: Soft, nontender, nondistended, normoactive bowel sounds. No palpable organomegaly. MUSCULOSKELETAL: No joint swelling or deformity. EXTREMITIES: No cyanosis, clubbing, or pedal edema. NEUROLOGICAL: Gross neurological examination did not reveal any focal deficits. SKIN: No rashes. Results CBC & Chem 7: 08/25/18 05:42 08/25/18 05:42 Labs: Abnormal Lab Results - Last 24 Hours (Table) 08/25/18 08/25/18 08/25/18 Range/Units 02:51 05:42 05:42 WBC 17.7 H (3.8-10.6) k/uL RBC 3.82 L (4.30-5.90) m/uL Hgb 12.8 L (13.0-17.5) gm/dL MCV 105.8 H (80.0-100.0) fL RDW 17.7 H (11.5-15.5) % Plt Count 133 L (150-450) k/uL Neutrophils # 15.5 H (1.3-7.7) k/uL Lymphocytes # 0.8 L (1.0-4.8) k/uL BUN 33 H (9-20) mg/dL Creatinine 1.28 H (0.66-1.25) mg/dL Glucose 209 H (74-99) mg/dL POC Glucose (mg/dL) 221 H (75-99) mg/dL Magnesium 1.5 L (1.6-2.3) mg/dL 08/25/18 08/25/18 Range/Units 06:24 11:49 WBC (3.8-10.6) k/uL RBC (4.30-5.90) m/uL Hgb (13.0-17.5) gm/dL MCV (80.0-100.0) fL RDW (11.5-15.5) % Plt Count (150-450) k/uL Neutrophils # (1.3-7.7) k/uL Lymphocytes # (1.0-4.8) k/uL BUN (9-20) mg/dL Creatinine (0.66-1.25) mg/dL Glucose (74-99) mg/dL POC Glucose (mg/dL) 227 H 257 H (75-99) mg/dL Magnesium (1.6-2.3) mg/dL Thrombosis Risk Factor Assmnt - Choose All That Apply Any of the Below Risk Factors Present?: Yes Each Factor Represents 1 point: Abnormal pulmonary function (COPD), Heart failure (<1month), Obesity (BMI >25), Swollen legs (current) Each Risk Factor Represents 3 Points: Age 75 years or older, History of DVT/PE Other congenital or acquired thrombophilia - If yes, enter type in comment: No Thrombosis Risk Factor Assessment Total Risk Factor Score: 10 Thrombosis Risk Factor Assessment Level: High Risk Assessment and Plan Assessment: Acute tracheal bronchitis, with some reactive airway disease. History of CVA/TIA, with residual left-sided hemiplegia Dimension Diabetes mellitus History of DVT GERD Hyperlipidemia Hypertension History of posterior arthritis. History of lymphoma status post chemotherapy History of chronic back pain Colitis Hemorrhoids Counts CVA/TIA, dementia, diabetes mellitus, deep venous thrombosis, GERD, hyperlipidemia, hypertension, osteoarthritis , With residual left-sided hemiplegia. History of lymphoma status post chemotherapy. Chronic back pain. Colitis. Gastritis. Hemorrhoids. Gout. Plan: This is a pleasant 82 years old male who presents because of respiratory infection, possibly tracheobronchitis and generalized body aches. Continue with antibiotics and pulmonary input is appreciated. Continue with The same treatment. Continue symptomatic treatment. Resume home medication. Her resume insulin. Continue with diuretics. Monitor lytes and vitals. DVT and GI prophylaxis Further recommendations based on the clinical course of the patient DVT prophylaxis: Subcutaneous heparin GI Prophylaxis: Pepcid PT/OT: Pending Prognosis is guarded
[2018-08-25 15:30] LABS: Hemoglobin A1C 7.9 % (4.0-6.0)
[2018-08-25 17:19] LABS: Glucose,Whole Blood 246 mg/dL (75-99)
[2018-08-25] MEDS ORDERED: HYDROcodone/APAP 5-325MG 1 EACH TAB PO PRN (17:41)
[2018-08-25] MEDS ORDERED: ACETAMINOPHEN TAB 325 MG TAB PO PRN (17:41)
[2018-08-25] MEDS ORDERED: DOCUSATE 100 MG CAP PO PRN (17:42)
[2018-08-25] MEDS: CARVEDILOL 3.125 MG TAB PO SCH (17:56)
[2018-08-25] MEDS ORDERED: METHYL SALICYLATE/MENTHOL CREAM 5 OZ TOPICAL PRN (18:17)
[2018-08-25] MEDS: SYMBICORT 160-4.5 MCG INHALER INHALATION SCH (20:15)
[2018-08-25 20:59] LABS: Glucose,Whole Blood 257 mg/dL (75-99)
[2018-08-25] MEDS ORDERED: INSULIN DETEMIR 100 UNIT/ML 10 ML VIAL SQ SCH (21:00)
[2018-08-25] MEDS ORDERED: NON-FORMULARY DRUG (Omega-3 Fatty Acids [Omega-3] 1,000 MG) PO SCH (21:00)
[2018-08-25] MEDS: APIXABAN 5 MG TAB PO SCH (21:45)
[2018-08-25] MEDS: GABAPENTIN 300 MG CAP PO SCH (21:45)
[2018-08-25] MEDS: ASPIRIN 81 MG PO SCH (21:45)
[2018-08-25] MEDS: PRAVASTATIN SODIUM 20 MG TAB PO SCH (21:45)
[2018-08-26 06:01] LABS: Glucose,Whole Blood 215 mg/dL (75-99)
[2018-08-26] MEDS ORDERED: INSULIN DETEMIR 100 UNIT/ML 10 ML VIAL SQ SCH (06:19)
[2018-08-26] MEDS: metFORMIN 500 MG TAB PO SCH (06:49)
[2018-08-26] MEDS: CARVEDILOL 3.125 MG TAB PO SCH ×2 (06:49→16:55)
[2018-08-26 06:56] LABS: Anisocytosis Slight; Basophils % (A) 0 %; Eosinophils # (A) 0.2 k/uL (0-0.7); Eosinophils % (A) 2 %; HGB 12.4 gm/dL (13.0-17.5); Lymphocytes # (A) 0.6 k/uL (1.0-4.8); Lymphocytes % (A) 5 %; MCH 33.7 pg (25.0-35.0); MCHC 31.8 g/dL (31.0-37.0); MCV 106.1 fL (80.0-100.0); Mean Platelet Volume 8.4; Monocytes # (A) 0.8 k/uL (0-1.0); Monocytes % (A) 7 %; Neutrophils # (A) 10.2 k/uL (1.3-7.7); Neutrophils % (A) 84 %; Platelet Count 116 k/uL (150-450); RBC 3.68 m/uL (4.30-5.90); RDW 17.6 % (11.5-15.5); WBC 12.1 k/uL (3.8-10.6)
[2018-08-26 06:58] LABS: Macrocytosis Marked
[2018-08-26] MEDS: INSULIN ASPART 100 UNIT/ML 1 ML 10 ML VIAL SQ SCH ×7 (06:58→21:19)
[2018-08-26 07:11] LABS: Potassium 4.4 mmol/L (3.5-5.1)
[2018-08-26] MEDS ORDERED: NON-FORMULARY DRUG (Tiotropium 18 Mcg/Puff 1 PUFF) INHALATION SCH (08:00)
--- NOTE | 2018-08-26 08:17 | P.CRDCN ---
History of Present Illness Consult date: 08/26/18 Requesting physician: David Florian Consult reason: shortness of breath Chief complaint: Productive cough History of present illness: This is an 82-year-old gentleman with past medical history significant for hypertension, diabetes, hyperlipidemia, prior history of smoking , prior CVA, sleep apnea, emphysema, history of prostate cancer and lymphoma he follows with Dr. Wheeler as his account coordinator. Patient was transferred here from [facility], he presented there with symptoms of generalized body aches as well as productive cough. He states that he has not been significantly short of breath but has had persistent cough and felt very weak. Chest x-ray at [facility] showed pneumonia, and for this reason he was transferred here for further evaluation. Chest x-ray on arrival here showed chronic changes without evidence for acute pulmonary disease. An echo cardiogram with Doppler study was performed which revealed an ejection fraction of 55-60%. Blood pressure on arrival here 100/60 with a heart rate in the 90s, 92% on 4 L of oxygen, low grade temperature 99.5. White blood cell count on admission 17.7, 12.1 this morning, 1112.4, platelet count 116. Sodium 138, potassium 4.4, BUN 36, creatinine 1.2. Troponins 0.0-4, 0.020, 0.018. Magnesium 1.5. An EKG was performed [facility] which showed a sinus tachycardia with a long first- degree AV block. Lactic acid 2.9. Troponins negative. At the time of my examination this morning, patient denies any shortness of breath, he is coughing up significant amount of a green and dark sputum. 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 History of Any Multi-Drug Resistant Organisms: None Reported Past Surgical History: Orthopedic Surgery Additional Past Surgical History / Comment(s): both shoulders- L shoulder rotator cuff repair and R shoulder arthroscopy, L leg fib/tib fx with pinns and screws, plate to R arm, prostate seed implants x 2, R arm B-cell lymphoma removed , circumcision, EGD and colonoscopy Past Anesthesia/Blood Transfusion Reactions: No Reported Reaction Past Psychological History: No Psychological Hx Reported Additional Psychological History / Comment(s): Pt lives at home with his . Pt wheelchairbound. Pt has hospital bed. Pt no longer drives. Pt has home care - [facility], who comes in and helps pt with ADLs and also does some housework. Smoking Status: Former smoker Past Alcohol Use History: None Reported Past Drug Use History: None Reported Additional Drug Use History / Comment(s): pt quit smoking 50 years ago - Past Family History Father Family Medical History: Hypertension Mother Family Medical History: Diabetes Mellitus Medications and Allergies Home Medications Medication Instructions Recorded Confirmed Type Allopurinol 300 mg PO DAILY 02/08/15 08/25/18 History Calcium Carbonate/Vitamin D3 1 tab PO HS 02/08/15 08/25/18 History [Calcium 600-Vit D3 400 Tablet] Multivitamin [Men's Multi-Vitamin] 1 tab PO DAILY 02/08/15 08/25/18 History Tiotropium 18 Mcg/Puff [Spiriva] 1 puff INHALATION RT-DAILY 12/25/15 08/25/18 History Albuterol Nebulized [Ventolin 2.5 mg INHALATION RT-QID 02/10/18 08/25/18 History Nebulized] Budesonide-Formot 160-4.5 Mcg 2 puff INHALATION RT-BID 02/10/18 08/25/18 History [Symbicort 160-4.5 Mcg Inhaler] Carvedilol [Coreg] 6.25 mg PO QAM 02/10/18 08/25/18 History Colchicine 0.6 mg PO DAILY PRN 02/10/18 08/25/18 History FLUoxetine HCL [PROzac] 40 mg PO DAILY 02/10/18 08/25/18 History Furosemide [Lasix] 40 mg PO BID 02/10/18 08/25/18 History Insulin Detemir [Levemir Flextouch] 50 unit SQ HS 02/10/18 08/25/18 History Insulin Lispro [humaLOG Kwikpen] 16 unit SQ AC-TID 02/10/18 08/25/18 History Lisinopril [Zestril] 2.5 mg PO DAILY 02/10/18 08/25/18 History Potassium Chloride [Klor-Con 20] 20 meq PO DAILY 02/10/18 08/25/18 History metFORMIN HCL 1,000 mg PO DAILY 02/10/18 08/25/18 History Apixaban [Eliquis] 5 mg PO BID 06/23/18 08/25/18 History Aspirin EC [Ecotrin Low Dose] 81 mg PO HS 06/23/18 08/25/18 History Carvedilol [Coreg] 12.5 mg PO HS 06/23/18 08/25/18 History Gabapentin [Neurontin] 300 mg PO BID 06/23/18 08/25/18 History [place]-3 Fatty Acids [[place]-3] 1,000 mg PO HS 06/23/18 08/25/18 History INSULIN LISPRO (HumaLOG) [humaLOG] See Protocol SQ ACHS 08/25/18 08/25/18 History Ipratropium Nebulized [Atrovent 0.5 mg INHALATION RT-TID 08/25/18 08/25/18 History Nebulized] Pravastatin Sodium [Pravachol] 20 mg PO HS 08/25/18 08/25/18 History Allergies Allergy/AdvReac Type Severity Reaction Status Date / Time No Known Allergies Allergy Verified 08/25/18 08:54 Physical Exam Vitals: Vital Signs Temp Pulse Pulse Resp BP Pulse Ox 08/26/18 04:00 97.5 F L 76 18 100/64 94 L 08/26/18 00:00 97.9 F 84 18 114/63 92 L 08/25/18 20:31 70 08/25/18 20:15 72 08/25/18 20:00 98.5 F 86 18 108/58 93 L 08/25/18 16:07 76 08/25/18 16:00 99.3 F 82 17 105/93 97 08/25/18 15:51 74 08/25/18 12:28 76 08/25/18 12:16 84 08/25/18 12:00 98.5 F 79 18 89/54 95 08/25/18 08:35 80 08/25/18 08:21 78 Intake and Output 08/25/18 08/26/18 08/26/18 22:59 06:59 14:59 Intake Total 50 Output Total 650 100 Balance -650 -50 Intake: IV 50 Piperacillin-Tazobactam 3 50 .375 gm In Dextrose/Water 1 50ml.bag @ 12.5 mls/hr IVPB Q8HR [facility] Rx#: [id number] Output: Urine 650 100 Other: Voiding Method Urinal # Voids 1 1 Weight 119 kg PHYSICAL EXAMINATION: GENERAL: 82-year-old gentleman in no acute distress at the time of my examination HEENT: Head is atraumatic, normocephalic. Pupils equal, round. Sclera anicteric. Conjunctiva are clear. Mucous membranes of the mouth are moist. Neck is supple. There is no elevated jugular venous pressure. No carotid bruit is heard. HEART EXAMINATION: Heart S1, S2 normal. No murmur or gallop heard. CHEST EXAMINATION: Lungs reveal scattered coarse rhonchi with crackles to the bases. ABDOMEN: Soft, nontender. Bowel sounds are heard. No organomegaly noted. EXTREMITIES: 2+ peripheral pulses with trace evidence of peripheral edema and no calf tenderness noted. NEUROLOGIC patient is awake, alert and oriented X2. . Results 08/26/18 06:21 08/26/18 06:21 Cardiac Enzymes 08/25/18 08/25/18 Range/Units 12:16 17:14 Troponin I 0.020 0.018 (0.000-0.034) ng/mL CBC 08/26/18 Range/Units 06:21 WBC 12.1 H (3.8-10.6) k/uL RBC 3.68 L (4.30-5.90) m/uL Hgb 12.4 L (13.0-17.5) gm/dL Hct 39.0 (39.0-53.0) % Plt Count 116 L (150-450) k/uL Comprehensive Metabolic Panel 08/26/18 Range/Units 06:21 Sodium 138 (137-145) mmol/L Potassium 4.4 (3.5-5.1) mmol/L Chloride 104 (98-107) mmol/L Carbon Dioxide 25 (22-30) mmol/L BUN 36 H (9-20) mg/dL Creatinine 1.27 H (0.66-1.25) mg/dL Glucose 209 H (74-99) mg/dL Calcium 9.0 (8.4-10.2) mg/dL Current Medications Generic Name Dose Route Start Last Admin Trade Name Freq PRN Reason Stop Dose Admin Acetaminophen 650 mg 08/25/18 17:41 08/25/18 17:57 Tylenol Tab PO 650 mg Q6HR PRN Administration Fever and/ or Pain Hydrocodone Bitart/Acetaminophen 1 each 08/25/18 17:41 [place] 5-325 PO Q6HR PRN Pain Albuterol/Ipratropium 3 ml 08/25/18 08:00 08/25/18 20:14 Duoneb 0.5 Mg-3 Mg/3 Ml Soln INHALATION 3 ml RT-QID PHOEBE Administration Albuterol/Ipratropium 3 ml 08/25/18 04:00 Duoneb 0.5 Mg-3 Mg/3 Ml Soln INHALATION RT-Q2H PRN Shortness Of Breath Or Wheezing Allopurinol 300 mg 08/26/18 09:00 Zyloprim PO DAILY PHOEBE Apixaban 5 mg 08/25/18 21:00 08/25/18 21:45 Eliquis PO 5 mg BID PHOEBE Administration Aspirin 81 mg 08/25/18 21:00 08/25/18 21:45 Aspirin PO 81 mg HS PHOEBE Administration Budesonide/Formoterol Fumarate 2 puff 08/25/18 20:00 08/25/18 20:15 Symbicort 160-4.5 Mcg Inhaler INHALATION 2 puff RT-BID PHOEBE Administration Carvedilol 3.125 mg 08/25/18 17:30 08/26/18 06:49 Coreg PO 3.125 mg BID-W/MEALS PHOEBE Administration Docusate Sodium 100 mg 08/25/18 17:42 08/25/18 17:57 Colace PO 100 mg DAILY PRN Administration Constipation Fluoxetine HCl 40 mg 08/26/18 09:00 Prozac PO DAILY PHOEBE Furosemide 40 mg 08/25/18 09:00 08/25/18 09:05 Lasix IV 40 mg DAILY PHOEBE Administration Gabapentin 300 mg 08/25/18 21:00 08/25/18 21:45 Neurontin PO 300 mg BID PHEOBE Administration Piperacillin/Tazobactam/ 50 mls @ 12.5 mls/hr 08/25/18 08:00 08/25/18 23:40 Dextrose 3.375 gm/ IV Solution IVPB 12.5 mls/hr Q8HR PHOEBE Administration Insulin Aspart 0 unit 08/25/18 07:30 08/26/18 06:58 Novolog SQ 4 unit ACHS PHOEBE Administration Protocol Insulin Aspart 16 unit 08/25/18 17:30 08/26/18 06:58 Novolog SQ 16 unit AC-TID PHOEBE Administration Insulin Detemir 10 unit 08/26/18 09:00 Levemir SQ DAILY PHOEBE Insulin Detemir 50 unit 08/26/18 06:19 Levemir SQ HS PHOEBE Metformin HCl 1,000 mg 08/26/18 07:30 08/26/18 06:49 Glucophage PO 1,000 mg AC-[id number] PHOEBE Administration Methyl Salicylate 1 applic 08/25/18 18:17 Thera-Gesic Cream TOPICAL BID PRN Muscle Pain Potassium Chloride 20 meq 08/26/18 09:00 K-Dur 20 PO DAILY PHOEBE Pravastatin Sodium 20 mg 08/25/18 21:00 08/25/18 21:45 Pravachol PO 20 mg HS PHOEBE Administration Prednisone 30 mg 08/26/18 09:00 PO DAILY PHOEBE Intake and Output 08/25/18 08/26/18 08/26/18 22:59 06:59 14:59 Intake Total 50 Output Total 650 100 Balance -650 -50 Intake: IV 50 Piperacillin-Tazobactam 3 50 .375 gm In Dextrose/Water 1 50ml.bag @ 12.5 mls/hr IVPB Q8HR [facility] Rx#: [id number] Output: Urine 650 100 Other: Voiding Method Urinal # Voids 1 1 Weight 119 kg 08/26/18 06:21 08/26/18 06:21 EKG Interpretations (text) EKG [facility] showed a sinus tachycardia with first-degree AV block Assessment and Plan Plan: Assessment and plan #1 symptoms of generalized malaise, body aches and productive cough, suggestive of early tracheobronchitis, possible pneumonia #2 COPD #3 history of CVA #4 history of prostate cancer #5 diabetes #6 dementia #7 hyperlipidemia #8 history of DVT #9 hypertension #10 sleep apnea #11 lymphoma #12 mild abnormality in troponin not chest with acute coronary syndrome, likely secondary to supply and demand mismatch Plan An echocardiogram with Doppler study was performed here which revealed a normal left ventricular systolic function. No clear-cut evidence of congestive cardiac failure. We will obtain a BMP level. Patient is currently on IV Lasix as ordered by primary. Further recommendations to follow. DNP note has been reviewed, I agree with a documented findings and plan of care. Patient was seen and examined.
[2018-08-26] MEDS: IPRATROPIUM-ALBUTEROL 3 ML NEB INHALATION SCH ×4 (08:18→20:37)
[2018-08-26] MEDS: SYMBICORT 160-4.5 MCG INHALER INHALATION SCH ×2 (08:19→20:37)
[2018-08-26] MEDS: ALLOPURINOL 300 MG TAB PO SCH (09:12)
[2018-08-26] MEDS: APIXABAN 5 MG TAB PO SCH ×2 (09:13→20:33)
[2018-08-26] MEDS: FLUoxetine HCL 20 MG CAP PO SCH (09:14)
[2018-08-26] MEDS: FUROSEMIDE 10 MG/ML 4 ML VIAL IV SCH (09:15)
[2018-08-26] MEDS: GABAPENTIN 300 MG CAP PO SCH ×2 (09:16→20:33)
[2018-08-26] MEDS: INSULIN DETEMIR 100 UNIT/ML 10 ML VIAL SQ SCH (09:18)
[2018-08-26] MEDS: POTASSIUM CHLORIDE ER 20 MEQ TAB.ER PO SCH (09:18)
[2018-08-26] MEDS: predniSONE 10 MG TAB PO SCH (09:18)
[2018-08-26] MEDS: PIPERACILLIN-TAZOBACTAM 3.375 GM in DEXTROSE/WATER 1 50ML.BAG IVPB SCH (09:51)
[2018-08-26 11:04] VITALS: BMI 35.6
--- NOTE | 2018-08-26 11:24 | P.PN ---
Subjective Progress Note Date: 08/26/18 Principal diagnosis: Shortness of breath cough, sputum production Progress note dated 08/26/2018 This is an 82-year-old male who I saw yesterday in consultation with cough and phlegm production, consistent with acute purulent tracheobronchitis with reactive bronchospasm and bronchial inflammation. He probably has underlying COPD from previous tobacco use, and also suffers from a CVA, prostate cancer, dementia, diabetes, DVT, GERD, hyperlipidemia, hypertension, DJD, sleep apnea syndrome, and skin cancer. The patient also has a remote history of lymphoma. Today he is doing better. He is lying in bed. Does not appear to be in any respiratory distress. Yesterday, when I talked to him, sputum that he was producing was mostly white or clear. Today he says her some color to it and a slight yellow or green. He was started on breathing treatments oxygen therapy steroids and antibiotics. Again he is feeling much better today. He was initially at the rehab facility in [place] and transferred to [facility] and then down to [facility]. Objective - Vital Signs Vital signs: Vital Signs Temp 97.3 F L 08/26/18 08:04 Pulse 82 08/26/18 10:29 Resp 18 08/26/18 10:29 BP 102/65 08/26/18 10:29 Pulse Ox 95 08/26/18 10:29 Intake & Output 08/25/18 08/26/18 08/26/18 18:59 06:59 18:59 Intake Total 410 50 240 Output Total 1850 250 300 Balance -1440 -200 -60 Weight 119 kg 119 kg Intake: IV 50 Piperacillin-Tazobactam 3 50 .375 gm In Dextrose/Water 1 50ml.bag @ 12.5 mls/hr IVPB Q8HR [facility] Rx#: [id number] Oral 410 240 Output: Urine 1850 250 300 Other: Voiding Method Urinal # Voids 1 1 - Exam No acute distress, oriented 3. Nasal O2 in place. HEENT examination is grossly unremarkable. Mucous membranes are moist. No oral lesions. Neck supple. Full range of motion. No adenopathy thyromegaly or neck vein distention. Cardiovascular examination reveals regular rhythm rate. S1-S2 normal. No S3 or S4. No discernible murmur noted. Lungs reveal few scattered rhonchi. Some mild expiratory wheezes. Breath sounds are diminished. Slight prolongation on forced maneuver. The patient does some better today than he did yesterday. Abdomen soft bowel sounds are heard. No masses or tenderness. Extremities are intact. No cyanosis clubbing or edema. Skin is without rash or lesion. Neurologic examination is brief but nonfocal. - Labs CBC & Chem 7: 08/26/18 06:21 08/26/18 06:21 Labs: Abnormal Lab Results - Last 24 Hours (Table) 08/25/18 08/25/18 08/25/18 Range/Units 05:42 11:49 17:06 WBC (3.8-10.6) k/uL RBC (4.30-5.90) m/uL Hgb (13.0-17.5) gm/dL MCV (80.0-100.0) fL RDW (11.5-15.5) % Plt Count (150-450) k/uL Neutrophils # (1.3-7.7) k/uL Lymphocytes # (1.0-4.8) k/uL BUN (9-20) mg/dL Creatinine (0.66-1.25) mg/dL Glucose (74-99) mg/dL POC Glucose (mg/dL) 257 H 246 H (75-99) mg/dL Hemoglobin A1c 7.9 H (4.0-6.0) % 08/25/18 08/26/18 08/26/18 Range/Units 20:57 06:00 06:21 WBC 12.1 H (3.8-10.6) k/uL RBC 3.68 L (4.30-5.90) m/uL Hgb 12.4 L (13.0-17.5) gm/dL MCV 106.1 H (80.0-100.0) fL RDW 17.6 H (11.5-15.5) % Plt Count 116 L (150-450) k/uL Neutrophils # 10.2 H (1.3-7.7) k/uL Lymphocytes # 0.6 L (1.0-4.8) k/uL BUN (9-20) mg/dL Creatinine (0.66-1.25) mg/dL Glucose (74-99) mg/dL POC Glucose (mg/dL) 257 H 215 H (75-99) mg/dL Hemoglobin A1c (4.0-6.0) % 08/26/18 Range/Units 06:21 WBC (3.8-10.6) k/uL RBC (4.30-5.90) m/uL Hgb (13.0-17.5) gm/dL MCV (80.0-100.0) fL RDW (11.5-15.5) % Plt Count (150-450) k/uL Neutrophils # (1.3-7.7) k/uL Lymphocytes # (1.0-4.8) k/uL BUN 36 H (9-20) mg/dL Creatinine 1.27 H (0.66-1.25) mg/dL Glucose 209 H (74-99) mg/dL POC Glucose (mg/dL) (75-99) mg/dL Hemoglobin A1c (4.0-6.0) % Assessment and Plan Assessment: Assessment Cough with phlegm production, and the patient was an unchanged chest x-ray, most consistent with purulent tracheobronchitis reactive bronchospasm and bronchial inflammation. Probable COPD from previous tobacco use History of CVA History of prostate cancer History of dementia Diabetes mellitus History of DVT History of gastroesophageal reflux disease History of hyperlipidemia History of hypertension History of DJD History of sleep apnea syndrome History of skin cancer History of lymphoma Plan: Plan dated 08/25/2018 The patient's labs x-rays a medications are all reviewed. The patient's chest x -ray was compared to the previous x-ray done in May of this year. Apparently there is no change. Labs will be reviewed. Medications are reviewed. The patient was placed on appropriate bronchodilators and antibiotics. He also may benefit from a short course of steroids. Additional recommendations and suggestions are forthcoming. Prognosis is guarded. Plan dated 08/26/2018 The patient some medications were adjusted yesterday. Labs x-rays are reviewed. Is no evidence of miranda pneumonia. The patient is better today than he was yesterday. Less bronchospastic. He likely has just upper respiratory tract infection/acute bronchitis with reactive bronchospasm and bronchial inflammation. Again he was placed on breathing treatments steroids and antibiotics. Likely discharge in the next 24-48 hours. Prognosis is generally thought to be good. We'll continue to follow. Time with Patient: Less than 30
[2018-08-26 11:40] LABS: Glucose,Whole Blood 212 mg/dL (75-99)
[2018-08-26 16:42] LABS: Glucose,Whole Blood 276 mg/dL (75-99)
[2018-08-26] MEDS: AMOXIC-POT CLAV 875-125MG 1 EACH TAB PO SCH (20:33)
[2018-08-26] MEDS: PRAVASTATIN SODIUM 20 MG TAB PO SCH (20:33)
[2018-08-26] MEDS: ASPIRIN 81 MG PO SCH (20:33)
[2018-08-26 21:16] LABS: Glucose,Whole Blood 341 mg/dL (75-99)
--- NOTE | 2018-08-26 21:29 | P.PN ---
Subjective This is a pleasant 82 years old male with past medical history of CVA/TIA, dementia, diabetes mellitus, deep venous thrombosis, GERD, hyperlipidemia, hypertension, osteoarthritis , With residual left-sided hemiplegia. History of lymphoma status post chemotherapy. Chronic back pain. Colitis. Gastritis. Hemorrhoids. Gout. Was transferred from [facility] for possible pneumonia. However when the chest x-ray reviewed by the entry level receptionist that shows chronic changes, which is the same per radiology report. Patient telling me he went from rehab to [facility] because he has pain all over his body. He was sent to rehab or jugular from the hospital but he couldn't remember why. Patient is still complaining of from cough and clear phlegm which he says that is chronic for him 4 months. However patient is noticed to be tachypneic On admissions was afebrile, rest of vitals stable. His blood pressures a little bit on the low site 89/54. No tachycardia. He has leukocytosis at 17.7 K with mild low platelets at 133 [patient is known history of thrombocytopenia for many years]. His creatinine is 1.28, his baseline is 0.9-1.1. Magnesium 1.5. No cultures. Chest x-ray shows chronic changes without evidence of acute pulmonary disease. Echo shows ejection fraction 55-60%, with moderate LVH. Patient was started on short course of steroids with prednisone 30 mg by mouth daily as per pulmonary recommendation as well as with Lasix 40 mg IV daily. She was started on Zosyn. 08/26/2018 pt looks better and more awake , his generalized body aches is improving , pt leukocytosis is improving on zosyn , pulmonary follow is appreciated discharge planning in 24-48 hours Objective - Vital Signs Vital signs: Vital Signs Temp 97.3 F L 08/26/18 08:04 Pulse 84 08/26/18 20:45 Resp 18 08/26/18 20:37 BP 118/71 08/26/18 15:34 Pulse Ox 92 L 08/26/18 20:37 Intake & Output 08/26/18 08/26/18 08/27/18 06:59 18:59 06:59 Intake Total 50 240 Output Total 250 600 Balance -200 -360 Weight 119 kg 119 kg Intake: IV 50 Piperacillin-Tazobactam 3 50 .375 gm In Dextrose/Water 1 50ml.bag @ 12.5 mls/hr IVPB Q8HR [facility] Rx#: [id number] Oral 240 Output: Urine 250 600 Other: # Voids 1 - Exam GENERAL: The patient is alert and oriented x3, not in any acute distress. Well developed, well nourished. HEENT: Pupils are round and equally reacting to light. EOMI. No scleral icterus. No conjunctival pallor. Normocephalic, atraumatic. No pharyngeal erythema. No thyromegaly. CARDIOVASCULAR: S1 and S2 present. No murmurs, rubs, or gallops. PULMONARY: Chest is clear to auscultation, no wheezing or crackles. ABDOMEN: Soft, nontender, nondistended, normoactive bowel sounds. No palpable organomegaly. MUSCULOSKELETAL: No joint swelling or deformity. EXTREMITIES: No cyanosis, clubbing, or pedal edema. NEUROLOGICAL: Gross neurological examination did not reveal any focal deficits. SKIN: No rashes. - Labs CBC & Chem 7: 08/26/18 06:21 08/26/18 06:21 Labs: Abnormal Lab Results - Last 24 Hours (Table) 08/26/18 08/26/18 08/26/18 Range/Units 06:00 06:21 06:21 WBC 12.1 H (3.8-10.6) k/uL RBC 3.68 L (4.30-5.90) m/uL Hgb 12.4 L (13.0-17.5) gm/dL MCV 106.1 H (80.0-100.0) fL RDW 17.6 H (11.5-15.5) % Plt Count 116 L (150-450) k/uL Neutrophils # 10.2 H (1.3-7.7) k/uL Lymphocytes # 0.6 L (1.0-4.8) k/uL BUN 36 H (9-20) mg/dL Creatinine 1.27 H (0.66-1.25) mg/dL Glucose 209 H (74-99) mg/dL POC Glucose (mg/dL) 215 H (75-99) mg/dL 08/26/18 08/26/18 08/26/18 Range/Units 11:36 16:38 21:12 WBC (3.8-10.6) k/uL RBC (4.30-5.90) m/uL Hgb (13.0-17.5) gm/dL MCV (80.0-100.0) fL RDW (11.5-15.5) % Plt Count (150-450) k/uL Neutrophils # (1.3-7.7) k/uL Lymphocytes # (1.0-4.8) k/uL BUN (9-20) mg/dL Creatinine (0.66-1.25) mg/dL Glucose (74-99) mg/dL POC Glucose (mg/dL) 212 H 276 H 341 H (75-99) mg/dL Assessment and Plan Assessment: Acute tracheal bronchitis, with some reactive airway disease. History of CVA/TIA, with residual left-sided hemiplegia Dimension Diabetes mellitus History of DVT GERD Hyperlipidemia Hypertension History of posterior arthritis. History of lymphoma status post chemotherapy History of chronic back pain Colitis Hemorrhoids Counts CVA/TIA, dementia, diabetes mellitus, deep venous thrombosis, GERD, hyperlipidemia, hypertension, osteoarthritis , With residual left-sided hemiplegia. History of lymphoma status post chemotherapy. Chronic back pain. Colitis. Gastritis. Hemorrhoids. Gout. Plan: This is a pleasant 82 years old male who presents because of respiratory infection, possibly tracheobronchitis and generalized body aches. Continue with antibiotics and pulmonary input is appreciated. Continue with The same treatment. Continue symptomatic treatment. Resume home medication. Her resume insulin. Continue with diuretics. Monitor lytes and vitals. DVT and GI prophylaxis Further recommendations based on the clinical course of the patient DVT prophylaxis: Subcutaneous heparin GI Prophylaxis: Pepcid PT/OT: Pending Prognosis is guarded
[2018-08-27 06:25] LABS: Glucose,Whole Blood 203 mg/dL (75-99)
[2018-08-27 06:46] LABS: Anisocytosis Slight; Basophils % (A) 0 %; Eosinophils # (A) 0.1 k/uL (0-0.7); Eosinophils % (A) 1 %; HCT 40.8 % (39.0-53.0); Lymphocytes # (A) 0.7 k/uL (1.0-4.8); Lymphocytes % (A) 6 %; MCH 33.8 pg (25.0-35.0); MCHC 31.9 g/dL (31.0-37.0); MCV 105.9 fL (80.0-100.0); Mean Platelet Volume 8.6; Monocytes # (A) 0.8 k/uL (0-1.0); Monocytes % (A) 7 %; Neutrophils % (A) 83 %; Platelet Count 132 k/uL (150-450); RBC 3.85 m/uL (4.30-5.90); RDW 17.3 % (11.5-15.5); WBC 10.9 k/uL (3.8-10.6)
[2018-08-27 06:47] LABS: Macrocytosis Marked
[2018-08-27] MEDS: metFORMIN 500 MG TAB PO SCH (06:48)
[2018-08-27] MEDS: INSULIN ASPART 100 UNIT/ML 1 ML 10 ML VIAL SQ SCH ×4 (06:54→12:06)
[2018-08-27] MEDS ORDERED: CARVEDILOL 3.125 MG TAB PO SCH (07:30)
[2018-08-27 07:58] VITALS: RESP 16; TEMP 97.4
[2018-08-27] MEDS: ALLOPURINOL 300 MG TAB PO SCH (08:45)
[2018-08-27] MEDS: AMOXIC-POT CLAV 875-125MG 1 EACH TAB PO SCH (08:45)
[2018-08-27] MEDS: APIXABAN 5 MG TAB PO SCH (08:46)
[2018-08-27] MEDS: FLUoxetine HCL 20 MG CAP PO SCH (08:47)
[2018-08-27] MEDS: FUROSEMIDE 10 MG/ML 4 ML VIAL IV SCH (08:48)
[2018-08-27] MEDS: GABAPENTIN 300 MG CAP PO SCH (08:52)
[2018-08-27] MEDS: INSULIN DETEMIR 100 UNIT/ML 10 ML VIAL SQ SCH (08:53)
[2018-08-27] MEDS: POTASSIUM CHLORIDE ER 20 MEQ TAB.ER PO SCH (08:54)
[2018-08-27] MEDS: predniSONE 10 MG TAB PO SCH (08:54)
[2018-08-27] MEDS: IPRATROPIUM-ALBUTEROL 3 ML NEB INHALATION SCH ×2 (11:08)
[2018-08-27] MEDS: SYMBICORT 160-4.5 MCG INHALER INHALATION SCH (11:08)
[2018-08-27 11:40] VITALS: BP 127/74; PULSE 82
[2018-08-27 11:53] LABS: Glucose,Whole Blood 175 mg/dL (75-99)
--- NOTE | 2018-08-27 12:06 | P.PN ---
Subjective Progress Note Date: 08/27/18 Principal diagnosis: Acute purulent tracheobronchitis The patient is seen again today 08/27/2018 in follow-up on the selective care unit. He is currently awake and alert in no acute distress. He is laying flat in bed without any respiratory distress. He is maintaining good O2 saturations in the 90s on 3 L/m per nasal cannula. He's afebrile. Hemodynamically stable. White count 10.9. Hemoglobin 13.0. He remains in a negative balance. Objective - Vital Signs Vital signs: Vital Signs Temp 97.4 F L 08/27/18 11:37 Pulse 82 08/27/18 11:37 Resp 16 08/27/18 11:37 BP 127/74 08/27/18 11:37 Pulse Ox 92 L 08/27/18 04:00 Intake & Output 08/26/18 08/27/18 08/27/18 18:59 06:59 18:59 Intake Total 240 90 180 Output Total 600 750 400 Balance -360 -660 -220 Weight 119 kg 117.5 kg Intake: IV 90 .9 90 Oral 240 180 Output: Urine 600 750 400 Other: # Voids 1 - Exam GENERAL EXAM: Alert, comfortable in no apparent distress. HEAD: Normocephalic. EYES: Normal reaction of pupils, equal size. NOSE: Clear with pink turbinates. THROAT: No erythema or exudates. NECK: No masses, no JVD. CHEST: No chest wall deformity. LUNGS: Equal air entry with no crackles, wheeze, rhonchi or dullness. CVS: S1 and S2 normal with no audible murmur, regular rhythm. ABDOMEN: No hepatosplenomegaly, normal bowel sounds, no guarding or rigidity. SPINE: No scoliosis or deformity SKIN: No rashes CENTRAL NERVOUS SYSTEM: No focal deficits, tone is normal in all 4 extremities. EXTREMITIES: There is no peripheral edema. No clubbing, no cyanosis. Peripheral pulses are intact. - Labs CBC & Chem 7: 08/27/18 06:17 08/26/18 06:21 Labs: Abnormal Lab Results - Last 24 Hours (Table) 08/26/18 08/26/18 08/27/18 Range/Units 16:38 21:12 06:17 WBC 10.9 H (3.8-10.6) k/uL RBC 3.85 L (4.30-5.90) m/uL MCV 105.9 H (80.0-100.0) fL RDW 17.3 H (11.5-15.5) % Plt Count 132 L (150-450) k/uL Neutrophils # 9.0 H (1.3-7.7) k/uL Lymphocytes # 0.7 L (1.0-4.8) k/uL POC Glucose (mg/dL) 276 H 341 H (75-99) mg/dL 08/27/18 08/27/18 Range/Units 06:23 11:49 WBC (3.8-10.6) k/uL RBC (4.30-5.90) m/uL MCV (80.0-100.0) fL RDW (11.5-15.5) % Plt Count (150-450) k/uL Neutrophils # (1.3-7.7) k/uL Lymphocytes # (1.0-4.8) k/uL POC Glucose (mg/dL) 203 H 175 H (75-99) mg/dL Assessment and Plan Assessment: Impression: #1 Acute on chronic hypoxic respiratory failure secondary to an acute exacerbation of chronic obstructive pulmonary disease, complicated by purulent tracheobronchitis. #2 History of chronic tobacco dependence. #3 History of CVA. #4 History of prostate cancer. #5 History of dementia. #6 Diabetes mellitus. #7 History DVT. Anticoagulated with Eliquis. #8 Gastroesophageal reflux disease. #9 Hyperlipidemia. #10 History of hypertension. #11 History DJD. #12 History of obstructive sleep apnea. #13 History of skin cancer. #14 History of lymphoma. Plan: The patient was seen and evaluated by Dr. Dennis. He is stable from the pulmonary standpoint. He could be discharged to extended care facility once cleared medically. He'll complete his antibiotics. Complete a prednisone taper. Continue Symbicort and DuoNeb inhalations.
--- NOTE | 2018-08-27 12:13 | P.DS ---
Providers Date of admission: 08/25/18 01:57 Attending physician: David Florian Consults: 08/25/18 03:54 Consult Physician Urgent Consulting Provider: Romaine Dennis Consult Reason/Comments: pneumonia Do you want consulting provider notified?: Yes 08/25/18 11:58 Consult Physician Routine Consulting Provider: Fletcher Mcnair Consult Reason/Comments: CHF Do you want consulting provider notified?: Yes Primary care physician: [facility] Course: This is a pleasant 82 years old male with past medical history of CVA/TIA, dementia, diabetes mellitus, deep venous thrombosis, GERD, hyperlipidemia, hypertension, osteoarthritis , With residual left-sided hemiplegia. History of lymphoma status post chemotherapy. Chronic back pain. Colitis. Gastritis. Hemorrhoids. Gout. Was transferred from [facility] for possible pneumonia. However when the chest x-ray reviewed by the superintendent production that shows chronic changes, which is the same per radiology report. Patient telling me he went from rehab to [facility] because he has pain all over his body. when he came in Patient was still complaining of from cough and clear phlegm which he says that is chronic for him for months. However patient is noticed to be tachypneic on admission On admissions was afebrile, rest of vitals stable. His blood pressures a little bit on the low site 89/54. No tachycardia. He has leukocytosis at 17.7 K with mild low platelets at 133 [patient is known history of thrombocytopenia for many years]. His creatinine is 1.28, his baseline is 0.9-1.1. Magnesium 1.5. No cultures. Chest x-ray shows chronic changes without evidence of acute pulmonary disease. Echo shows ejection fraction 55-60%, with moderate LVH. Patient was started on short course of steroids with prednisone 30 mg by mouth daily as per pulmonary recommendation as well as with Lasix 40 mg IV daily. She was started on Zosyn. And switched to Augmentin upon discharge. On the day of discharge patient returned back to his baseline he was fully awake no pain in his body which was resolved. No chest pain or dyspnea. Mild cough. No abdominal pain and his abdominal examination was benign. No nausea and vomiting. Patient tolerating diet well. Patient himself feels he is ready to go back to his rehab Patient has been evaluated by superintendent production and impression that patient has no evidence of miranda pneumonia. He likely has just upper respiratory tract infection/acute bronchitis with reactive bronchospasm and bronchial inflammation. Patient is cleared by pulmonary team for discharge Problem and management plan was discussed with the patient and he verbalized understanding and acceptance Patient is found stable and can be discharged back to his rehab/usp but we recommend follow-up with his PCP in one week Plan - Discharge Summary Discharge Rx Participant: No New Discharge Prescriptions: New Amoxic-Pot Clav 875-125Mg [Augmentin 875-125] 1 each PO Q12HR 5 Days #10 tab Insulin Detemir [Levemir] 10 unit SQ DAILY syr predniSONE 5 mg PO DIRECTED #24 tab Continue Multivitamin [Men's Multi-Vitamin] 1 tab PO DAILY Calcium Carbonate/Vitamin D3 [Calcium 600-Vit D3 400 Tablet] 1 tab PO HS Allopurinol 300 mg PO DAILY Tiotropium 18 Mcg/Puff [Spiriva] 1 puff INHALATION RT-DAILY Albuterol Nebulized [Ventolin Nebulized] 2.5 mg INHALATION RT-QID Insulin Detemir [Levemir Flextouch] 50 unit SQ HS Budesonide-Formot 160-4.5 Mcg [Symbicort 160-4.5 Mcg Inhaler] 2 puff INHALATION RT-BID Insulin Lispro [humaLOG Kwikpen] 16 unit SQ AC-TID Furosemide [Lasix] 40 mg PO BID Carvedilol [Coreg] 6.25 mg PO QAM metFORMIN HCL 1,000 mg PO DAILY FLUoxetine HCL [PROzac] 40 mg PO DAILY Potassium Chloride [Klor-Con 20] 20 meq PO DAILY Lisinopril [Zestril] 2.5 mg PO DAILY Apixaban [Eliquis] 5 mg PO BID Gabapentin [Neurontin] 300 mg PO BID [place]-3 Fatty Acids [[place]-3] 1,000 mg PO HS Aspirin EC [Ecotrin Low Dose] 81 mg PO HS INSULIN LISPRO (HumaLOG) [humaLOG] See Protocol SQ ACHS Pravastatin Sodium [Pravachol] 20 mg PO HS Ipratropium Nebulized [Atrovent Nebulized] 0.5 mg INHALATION RT-TID Discontinued Colchicine 0.6 mg PO DAILY PRN PRN Reason: GOUT Carvedilol [Coreg] 12.5 mg PO HS Discharge Medication List Allopurinol 300 mg PO DAILY 03/12/15 [History] Calcium Carbonate/Vitamin D3 [Calcium 600-Vit D3 400 Tablet] 1 tab PO HS [History] Multivitamin [Men's Multi-Vitamin] 1 tab PO DAILY 02/08/15 [History] Tiotropium 18 Mcg/Puff [Spiriva] 1 puff INHALATION RT-DAILY 12/25/15 [History] Albuterol Nebulized [Ventolin Nebulized] 2.5 mg INHALATION RT-QID 02/10/18 [ History] Budesonide-Formot 160-4.5 Mcg [Symbicort 160-4.5 Mcg Inhaler] 2 puff INHALATION RT-BID 02/10/18 [History] Carvedilol [Coreg] 6.25 mg PO QAM 02/10/18 [History] FLUoxetine HCL [PROzac] 40 mg PO DAILY 02/10/18 [History] Furosemide [Lasix] 40 mg PO BID 02/10/18 [History] Insulin Detemir [Levemir Flextouch] 50 unit SQ HS 02/10/18 [History] Insulin Lispro [humaLOG Kwikpen] 16 unit SQ AC-TID 02/10/18 [History] Lisinopril [Zestril] 2.5 mg PO DAILY 02/10/18 [History] Potassium Chloride [Klor-Con 20] 20 meq PO DAILY 02/10/18 [History] metFORMIN HCL 1,000 mg PO DAILY 02/10/18 [History] Apixaban [Eliquis] 5 mg PO BID 06/23/18 [History] Aspirin EC [Ecotrin Low Dose] 81 mg PO HS 06/23/18 [History] Gabapentin [Neurontin] 300 mg PO BID 06/23/18 [History] [place]-3 Fatty Acids [[place]-3] 1,000 mg PO HS 06/23/18 [History] INSULIN LISPRO (HumaLOG) [humaLOG] See Protocol SQ ACHS 08/25/18 [History] Ipratropium Nebulized [Atrovent Nebulized] 0.5 mg INHALATION RT-TID 08/25/18 [ History] Pravastatin Sodium [Pravachol] 20 mg PO HS 08/25/18 [History] Amoxic-Pot Clav 875-125Mg [Augmentin 875-125] 1 each PO Q12HR 5 Days #10 tab [Rx] Insulin Detemir [Levemir] 10 unit SQ DAILY syr 08/27/18 [Rx] predniSONE 5 mg PO DIRECTED #24 tab 08/27/18 [Rx] Activity/Diet/Wound Care/Special Instructions: cardiac and diabetic diet 1500 K.calin per day please provide oxygen via nasal cannula (2-3) L/m to keep oxygen saturation above 92% activity as tolerated Discharge Disposition: TRANSFER TO SNF/ECF
--- NOTE | 2018-08-27 12:16 | P.PN ---
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 Patient was transferred here from [facility], he presented there with symptoms of generalized body aches as well as productive cough. He states that he has not been significantly short of breath but has had persistent cough and felt very weak. Chest x-ray at [place] showed pneumonia, and for this reason he was transferred here for further evaluation. Chest x-ray on arrival here showed chronic changes without evidence for acute pulmonary disease. An echo cardiogram with Doppler study was performed which revealed an ejection fraction of 55-60%. Blood pressure on arrival here 100/60 with a heart rate in the 90s, 92% on 4 L of oxygen, low grade temperature 99.5. White blood cell count on admission 17.7, 12.1 this morning, 1112.4, platelet count 116. Sodium 138, potassium 4.4, BUN 36, creatinine 1.2. Troponins 0.0-4, 0.020, 0.018. Magnesium 1.5. An EKG was performed [facility] which showed a sinus tachycardia with a long first- degree AV block. Lactic acid 2.9. Troponins negative. At the time of my examination this morning, patient denies any shortness of breath, he is coughing up significant amount of a green and dark sputum. Patient seen and examined this morning, continues to have productive cough. Blood pressure 127/70 with a heart rate in the 80s, white blood cell count 10.9 , hemoglobin 13, platelet count 132. Objective - Vital Signs Vital signs: Vital Signs Temp 97.4 F L 08/27/18 11:37 Pulse 82 08/27/18 11:37 Resp 16 08/27/18 11:37 BP 127/74 08/27/18 11:37 Pulse Ox 92 L 08/27/18 04:00 Intake & Output 08/26/18 08/27/18 08/27/18 18:59 06:59 18:59 Intake Total 240 90 180 Output Total 600 750 400 Balance -360 -660 -220 Weight 119 kg 117.5 kg Intake: IV 90 .9 90 Oral 240 180 Output: Urine 600 750 400 Other: # Voids 1 - Exam PHYSICAL EXAMINATION: GENERAL: 82-year-old gentleman in no acute distress at the time of my examination HEENT: Head is atraumatic, normocephalic. Pupils equal, round. Sclera anicteric. Conjunctiva are clear. Mucous membranes of the mouth are moist. Neck is supple. There is no elevated jugular venous pressure. No carotid bruit is heard. HEART EXAMINATION: Heart S1, S2 normal. No murmur or gallop heard. CHEST EXAMINATION: Lungs reveal scattered coarse rhonchi with crackles to the bases. ABDOMEN: Soft, nontender. Bowel sounds are heard. No organomegaly noted. EXTREMITIES: 2+ peripheral pulses with trace evidence of peripheral edema and no calf tenderness noted. NEUROLOGIC patient is awake, alert and oriented X2. - Labs CBC & Chem 7: 08/27/18 06:17 08/26/18 06:21 Labs: Abnormal Lab Results - Last 24 Hours (Table) 08/26/18 08/26/18 08/27/18 Range/Units 16:38 21:12 06:17 WBC 10.9 H (3.8-10.6) k/uL RBC 3.85 L (4.30-5.90) m/uL MCV 105.9 H (80.0-100.0) fL RDW 17.3 H (11.5-15.5) % Plt Count 132 L (150-450) k/uL Neutrophils # 9.0 H (1.3-7.7) k/uL Lymphocytes # 0.7 L (1.0-4.8) k/uL POC Glucose (mg/dL) 276 H 341 H (75-99) mg/dL 08/27/18 08/27/18 Range/Units 06:23 11:49 WBC (3.8-10.6) k/uL RBC (4.30-5.90) m/uL MCV (80.0-100.0) fL RDW (11.5-15.5) % Plt Count (150-450) k/uL Neutrophils # (1.3-7.7) k/uL Lymphocytes # (1.0-4.8) k/uL POC Glucose (mg/dL) 203 H 175 H (75-99) mg/dL Assessment and Plan Plan: Assessment and plan #1 symptoms of generalized malaise, body aches and productive cough, suggestive of early tracheobronchitis, possible pneumonia #2 COPD #3 history of CVA #4 history of prostate cancer #5 diabetes #6 dementia #7 hyperlipidemia #8 history of DVT #9 hypertension #10 sleep apnea #11 lymphoma #12 mild abnormality in troponin not chest with acute coronary syndrome, likely secondary to supply and demand mismatch Plan An echocardiogram with Doppler study was performed here which revealed a normal left ventricular systolic function. No clear-cut evidence of congestive cardiac failure. We'll discontinue the IV Lasix, follow the patient with you now on an as-needed basis only, please don't hesitate to call us if you have any questions at all. DNP note has been reviewed, I agree with a documented findings and plan of care. Patient was seen and examined.
[2018-08-28] MEDS ORDERED: FUROSEMIDE 40 MG TAB PO SCH (09:00)
--- NOTE | 2018-09-01 09:39 | CDI ---
Documentation Clarification Form Date: 09/01/2018 9:26:10 AM From: TOY Anthony; Sherine Knight Ground Host/Hostess Phone: If you have a question, contact Sherine Knight Ground Host/Hostess at [phone] between 8am & 5pm. Admit Date: 08/25/2018 1:57:00 AM Patient Name: Andres Solis Visit Number: [id number] Discharge Date: 08/27/18 ATTENTION: The Clinical Documentation Specialists (CDI) and [facility] Coding Staff appreciate your assistance in clarifying documentation. Please respond to the clarification below the line at the bottom and electronically sign. The CDI & [facility] Coding staff will review the response and follow-up if needed. Please note: Queries are made part of the Legal Health Record. If you have any questions, please contact the author of this message via ITS. Dario Christine MD Conflicting documentation has been found in the medical record regarding COPD. Probable COPD from previous tobacco use is noted on consultation, and progress note 9-28 (Pulmonary) there is documentation of COPD exacerbation. The discharge summary states acute bronchitis with reactive bronchospasm and bronchial inflammation. Clinical Indicators: Afebrile, BP 89/54, leukocytosis, cough, clear phlegm. Treatment: Antibiotics, diuretics, steroids, breathing treatments. In your opinion what is the most clinically appropriate diagnosis for this patient? COPD exacerbation No COPD Other explanation of clinical findings Unable to determine (no explanation for clinical findings) i think pt has acute exacerbation of his chronic disease due to and complicated by acute infection and as per pulmonary stating Acute on chronic hypoxic respiratory failure secondary to an acute exacerbation of chronic obstructive pulmonary disease, complicated by purulent tracheobronchitis MTDD
== END 2018-08-27 15:03 | DRG 190 ==
LOC: 6SEL 01:57
PROVIDERS: ADMIT Internal Medicine; ATTEND Internal Medicine
DX: J44.0 Chronic obstructive pulmonary disease with (acute) lower respiratory infection (principal); J96.21 Acute and chronic respiratory failure with hypoxia; C85.90 Non-Hodgkin lymphoma, unspecified, unspecified site; G81.94 Hemiplegia, unspecified affecting left nondominant side; J44.1 Chronic obstructive pulmonary disease with (acute) exacerbation; J20.9 Acute bronchitis, unspecified; D69.6 Thrombocytopenia, unspecified; E11.9 Type 2 diabetes mellitus without complications; E78.5 Hyperlipidemia, unspecified; F03.90 Unspecified dementia, unspecified severity, without behavioral disturbance, psychotic disturbance, mood disturbance, and anxiety; G47.33 Obstructive sleep apnea (adult) (pediatric); G89.29 Other chronic pain; M54.9 Dorsalgia, unspecified; I10 Essential (primary) hypertension; I44.30 Unspecified atrioventricular block; I48.91 Unspecified atrial fibrillation; K21.9 Gastro-esophageal reflux disease without esophagitis; K29.70 Gastritis, unspecified, without bleeding; K52.9 Noninfective gastroenteritis and colitis, unspecified; K64.9 Unspecified hemorrhoids; M10.9 Gout, unspecified; M19.90 Unspecified osteoarthritis, unspecified site; Z79.01 Long term (current) use of anticoagulants; Z79.4 Long term (current) use of insulin; Z79.51 Long term (current) use of inhaled steroids; Z82.49 Family history of ischemic heart disease and other diseases of the circulatory system; Z83.3 Family history of diabetes mellitus; Z85.46 Personal history of malignant neoplasm of prostate; Z85.828 Personal history of other malignant neoplasm of skin; Z86.718 Personal history of other venous thrombosis and embolism; Z87.11 Personal history of peptic ulcer disease; Z87.891 Personal history of nicotine dependence; Z92.21 Personal history of antineoplastic chemotherapy; Z99.3 Dependence on wheelchair
CPT/HCPCS: 71045; 80048; 83036; 83605; 83735; 83880; 84484; 85025; 93306; 94640; 94760

== ENCOUNTER 2018-10-05 17:42 | Inpatient (IN) | payer MEDICARE ==
[2018-10-05] MEDS ORDERED: SODIUM CHLORIDE 0.9% 500 ML 500 ML IV STA (18:01)
--- NOTE | 2018-10-05 18:03 | ED ---
General Adult HPI - General Chief complaint: Altered Mental Status Stated complaint: Weakness Time Seen by Provider: 10/05/18 17:45 Source: patient, RN notes reviewed Mode of arrival: wheelchair Limitations: physical limitation - History of Present Illness Initial comments: This is an 82-year-old male who presents to the emergency department who has had a previous stroke. Patient comes in today because the states when he got up this morning he was having some slight difficulty speaking she thought initially he was confused but it turned out he was going on but just couldn't express himself accurately this progressed throughout the day. She states is the day progressed he became less and less able to express himself she says it was at its worst at about 2:00 this afternoon and it stayed the same since then. Patient has complained of a headache he's complaining of bilateral shoulder pain and leg pain. Patient is not had any recent fever chills or cough per patient denies any abdominal pain patient denies nausea vomiting diarrhea. Patient denies any weakness in any of his extremities per patient denies any visual disturbance. Patient states the headache is diffuse throughout his head is no specific area. Patient denies any recent injury or fall. - Related Data Home Medications Medication Instructions Recorded Confirmed Allopurinol 300 mg PO DAILY 02/08/15 10/05/18 Calcium Carbonate/Vitamin D3 1 tab PO DAILY 02/08/15 10/05/18 [Calcium 600-Vit D3 400 Tablet] Multivitamin [Men's Multi-Vitamin] 1 tab PO DAILY 02/08/15 10/05/18 Tiotropium 18 Mcg/Puff [Spiriva] 1 cap INHALATION RT-DAILY 12/25/15 10/05/18 Albuterol Nebulized [Ventolin 2.5 mg INHALATION RT-QID PRN 02/10/18 10/05/18 Nebulized] Budesonide-Formot 160-4.5 Mcg 2 puff INHALATION RT-BID 02/10/18 10/05/18 [Symbicort 160-4.5 Mcg Inhaler] Carvedilol [Coreg] 6.25 mg PO DAILY 02/10/18 10/05/18 FLUoxetine HCL [PROzac] See Taper PO DIRECTED 02/10/18 10/05/18 Lisinopril [Zestril] 2.5 mg PO DAILY 02/10/18 10/05/18 metFORMIN HCL 1,000 mg PO DAILY 02/10/18 10/05/18 Apixaban [Eliquis] 5 mg PO BID 06/23/18 10/05/18 Aspirin EC [Ecotrin Low Dose] 81 mg PO HS 06/23/18 10/05/18 Gabapentin [Neurontin] 300 mg PO BID 06/23/18 10/05/18 Ipratropium Nebulized [Atrovent 0.5 mg INHALATION RT-QID PRN 08/25/18 10/05/18 Nebulized] Pravastatin Sodium [Pravachol] 20 mg PO HS 08/25/18 10/05/18 Ascorbic Acid [Vitamin C] 1,000 mg PO DAILY 10/05/18 10/05/18 Cider Vinegar [Apple Cider Vinegar] 300 mg PO DAILY 10/05/18 10/05/18 Fish Oil/Dha/Epa [Fish Oil 1,200 1 cap PO HS 10/05/18 10/05/18 mg Fish Oil] Furosemide [Lasix] 20 mg PO DAILY 10/05/18 10/05/18 Insulin Aspart [NovoLOG Flexpen] 20 units SQ AC-TID 10/05/18 10/05/18 Insulin Glargine,Hum.rec.anlog 55 unit SQ HS 10/05/18 10/05/18 [Lantus Solostar] Naturna(Unknown) 1 tab PO HS 10/05/18 10/05/18 Ubidecarenone [Co Q-10] 100 mg PO DAILY 10/05/18 10/05/18 Allergies Allergy/AdvReac Type Severity Reaction Status Date / Time No Known Allergies Allergy Verified 10/05/18 17:58 Review of Systems ROS Statement: Those systems with pertinent positive or pertinent negative responses have been documented in the HPI. ROS Other: All systems not noted in ROS Statement are negative. 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 History of Any Multi-Drug Resistant Organisms: None Reported Past Surgical History: Orthopedic Surgery Additional Past Surgical History / Comment(s): both shoulders- L shoulder rotator cuff repair and R shoulder arthroscopy, L leg fib/tib fx with pinns and screws, plate to R arm, prostate seed implants x 2, R arm B-cell lymphoma removed , circumcision, EGD and colonoscopy Past Anesthesia/Blood Transfusion Reactions: No Reported Reaction Past Psychological History: No Psychological Hx Reported Smoking Status: Former smoker Past Alcohol Use History: None Reported Past Drug Use History: None Reported - Past Family History Father Family Medical History: Hypertension Mother Family Medical History: Diabetes Mellitus General Exam - General Exam Comments Initial Comments: GENERAL: Patient is well-developed and well-nourished. Patient is nontoxic and well- hydrated and is in no acute distress. ENT: Neck is soft and supple. No significant lymphadenopathy is noted. Oropharynx is clear. Moist mucous membranes. Neck has full range of motion without eliciting any pain. EYES: The sclera were anicteric and conjunctiva were pink and moist. Extraocular movements were intact and pupils were equal round and reactive to light. Eyelids were unremarkable. PULMONARY: Unlabored respirations. Good breath sounds bilaterally. No audible rales rhonchi or wheezing was noted. CARDIOVASCULAR: There is a regular rate and rhythm without any murmurs gallops or rubs. ABDOMEN: Soft and nontender with normal bowel sounds. SKIN: Skin is clear with no lesions or rashes and otherwise unremarkable. NEUROLOGIC: Patient is alert and oriented x3. Cranial nerves II through XII are grossly intact. Motor and sensory are also intact. Expressive aphasia. Symmetrical smile. MUSCULOSKELETAL: Normal extremities with adequate strength and full range of motion. No lower extremity swelling or edema. No calf tenderness. LYMPHATICS: No significant lymphadenopathy is noted PSYCHIATRIC: Difficult to assess since the patient was unable to verbalize his thoughts Limitations: physical limitation Course Vital Signs 10/05/18 10/05/18 10/05/18 17:44 18:00 18:30 Temperature 97.9 F Pulse Rate 95 94 Respiratory 18 16 Rate Blood Pressure 161/102 137/92 137/92 O2 Sat by Pulse 95 88 L Oximetry 10/05/18 19:00 Temperature Pulse Rate 85 Respiratory 18 Rate Blood Pressure 137/92 O2 Sat by Pulse 95 Oximetry Medical Decision Making - Medical Decision Making EKG shows sinus rhythm with occasional PVC at a rate of 88 bpm AK interval is 208 QRSs 80 QT interval 370 QTC is 447. Patient's EKG shows no ST segment elevations or ST segment depressions. Chest x-ray showed no acute abnormality. CT of the brain showed no acute normalities. Patient was still exhibiting expressive aphasia. states he is not altered he just having difficulty talking. I spoke with oxygen Nerusu he agreed to admit the patient admitted the patient I wrote admitting orders. - Lab Data Result diagrams: 10/05/18 18:20 10/05/18 18:20 Lab Results 10/05/18 10/05/18 10/05/18 Range/Units 18:20 18:20 18:20 WBC 7.6 (3.8-10.6) k/uL RBC 4.16 L (4.30-5.90) m/uL Hgb 14.1 (13.0-17.5) gm/dL Hct 42.8 (39.0-53.0) % MCV 102.9 H (80.0-100.0) fL MCH 34.0 (25.0-35.0) pg MCHC 33.1 (31.0-37.0) g/dL RDW 18.1 H (11.5-15.5) % Plt Count 176 (150-450) k/uL Neutrophils % 75 % Lymphocytes % 12 % Monocytes % 7 % Eosinophils % 2 % Basophils % 0 % Neutrophils # 5.7 (1.3-7.7) k/uL Lymphocytes # 0.9 L (1.0-4.8) k/uL Monocytes # 0.6 (0-1.0) k/uL Eosinophils # 0.2 (0-0.7) k/uL Basophils # 0.0 (0-0.2) k/uL Anisocytosis Slight Macrocytosis Moderate PT (9.0-12.0) sec INR (<1.2) APTT (22.0-30.0) sec Sodium 139 (137-145) mmol/L Potassium 4.7 (3.5-5.1) mmol/L Chloride 104 (98-107) mmol/L Carbon Dioxide 25 (22-30) mmol/L Anion Gap 10 mmol/L BUN 32 H (9-20) mg/dL Creatinine 0.99 (0.66-1.25) mg/dL Est GFR (CKD-EPI)AfAm 83 (>60 ml/min/1.73 sqM) Est GFR (CKD-EPI)NonAf 72 (>60 ml/min/1.73 sqM) Glucose 110 H (74-99) mg/dL Calcium 10.2 (8.4-10.2) mg/dL Total Bilirubin 0.5 (0.2-1.3) mg/dL AST 45 (17-59) U/L ALT 50 (21-72) U/L Alkaline Phosphatase 83 (38-126) U/L Total Creatine Kinase 134 (55-170) U/L CK-MB (CK-2) 2.5 H (0.0-2.4) ng/mL CK-MB (CK-2) Rel Index 1.9 Troponin I <0.012 (0.000-0.034) ng/mL Total Protein 7.1 (6.3-8.2) g/dL Albumin 3.9 (3.5-5.0) g/dL Urine Color Urine Appearance (Clear) Urine pH (5.0-8.0) Ur Specific [place] (1.001-1.035) Urine Protein (Negative) Urine Glucose (UA) (Negative) Urine Ketones (Negative) Urine Blood (Negative) Urine Nitrite (Negative) Urine Bilirubin (Negative) Urine Urobilinogen (<2.0) mg/dL Ur Leukocyte Esterase (Negative) 10/05/18 10/05/18 Range/Units 18:20 19:00 WBC (3.8-10.6) k/uL RBC (4.30-5.90) m/uL Hgb (13.0-17.5) gm/dL Hct (39.0-53.0) % MCV (80.0-100.0) fL MCH (25.0-35.0) pg MCHC (31.0-37.0) g/dL RDW (11.5-15.5) % Plt Count (150-450) k/uL Neutrophils % % Lymphocytes % % Monocytes % % Eosinophils % % Basophils % % Neutrophils # (1.3-7.7) k/uL Lymphocytes # (1.0-4.8) k/uL Monocytes # (0-1.0) k/uL Eosinophils # (0-0.7) k/uL Basophils # (0-0.2) k/uL Anisocytosis Macrocytosis PT 10.4 (9.0-12.0) sec INR 1.1 (<1.2) APTT 25.0 (22.0-30.0) sec Sodium (137-145) mmol/L Potassium (3.5-5.1) mmol/L Chloride (98-107) mmol/L Carbon Dioxide (22-30) mmol/L Anion Gap mmol/L BUN (9-20) mg/dL Creatinine (0.66-1.25) mg/dL Est GFR (CKD-EPI)AfAm (>60 ml/min/1.73 sqM) Est GFR (CKD-EPI)NonAf (>60 ml/min/1.73 sqM) Glucose (74-99) mg/dL Calcium (8.4-10.2) mg/dL Total Bilirubin (0.2-1.3) mg/dL AST (17-59) U/L ALT (21-72) U/L Alkaline Phosphatase (38-126) U/L Total Creatine Kinase (55-170) U/L CK-MB (CK-2) (0.0-2.4) ng/mL CK-MB (CK-2) Rel Index Troponin I (0.000-0.034) ng/mL Total Protein (6.3-8.2) g/dL Albumin (3.5-5.0) g/dL Urine Color Yellow Urine Appearance Clear (Clear) Urine pH 6.0 (5.0-8.0) Ur Specific [place] 1.015 (1.001-1.035) Urine Protein Trace H (Negative) Urine Glucose (UA) Negative (Negative) Urine Ketones Negative (Negative) Urine Blood Negative (Negative) Urine Nitrite Negative (Negative) Urine Bilirubin Negative (Negative) Urine Urobilinogen <2.0 (<2.0) mg/dL Ur Leukocyte Esterase Negative (Negative) Disposition Clinical Impression: CVA (cerebral vascular accident) Disposition: ADMITTED IP TO THIS HOSP Referrals: Maggy Block MD [STAFF PHYSICIAN] - 1-2 days Time of Disposition: 20:07
[2018-10-05 18:39] LABS: Anisocytosis Slight; Basophils % (A) 0 %; Eosinophils # (A) 0.2 k/uL (0-0.7); Eosinophils % (A) 2 %; HCT 42.8 % (39.0-53.0); HGB 14.1 gm/dL (13.0-17.5); Lymphocytes # (A) 0.9 k/uL (1.0-4.8); Lymphocytes % (A) 12 %; MCHC 33.1 g/dL (31.0-37.0); MCV 102.9 fL (80.0-100.0); Macrocytosis Moderate; Mean Platelet Volume 7.5; Monocytes # (A) 0.6 k/uL (0-1.0); Monocytes % (A) 7 %; Neutrophils # (A) 5.7 k/uL (1.3-7.7); Neutrophils % (A) 75 %; Platelet Count 176 k/uL (150-450); RBC 4.16 m/uL (4.30-5.90); RDW 18.1 % (11.5-15.5); WBC 7.6 k/uL (3.8-10.6)
[2018-10-05 18:49] LABS: Albumin 3.9 g/dL (3.5-5.0); Calcium 10.2 mg/dL (8.4-10.2); Potassium 4.7 mmol/L (3.5-5.1); Total Bilirubin 0.5 mg/dL (0.2-1.3); Total Protein 7.1 g/dL (6.3-8.2)
--- NOTE | 2018-10-05 18:51 | CT ---
EXAMINATION: CT brain wo con DATE AND TIME: 10/05/2018 6:36 PM CLINICAL INDICATION: Neuro Deficits weakness, ams, hx of cva X 3 TECHNIQUE: Standard departmental protocol. COMPARISON: 06/23/2018 FINDINGS: The calvarium is intact. There is no intracranial hemorrhage. There is no intracranial mass or mass e ffect. Right paramidline parietal and occipital encephalomalacia noted, consistent with remote infarctions. However, no definite new intra-axial or extra-axial attenuation defect. The right paranasal sinuses completely opacified, as was seen on the prior study. Remainder of the paranasal sinuses, middle ear cavities, and mastoid sinus air cells are clear. The orbits are unremarkable. IMPRESSION: NO ACUTE PROCESS.
[2018-10-05 18:52] LABS: INR 1.1 (<1.2); Prothrombin Time 10.4 sec (9.0-12.0)
[2018-10-05 18:58] LABS: Creatine Kinase 134 U/L (55-170)
[2018-10-05 19:06] LABS: Appearance,Urine Clear (Clear); Bilirubin,Urine Negative (Negative); Blood,Urine Negative (Negative); Color,Urine Yellow; Glucose,Urine (UA) Negative (Negative); Ketones,Urine Negative (Negative); Leukocyte Esterase,Urine Negative (Negative); Nitrite,Urine Negative (Negative); Protein,Urine Trace (Negative); Specific Gravity,Urine 1.015 (1.001-1.035); Urobilinogen,Urine <2.0 mg/dL (<2.0)
[2018-10-05 19:10] LABS: Creatine Kinase MB 2.5 ng/mL (0.0-2.4); Troponin I <0.012 ng/mL (0.000-0.034)
--- NOTE | 2018-10-05 19:26 | XR ---
EXAMINATION: XR chest 2V DATE AND TIME: 10/05/2018 6:43 PM CLINICAL INDICATION: altered mental status TECHNIQUE: AP and lateral COMPARISON: 2018 FINDINGS: The lungs show marked obscuration of the pulmonary vasculature by a fine reticular pattern of increas ed density with areas of coalescent opacity particularly within the lung bases and particularly on th e left. These findings are consistent with a clinical diagnosis of cardiogenic interstitial and alveo lar phase pulmonary edema. The pleural spaces are negative. The cardiac silhouette is moderately enlarged. Aorta is ectatic. The skeletal structures show left posterior lateral linear array of callus formation consistent with remote rib fractures. And soft tissues are negative for acute findings. IMPRESSION: MARKED CARDIOGENIC PULMONARY EDEMA. NO ACUTE PROCESS.
[2018-10-05] MEDS ORDERED: ASPIRIN 325 MG TAB PO STA (20:08)
[2018-10-05] MEDS ORDERED: MORPHINE SULFATE 2 MG/ML SYRINGE IVP STA (23:44)
[2018-10-06 00:24] LABS: Cholesterol 163 mg/dL (<200); HDL Cholesterol 29 mg/dL (40-60); LDL Cholesterol,Calculated 100 mg/dL (0-99); Triglycerides 170 mg/dL (<150)
[2018-10-06] MEDS ORDERED: LISINOPRIL 2.5 MG TAB PO STA (00:56)
[2018-10-06] MEDS ORDERED: KETOROLAC 30 MG/ML 1 ML VIAL IVP ONE (00:59)
[2018-10-06] MEDS ORDERED: KETOROLAC 30 MG/ML 1 ML VIAL IVP SCH (01:00)
--- NOTE | 2018-10-06 01:45 | CT ---
EXAMINATION TYPE: CT brain wo con DATE OF EXAM: 10/06/2018 COMPARISON: 10/05/2018 HISTORY: Prior done 10/05/18 @1830, pt c/o increased GUZMAN CT DLP: 1516.40 mGycm Automated exposure control for dose reduction was used. FINDINGS: There is cerebral cortical atrophy. There is hypodensity in the right occipital lobe related to old c ortical infarct. There is no mass effect nor midline shift. There is no sign of intracranial hemorrha ge. There is opacification left maxillary sinus. I see no bone destruction. Calvarium is intact. Ther e is mucosal thickening and fluid level frontal sinus and anterior ethmoid sinus. IMPRESSION: THERE IS OLD RIGHT OCCIPITAL LOBE INFARCT UNCHANGED. SINUSITIS UNCHANGED. CEREBRAL ATROPHY. NO ACUTE INTRACRANIAL ABNORMALITY. NO HEMORRHAGE.
[2018-10-06 05:54] LABS: Glucose,Whole Blood 145 mg/dL (75-99)
[2018-10-06] MEDS: INSULIN ASPART 100 UNIT/ML 1 ML 10 ML VIAL SQ SCH ×4 (06:51→22:42)
[2018-10-06] MEDS ORDERED: LISINOPRIL 2.5 MG TAB PO SCH (09:00)
[2018-10-06] MEDS ORDERED: ASPIRIN 325 MG TAB PO SCH (09:00)
[2018-10-06] MEDS: CARVEDILOL 6.25 MG TAB PO SCH (09:59)
[2018-10-06] MEDS ORDERED: ALBUTEROL NEBULIZED 2.5 MG/3 ML INHALATION PRN (10:03)
--- NOTE | 2018-10-06 10:32 | P.HPIM ---
History of Present Illness 82-year-old gentleman came in with the complaints of difficulty with his speech progress it wasn't that is since yesterday morning. Patient appears to have moderate dysphagia appears to understand but unable to express verbally. I do not believe patient is confused but appears to more aphasia. Patient does have history of atrial fibrillation on anticoagulations with Eliquis and is also on 81 mg of aspirin patient does not have any history of coronary artery disease never had any stents in the past did have several vascular accident in the past CT of the head showed previous stroke in the occipital area. Patient had a recent echo cardiac exam which showed normal ejection fraction well abnormalities. Neurology was consulted PT, occupational therapy and speech therapy were consulted patient probably will need to inpatient rehabilitation. Patient appears to have ischemic stroke involving the frontoparietal lobe on the dominant side, specifically Broca's area. Patient has significant generalized weakness with of 4/5 strength in all 4 limbs patient is unable to poor provided much of the history although he is able to tell me has some epigastric abdominal pain which is probably stress ulceration or stress-related gastritis. 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 History of Any Multi-Drug Resistant Organisms: None Reported Past Surgical History: Orthopedic Surgery Additional Past Surgical History / Comment(s): both shoulders- L shoulder rotator cuff repair and R shoulder arthroscopy, L leg fib/tib fx with pinns and screws, plate to R arm, prostate seed implants x 2, R arm B-cell lymphoma removed , circumcision, EGD and colonoscopy Past Anesthesia/Blood Transfusion Reactions: No Reported Reaction Smoking Status: Former smoker - Past Family History Father Family Medical History: Hypertension Mother Family Medical History: Diabetes Mellitus Medications and Allergies Home Medications Medication Instructions Recorded Confirmed Type Allopurinol 300 mg PO DAILY 02/08/15 10/05/18 History Calcium Carbonate/Vitamin D3 1 tab PO DAILY 02/08/15 10/05/18 History [Calcium 600-Vit D3 400 Tablet] Multivitamin [Men's Multi-Vitamin] 1 tab PO DAILY 02/08/15 10/05/18 History Tiotropium 18 Mcg/Puff [Spiriva] 1 cap INHALATION RT-DAILY 12/25/15 10/05/18 History Albuterol Nebulized [Ventolin 2.5 mg INHALATION RT-QID PRN 02/10/18 10/05/18 History Nebulized] Budesonide-Formot 160-4.5 Mcg 2 puff INHALATION RT-BID 02/10/18 10/05/18 History [Symbicort 160-4.5 Mcg Inhaler] Carvedilol [Coreg] 6.25 mg PO DAILY 02/10/18 10/05/18 History FLUoxetine HCL [PROzac] See Taper PO DIRECTED 02/10/18 10/05/18 History Lisinopril [Zestril] 2.5 mg PO DAILY 02/10/18 10/05/18 History metFORMIN HCL 1,000 mg PO DAILY 02/10/18 10/05/18 History Apixaban [Eliquis] 5 mg PO BID 06/23/18 10/05/18 History Aspirin EC [Ecotrin Low Dose] 81 mg PO HS 06/23/18 10/05/18 History Gabapentin [Neurontin] 300 mg PO BID 06/23/18 10/05/18 History Ipratropium Nebulized [Atrovent 0.5 mg INHALATION RT-QID PRN 08/25/18 10/05/18 History Nebulized] Pravastatin Sodium [Pravachol] 20 mg PO HS 08/25/18 10/05/18 History Ascorbic Acid [Vitamin C] 1,000 mg PO DAILY 10/05/18 10/05/18 History Cider Vinegar [Apple Cider Vinegar] 300 mg PO DAILY 10/05/18 10/05/18 History Fish Oil/Dha/Epa [Fish Oil 1,200 1 cap PO HS 10/05/18 10/05/18 History mg Fish Oil] Furosemide [Lasix] 20 mg PO DAILY 10/05/18 10/05/18 History Insulin Aspart [NovoLOG Flexpen] 20 units SQ AC-TID 10/05/18 10/05/18 History Insulin Glargine,Hum.rec.anlog 55 unit SQ HS 10/05/18 10/05/18 History [Lantus Solostar] Naturna(Unknown) 1 tab PO HS 10/05/18 10/05/18 History Ubidecarenone [Co Q-10] 100 mg PO DAILY 10/05/18 10/05/18 History Allergies Allergy/AdvReac Type Severity Reaction Status Date / Time No Known Allergies Allergy Verified 10/05/18 17:58 Physical Exam Vitals: Vital Signs Temp Pulse Pulse Resp BP BP Pulse Ox 10/06/18 08:00 98.0 F 107 H 20 181/99 91 L 10/06/18 05:09 97.5 F L 87 18 158/96 94 L 10/06/18 01:08 176/100 10/06/18 00:39 92 166/93 92 L 10/05/18 23:17 81 20 141/70 93 L 10/05/18 21:34 83 16 164/74 95 10/05/18 20:19 86 18 133/87 10/05/18 20:13 83 16 133/87 95 10/05/18 19:00 85 18 137/92 95 10/05/18 18:30 137/92 10/05/18 18:00 94 16 137/92 88 L 10/05/18 17:44 97.9 F 95 18 161/102 95 Intake and Output 10/05/18 10/06/18 10/06/18 22:59 06:59 14:59 Intake Total 120 Output Total 610 Balance -610 120 Intake: Oral 120 Output: Urine 610 Uretheral (Du) 610 Other: Voiding Method Urinal Indwelling Catheter # Voids 0 0 Weight 125.645 kg 120.5 kg PHYSICAL EXAMINATION: GENERAL: The patient is alert to say aphasia, obese HEENT: Pupils are round and equally reacting to light. EOMI. No scleral icterus. No conjunctival pallor. Normocephalic, atraumatic. No pharyngeal erythema. No thyromegaly. CARDIOVASCULAR: S1 and S2 present. No murmurs, rubs, or gallops. PULMONARY: Chest is clear to auscultation, no wheezing or crackles. ABDOMEN: Soft, nontender, nondistended, normoactive bowel sounds. No palpable organomegaly. MUSCULOSKELETAL: No joint swelling or deformity. EXTREMITIES: No cyanosis, clubbing, or pedal edema. NEUROLOGICAL: Gross neurological examination did not reveal any focal deficits. Generalized weakness as mentioned above SKIN: No rashes. Results CBC & Chem 7: 10/05/18 18:20 10/05/18 18:20 Labs: Abnormal Lab Results - Last 24 Hours (Table) 10/05/18 10/05/18 10/05/18 Range/Units 18:20 18:20 18:20 RBC 4.16 L (4.30-5.90) m/uL MCV 102.9 H (80.0-100.0) fL RDW 18.1 H (11.5-15.5) % Lymphocytes # 0.9 L (1.0-4.8) k/uL BUN 32 H (9-20) mg/dL Glucose 110 H (74-99) mg/dL POC Glucose (mg/dL) (75-99) mg/dL CK-MB (CK-2) 2.5 H (0.0-2.4) ng/mL Triglycerides (<150) mg/dL LDL Cholesterol, Calc (0-99) mg/dL HDL Cholesterol (40-60) mg/dL Urine Protein (Negative) 10/05/18 10/05/18 10/06/18 Range/Units 18:20 19:00 05:52 RBC (4.30-5.90) m/uL MCV (80.0-100.0) fL RDW (11.5-15.5) % Lymphocytes # (1.0-4.8) k/uL BUN (9-20) mg/dL Glucose (74-99) mg/dL POC Glucose (mg/dL) 145 H (75-99) mg/dL CK-MB (CK-2) (0.0-2.4) ng/mL Triglycerides 170 H (<150) mg/dL LDL Cholesterol, Calc 100 H (0-99) mg/dL HDL Cholesterol 29 L (40-60) mg/dL Urine Protein Trace H (Negative) Thrombosis Risk Factor Assmnt - Choose All That Apply Any of the Below Risk Factors Present?: Yes Each Factor Represents 1 point: Medical pt on bed rest, Obesity (BMI >25), Swollen legs (current) Other Risk Factors: Yes Each Risk Factor Represents 3 Points: Age 75 years or older, History of DVT/PE Each Risk Factor Represents 5 Points: Stroke (< 1 month) Thrombosis Risk Factor Assessment Total Risk Factor Score: 14 Thrombosis Risk Factor Assessment Level: High Risk Assessment and Plan Plan: -Possible ischemic stroke involving the superolateral surface of left left side frontoparietal lobe. We'll order an MRI, neurology consultation physical therapy occupational therapy and speech therapy as mentioned above. Patient's LDL is 100 we'll increase the dose of statin. Carotid Doppler will be obtained recent echo cardiac rhythm showed normal ejection fraction no intracardiac thrombus. -Atrial fibrillation presently rate controlled chronic A. fib on anticoagulation. May not benefit from aspirin patient does not have any history of coronary artery disease -Hypertension -Depression -Type 2 diabetes mellitus hold off on metformin resume his insulin regimen but will lower the dose of Lantus until he resumes his regular diet. 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
[2018-10-06] MEDS: PANTOPRAZOLE 40 MG TABLET PO SCH (10:42)
[2018-10-06 11:21] LABS: Glucose,Whole Blood 185 mg/dL (75-99)
--- NOTE | 2018-10-06 12:09 | US ---
EXAMINATION TYPE: US carotid duplex BILAT DATE OF EXAM: 10/06/2018 COMPARISON: CTA 06/25/18 CLINICAL HISTORY: stroke. EXAM MEASUREMENTS: RIGHT: Peak Systolic Velocity (PSV) cm/sec ----- Right CCA: 50.5 ----- Right ICA: 75.8 ----- Right ECA: 90.5 ICA/CCA ratio: 1.5 RIGHT: End Diastole cm/sec ----- Right CCA: 13.1 ----- Right ICA: 12.8 ----- Right ECA: 7.7 LEFT: Peak Systolic Velocity (PSV) cm/sec ----- Left CCA: 114.1 ----- Left ICA: 118.3 ----- Left ECA: 112.1 ICA/CCA ratio: 1.0 LEFT: End Diastole cm/sec ----- Left CCA: 21.5 ----- Left ICA: 27.6 ----- Left ECA: 9.7 VERTEBRALS (direction of flow): Right Vertebral: Antegrade Left Vertebral: Antegrade Rhythm: Arrhythmia IMPRESSION: Suboptimal exam overall d/t patient's inability to cooperate. Large amounts of atheroscle rotic changes. Tortuous vessels. Criteria for Assigning % of Stenosis / Diameter reduction (Estimation based on the indirect measurements of the internal carotid artery velocities (ICA PSV). 1. Normal (no stenosis)=ICA PSV < 125 cm/s: ratio < 2.0: ICA EDV<40 cm/s. 2. Less than 50% stenosis=ICA PSV < 125 cm/s: ratio < 2.0: ICA EDV<40 cm/s. 3. 50 to 69% stenosis=ICA PSV of 125 to 230 cm/s: ration 2.0 ? 4.0: ICA EDV 40-100 cm/s. 4. Greater than 70% stenosis to near occlusion= ICA PSV > 230 cm/s: ratio > 4.0: ICA EDV > 100 cm/s. 5. Near occlusion= ICA PSV velocities may be low or undetectable: variable ratio and ICA EDV. 6. Total occlusion=unable to detect flow.
[2018-10-06] MEDS ORDERED: INSULIN ASPART 100 UNIT/ML 1 ML 10 ML VIAL SQ SCH (12:30)
[2018-10-06] MEDS: ACETAMINOPHEN TAB 325 MG TAB PO PRN (12:49)
[2018-10-06 14:56] LABS: Hemoglobin A1C 7.9 % (4.0-6.0)
[2018-10-06] MEDS ORDERED: HYDROcodone/APAP 5-325MG 1 EACH TAB PO STA (15:20)
--- NOTE | 2018-10-06 16:06 | MR ---
EXAMINATION TYPE: MR brain wo con DATE OF EXAM: 10/06/2018 COMPARISON: CT brain from earlier today and yesterday. HISTORY: CVA, confusion. Headache and aphasia. TECHNIQUE: Multiplanar, multisequence imaging of the brain and brainstem is performed without IV cont rast. FINDINGS: Diffusion weighted images demonstrate no evidence of a recent infarct or other diffusion abnormality. There is no worrisome extra-axial fluid collection. There is ventricular and sulcal prominence consis tent with diffuse cerebral atrophy there are focal and confluent areas of T2 hyperintensity in the de ep and periventricular white matter most prominent left paraventricular aspect presumed product of ch ronic small vessel ischemic change in patient this age. Old infarct involving medial right occipital lobe is redemonstrated. Midline structures demonstrate normal morphology. The craniocervical junction appears within normal limits. Normal vascular flow voids are present. Completely opacified left maxillary sinus is redemons trated. IMPRESSION: 1. No evidence of a recent infarct. 2. Moderate diffuse cerebral atrophy and chronic small vessel ischemic change as well as old right oc cipital lobe infarct and chronic left maxillary sinusitis all redemonstrated.
[2018-10-06 16:42] LABS: Glucose,Whole Blood 160 mg/dL (75-99)
[2018-10-06] MEDS ORDERED: HYDROcodone/APAP 5-325MG 1 EACH TAB PO PRN (18:14)
[2018-10-06 18:32] LABS: Urine Alcohol Negative (Negative); Urine Barbiturate Negative (Negative); Urine Cocaine Negative (Negative); Urine Methadone Negative (Negative); Urine Opiates Negative (Negative); Urine Phencyclidine Negative (Negative)
--- NOTE | 2018-10-06 20:14 | P.CNNES ---
History of Present Illness Consult date: 10/06/18 History of Present Illness: The patient is an 82-year-old man who has been at [facility] for 3 months and recently discharged from their 3 weeks ago. He has been staying at home with his . As a history of stroke. His first stroke apparently occurred 10 years ago and his symptoms resolved and then 2 years ago he had a major stroke involving his visual field and also caused bilateral leg weakness. The patient normally [facility] with ambulate with the scooter only. She is states that he's been complaining of headaches for 3 months. Yesterday he complained of a headache but he was also confused. She gave him some Tylenol. He has been getting Tylenol at the rehab center as well whenever he complained of headaches. She felt that he is his headache was more severe so she took him to the hospital. Today morning at also complained of some neck discomfort. So he wouldn't answer her questions as well as normal and she thought maybe it was because he was more confused next Patient was recently hospitalized at [facility] with COPD shortness of breath and tracheobronchitis. So had a recent CTA which showed 90% stenosis of the proximal left ICA. She was evaluated in May for this with vascular surgery. Patient had an MRI scan of the brain today showed an old right occipital infarct. No acute findings were seen. The patient also had a recent echocardiogram 2 months ago and was evaluated at that time by cardiology. 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 History of Any Multi-Drug Resistant Organisms: None Reported Past Surgical History: Orthopedic Surgery Additional Past Surgical History / Comment(s): both shoulders- L shoulder rotator cuff repair and R shoulder arthroscopy, L leg fib/tib fx with pinns and screws, plate to R arm, prostate seed implants x 2, R arm B-cell lymphoma removed , circumcision, EGD and colonoscopy Past Anesthesia/Blood Transfusion Reactions: No Reported Reaction Smoking Status: Former smoker - Past Family History Father Family Medical History: Hypertension Mother Family Medical History: Diabetes Mellitus Medications and Allergies Home Medications Medication Instructions Recorded Confirmed Type Allopurinol 300 mg PO DAILY 02/08/15 10/05/18 History Calcium Carbonate/Vitamin D3 1 tab PO DAILY 02/08/15 10/05/18 History [Calcium 600-Vit D3 400 Tablet] Multivitamin [Men's Multi-Vitamin] 1 tab PO DAILY 02/08/15 10/05/18 History Tiotropium 18 Mcg/Puff [Spiriva] 1 cap INHALATION RT-DAILY 12/25/15 10/05/18 History Albuterol Nebulized [Ventolin 2.5 mg INHALATION RT-QID PRN 02/10/18 10/05/18 History Nebulized] Budesonide-Formot 160-4.5 Mcg 2 puff INHALATION RT-BID 02/10/18 10/05/18 History [Symbicort 160-4.5 Mcg Inhaler] Carvedilol [Coreg] 6.25 mg PO DAILY 02/10/18 10/05/18 History FLUoxetine HCL [PROzac] See Taper PO DIRECTED 02/10/18 10/05/18 History Lisinopril [Zestril] 2.5 mg PO DAILY 02/10/18 10/05/18 History metFORMIN HCL 1,000 mg PO DAILY 02/10/18 10/05/18 History Apixaban [Eliquis] 5 mg PO BID 06/23/18 10/05/18 History Aspirin EC [Ecotrin Low Dose] 81 mg PO HS 06/23/18 10/05/18 History Gabapentin [Neurontin] 300 mg PO BID 06/23/18 10/05/18 History Ipratropium Nebulized [Atrovent 0.5 mg INHALATION RT-QID PRN 08/25/18 10/05/18 History Nebulized] Pravastatin Sodium [Pravachol] 20 mg PO HS 08/25/18 10/05/18 History Ascorbic Acid [Vitamin C] 1,000 mg PO DAILY 10/05/18 10/05/18 History Cider Vinegar [Apple Cider Vinegar] 300 mg PO DAILY 10/05/18 10/05/18 History Fish Oil/Dha/Epa [Fish Oil 1,200 1 cap PO HS 10/05/18 10/05/18 History mg Fish Oil] Furosemide [Lasix] 20 mg PO DAILY 10/05/18 10/05/18 History Insulin Aspart [NovoLOG Flexpen] 20 units SQ AC-TID 10/05/18 10/05/18 History Insulin Glargine,Hum.rec.anlog 55 unit SQ HS 10/05/18 10/05/18 History [Lantus Solostar] Naturna(Unknown) 1 tab PO HS 10/05/18 10/05/18 History Ubidecarenone [Co Q-10] 100 mg PO DAILY 10/05/18 10/05/18 History Allergies Allergy/AdvReac Type Severity Reaction Status Date / Time No Known Allergies Allergy Verified 10/05/18 17:58 Physical Examination - Vital Signs Vital Signs: Vital Signs Temp Pulse Pulse Resp BP BP Pulse Ox 10/06/18 16:00 98.4 F 52 L 16 149/79 94 L 10/06/18 12:00 98.1 F 91 20 155/111 93 L 10/06/18 08:00 98.0 F 107 H 20 181/99 91 L 10/06/18 05:09 97.5 F L 87 18 158/96 94 L 10/06/18 01:08 176/100 10/06/18 00:39 92 166/93 92 L 10/05/18 23:17 81 20 141/70 93 L 10/05/18 21:34 83 16 164/74 95 10/05/18 20:19 86 18 133/87 10/05/18 20:13 83 16 133/87 95 Intake and Output 10/06/18 10/06/18 10/06/18 06:59 14:59 22:59 Intake Total 120 Output Total 610 Balance -610 120 Intake: Oral 120 Output: Urine 610 Uretheral (Du) 610 Other: Voiding Method Urinal Indwelling Catheter Indwelling Catheter # Voids 0 2 Weight 120.5 kg - Constitutional General appearance: obese - EENT EENT: PERRL - Respiratory Respiratory: lungs clear - Cardiovascular Cardiovascular: regular rate - Neurologic Neurologic examination: Next Mental status : The patient was able to say his name. He did not follow commands. He did say a few words but there were no formed sentences. She was very tearful and crying. Next Cranial nerve examination: There is no facial asymmetry Motor examination: He had paraparesis both legs he was able to lift both arms up. Sensory examination and coordination and gait could not be tested Results - Laboratory Findings CBC and BMP: 10/05/18 18:20 10/05/18 18:20 Abnormal Lab Findings: Abnormal Labs 10/05/18 10/05/18 10/05/18 18:20 18:20 18:20 RBC 4.16 L MCV 102.9 H RDW 18.1 H Lymphocytes # 0.9 L BUN 32 H Glucose 110 H POC Glucose (mg/dL) Hemoglobin A1c CK-MB (CK-2) 2.5 H Triglycerides LDL Cholesterol, Calc HDL Cholesterol Urine Protein 10/05/18 10/05/18 10/05/18 18:20 18:20 19:00 RBC MCV RDW Lymphocytes # BUN Glucose POC Glucose (mg/dL) Hemoglobin A1c 7.9 H CK-MB (CK-2) Triglycerides 170 H LDL Cholesterol, Calc 100 H HDL Cholesterol 29 L Urine Protein Trace H 10/06/18 10/06/18 10/06/18 05:52 11:18 16:39 RBC MCV RDW Lymphocytes # BUN Glucose POC Glucose (mg/dL) 145 H 185 H 160 H Hemoglobin A1c CK-MB (CK-2) Triglycerides LDL Cholesterol, Calc HDL Cholesterol Urine Protein Assessment and Plan (1) CVA (cerebral vascular accident) Current Visit: Yes Status: Acute SNOMED Code(s): 513032787 (2) Headache Current Visit: Yes Status: Acute SNOMED Code(s): 82070210 (3) Altered mental status Current Visit: No Status: Acute SNOMED Code(s): 216437525 (4) Dementia, vascular, with depression Current Visit: Yes Status: Acute SNOMED Code(s): 864355439 Plan: The patient is an 82-year-old man with history of right occipital stroke was recently discharged from [facility] weeks ago. He has chronic headaches and had worsening of headache yesterday and presented to the emergency room with confusion altered mental status difficulty speaking and headache. His CAT scan of the brain showed old stroke. He had a MRI of the brain which showed old right occipital infarct. His made recent reduction in his antidepressant medication Prozac yesterday. Patient is very tearful anxious and confused. Recommend speech evaluation. Recommend vascular surgery consultation regarding carotid artery disease. The patient has been depressed since his stroke according to the family. Recommend psychiatric consultation. The patient's headache may be related to occipital neuralgia. Will check CT of the cervical spine and consider occipital nerve block
[2018-10-06 20:44] LABS: Glucose,Whole Blood 149 mg/dL (75-99)
--- NOTE | 2018-10-06 20:44 | CT ---
EXAMINATION TYPE: CT cervical spine wo con DATE OF EXAM: 10/06/2018 COMPARISON: None HISTORY: neck pain, recent cva CT DLP: 558.7 mGycm Automated exposure control for dose reduction was used. TECHNIQUE: CT scan of the cervical spine is obtained without contrast, axial images are obtained, sa gittal and coronal reformatted images are also reviewed. FINDINGS: Cervical vertebra have fairly normal alignment. There is mild spurring of the endplates in the lower cervical spine. There is mild narrowing of the disc spaces at C6-7. Facet joints are intact . There is mild hypertrophic facet arthropathy. The skull base appears intact. I see no bony destruct masha process. IMPRESSION: Minor degenerative disc changes in the cervical spine. No fracture.
[2018-10-06] MEDS ORDERED: INSULIN DETEMIR 100 UNIT/ML 10 ML VIAL SQ SCH ×2 (21:00)
[2018-10-06] MEDS ORDERED: PRAVASTATIN SODIUM 20 MG TAB PO SCH (21:00)
[2018-10-06] MEDS: SYMBICORT 160-4.5 MCG INHALER INHALATION SCH (21:18)
[2018-10-06] MEDS ORDERED: FLUoxetine HCL 20 MG CAP PO STA (22:37)
[2018-10-06] MEDS: GABAPENTIN 300 MG CAP PO SCH (22:42)
[2018-10-06] MEDS: APIXABAN 5 MG TAB PO SCH (22:42)
[2018-10-06] MEDS: LORazepam 0.5 MG TAB PO STA (23:16)
[2018-10-06] MEDS ORDERED: HALOPERIDOL LACTATE 5 MG/ML 1 ML VIAL IVP STA (23:25)
[2018-10-07 03:33] VITALS: RESP 20
[2018-10-07] MEDS: LORazepam 0.5 MG TAB PO STA (04:58)
[2018-10-07 05:53] LABS: Glucose,Whole Blood 152 mg/dL (75-99)
[2018-10-07] MEDS: PANTOPRAZOLE 40 MG TABLET PO SCH (06:19)
[2018-10-07] MEDS: INSULIN ASPART 100 UNIT/ML 1 ML 10 ML VIAL SQ SCH ×2 (06:23→12:21)
[2018-10-07] MEDS ORDERED: metFORMIN 500 MG TAB PO SCH (07:30)
[2018-10-07] MEDS: APIXABAN 5 MG TAB PO SCH (08:30)
[2018-10-07] MEDS: CARVEDILOL 6.25 MG TAB PO SCH (08:30)
[2018-10-07] MEDS: GABAPENTIN 300 MG CAP PO SCH (08:30)
[2018-10-07] MEDS: IPRATROPIUM 0.5 MG/2.5 ML NEBU INHALATION SCH ×3 (08:46→15:43)
[2018-10-07] MEDS: SYMBICORT 160-4.5 MCG INHALER INHALATION SCH (08:46)
[2018-10-07] MEDS ORDERED: FLUoxetine HCL 10 MG CAP PO SCH (09:00)
[2018-10-07] MEDS ORDERED: FLUoxetine HCL 20 MG CAP PO SCH (09:00)
[2018-10-07 11:45] LABS: Glucose,Whole Blood 176 mg/dL (75-99)
[2018-10-07 12:32] VITALS: BP 120/86; PULSE 96; TEMP 97.4
--- NOTE | 2018-10-07 13:14 | P.DS ---
Providers Date of admission: 10/05/18 20:08 Expected date of discharge: 10/07/18 Attending physician: Corky Florian Consults: 10/05/18 20:08 Consult Physician Routine Consulting Provider: Eliz Merchant Consult Reason/Comments: CVA Do you want consulting provider notified?: Yes 10/06/18 14:22 Consult Physician Routine Consulting Provider: Jose Salinas Consult Reason/Comments: eval for inpatient rehab Do you want consulting provider notified?: Yes 10/06/18 19:39 Consult Physician Routine Consulting Provider: Gregg Bello Consult Reason/Comments: depression Do you want consulting provider notified?: Yes Primary care physician: [facility] Hospital Course: Final Diagnoses: -Ruled out acute CVA, in a patient with worsening advanced dementia, superimposed major depression -Atrial fibrillation presently rate controlled chronic A. fib on anticoagulation. 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 Patient appears to have moderate dysphagia appears to understand but unable to express verbally. I do not believe patient is confused but appears to more aphasia. Patient does have history of atrial fibrillation on anticoagulations with Eliquis and is also on 81 mg of aspirin patient does not have any history of coronary artery disease never had any stents in the past did have several vascular accident in the past CT of the head showed previous stroke in the occipital area. Patient had a recent echo cardiac exam which showed normal ejection fraction well abnormalities. Neurology was consulted PT, occupational therapy and speech therapy were consulted patient probably will need to inpatient rehabilitation. Patient appears to have ischemic stroke involving the frontoparietal lobe on the dominant side, specifically Broca's area. Patient has significant generalized weakness with of 4/5 strength in all 4 limbs patient is unable to poor provided much of the history although he is able to tell me has some epigastric abdominal pain which is probably stress ulceration or stress-related gastritis. Evaluated by psychiatry and neurology. Neuro workup completed. Recent CTA which showed 90% stenosis of the proximal left ICA, had been evaluated by vascular surgery. Patient had an MRI scan of the brain today showed an old right occipital infarct. No acute findings were reported. recent echo cardiac rhythm showed normal ejection fraction no intracardiac thrombus.Patient's LDL is 100 we'll increase the dose of statin. Carotid Doppler suboptimal, related to patient uncooperative, reporting torturous vessels. Patient will be discharged to [facility] in a stable condition with guarded prognosis once cleared by neurology and psychiatry. EXAMINATION: GENERAL: The patient is alert to say aphasia, obese HEENT: Pupils are round and equally reacting to light. EOMI. No scleral icterus. No conjunctival pallor. Normocephalic, atraumatic. No pharyngeal erythema. No thyromegaly. CARDIOVASCULAR: S1 and S2 present. No murmurs, rubs, or gallops. PULMONARY: Chest is clear to auscultation, no wheezing or crackles. ABDOMEN: Soft, nontender, nondistended, normoactive bowel sounds. No palpable organomegaly. MUSCULOSKELETAL: No joint swelling or deformity. EXTREMITIES: No cyanosis, clubbing, or pedal edema. NEUROLOGICAL: Gross neurological examination did not reveal any focal deficits. Generalized weakness as mentioned above SKIN: No rashes. The impression and plan of care has been dictated as directed. : I performed a history and examination of this patient, discussed the same with the dictator. I agree with the dictator's note ,documented as a scribe. Any additional findings or plans will be noted. Time taken: 35 minutes Patient Condition at Discharge: Stable Plan - Discharge Summary Discharge Rx Participant: No New Discharge Prescriptions: New Acetaminophen Tab [Tylenol] 650 mg PO Q6HR PRN tab PRN Reason: Fever and/ or MILD Pain Insulin Detemir [Levemir] 30 unit SQ HS syr INSULIN LISPRO (HumaLOG) [humaLOG] 0 unit SQ ACHS #1 vial Pantoprazole [Protonix] 40 mg PO AC-BRKFST tablet. Continue Multivitamin [Men's Multi-Vitamin] 1 tab PO DAILY Calcium Carbonate/Vitamin D3 [Calcium 600-Vit D3 400 Tablet] 1 tab PO DAILY Tiotropium 18 Mcg/Puff [Spiriva] 1 cap INHALATION RT-DAILY Albuterol Nebulized [Ventolin Nebulized] 2.5 mg INHALATION RT-QID PRN PRN Reason: Shortness Of Breath Budesonide-Formot 160-4.5 Mcg [Symbicort 160-4.5 Mcg Inhaler] 2 puff INHALATION RT-BID Carvedilol [Coreg] 6.25 mg PO DAILY FLUoxetine HCL [PROzac] See Taper PO DIRECTED Apixaban [Eliquis] 5 mg PO BID Gabapentin [Neurontin] 300 mg PO BID Ipratropium Nebulized [Atrovent Nebulized] 0.5 mg INHALATION RT-QID PRN PRN Reason: Shortness Of Breath Ascorbic Acid [Vitamin C] 1,000 mg PO DAILY Fish Oil/Dha/Epa [Fish Oil 1,200 mg Fish Oil] 1 cap PO HS Furosemide [Lasix] 20 mg PO DAILY Changed Pravastatin Sodium [Pravachol] 40 mg PO HS #0 Discontinued Allopurinol 300 mg PO DAILY metFORMIN HCL 1,000 mg PO DAILY Lisinopril [Zestril] 2.5 mg PO DAILY Cider Vinegar [Apple Cider Vinegar] 300 mg PO DAILY Insulin Aspart [NovoLOG Flexpen] 20 units SQ AC-TID Insulin Glargine,Hum.rec.anlog [Lantus Solostar] 55 unit SQ HS Naturna(Unknown) 1 tab PO HS Ubidecarenone [Co Q-10] 100 mg PO DAILY Discharge Medication List Calcium Carbonate/Vitamin D3 [Calcium 600-Vit D3 400 Tablet] 1 tab PO DAILY 11/13 [History] Multivitamin [Men's Multi-Vitamin] 1 tab PO DAILY 02/08/15 [History] Tiotropium 18 Mcg/Puff [Spiriva] 1 cap INHALATION RT-DAILY 12/25/15 [History] Albuterol Nebulized [Ventolin Nebulized] 2.5 mg INHALATION RT-QID PRN 02/10/18 [ History] Budesonide-Formot 160-4.5 Mcg [Symbicort 160-4.5 Mcg Inhaler] 2 puff INHALATION RT-BID 02/10/18 [History] Carvedilol [Coreg] 6.25 mg PO DAILY 02/10/18 [History] FLUoxetine HCL [PROzac] See Taper PO DIRECTED 02/10/18 [History] Apixaban [Eliquis] 5 mg PO BID 06/23/18 [History] Gabapentin [Neurontin] 300 mg PO BID 06/23/18 [History] Ipratropium Nebulized [Atrovent Nebulized] 0.5 mg INHALATION RT-QID PRN [History] Ascorbic Acid [Vitamin C] 1,000 mg PO DAILY 10/05/18 [History] Fish Oil/Dha/Epa [Fish Oil 1,200 mg Fish Oil] 1 cap PO HS 10/05/18 [History] Furosemide [Lasix] 20 mg PO DAILY 10/05/18 [History] Acetaminophen Tab [Tylenol] 650 mg PO Q6HR PRN tab 10/07/18 [Rx] INSULIN LISPRO (HumaLOG) [humaLOG] 0 unit SQ ACHS #1 vial 10/07/18 [Rx] Insulin Detemir [Levemir] 30 unit SQ HS syr 10/07/18 [Rx] Pantoprazole [Protonix] 40 mg PO AC-BRKFST tablet. 10/07/18 [Rx] Pravastatin Sodium [Pravachol] 40 mg PO HS #0 10/07/18 [Rx] Follow up Appointment(s)/Referral(s): [facility], PCP [Other] - 3 Days Maggy Block MD [STAFF PHYSICIAN] - 1 Week (after dc from Rehab) Michelle Merchant MD [STAFF PHYSICIAN] - 2 Weeks Activity/Diet/Wound Care/Special Instructions: [facility] pending neurology and psychiatry clearance CBC, BMP in 3 days DIet: cardiac Activity:As tolerated
--- NOTE | 2018-10-07 15:15 | P.CN ---
Psychiatric Consult - . Consult date: 10/07/18 Consult:: 10/07/18 12:57 Depression confusion Assessment and Plan Assessment: The patient is an 82-year-old man who has been at [facility] for 3 months and recently discharged from their 3 weeks ago. He has been staying at home with his . As a history of stroke. His first stroke apparently occurred 10 years ago and his symptoms resolved and then 2 years ago he had a major stroke involving his visual field and also caused bilateral leg weakness. The patient normally [place] with ambulate with the scooter only. She is states that he's been complaining of headaches for 3 months. Yesterday he complained of a headache but he was also confused. She gave him some Tylenol. He has been getting Tylenol at the rehab center as well whenever he complained of headaches. She felt that he is his headache was more severe so she took him to the hospital. Today morning at also complained of some neck discomfort. So he wouldn't answer her questions as well as normal and she thought maybe it was because he was more confused next Patient was recently hospitalized at [facility] with COPD shortness of breath and tracheobronchitis. So had a recent CTA which showed 90% stenosis of the proximal left ICA. She was evaluated in May for this with vascular surgery. Patient had an MRI scan of the brain today showed an old right occipital infarct. No acute findings were seen. The patient also had a recent echocardiogram 2 months ago and was evaluated at that time by cardiology. The patient is an 82-year-old man with history of right occipital stroke was recently discharged from care home 3 weeks ago. He has chronic headaches and had worsening of headache yesterday and presented to the emergency room with confusion altered mental status difficulty speaking and headache. His CAT scan of the brain showed old stroke. He had a MRI of the brain which showed old right occipital infarct. His made recent reduction in his antidepressant medication, Prozac 10/05/2018. Patient is very tearful anxious and confused. Plan: Mental Status Examination - General Appearance: [disheveled, casual, appears younger than stated age] Speech/Language: [ slow, slurred] Attitude/Behavior: [withdrawn, indifferent] Mood: [depressed, anxious, hopelessness] Affect: [flat, incongruent, labile, blunted constricted] Orientation: [time, person, place situation] Thought Content: [wnl, Risk Factors: [suicidal (ideations, plan), and/or Homicidal (ideations, plan), other] Perception: [wnl, hallucinations (auditory, visual, tactile), other] Thought Processes: [ concrete, circumstantial, tangential, other] Concentration/Attention Span: [impaired] [Per observation and interview with the patient] Recent Memory: [ impaired] [ out of 3 in 3 minutes] Remote Memory: [ impaired] [past events, as related history] Intelligence: [below average, average, above average] [based on history, based on vocabulary, syntax, grammar, and content] Judgement: [ poor] [per patient's behavior/history of present illness] Insight: [ poor] [understanding severity of illness/history of present illness Psychiatric clinical impression: Post Stroke depression Psychiatric recommendations:dc prozac and use sertaline 25 mg po qhs for depression Thank you for the consult Gregg Bello D.O. PhD attending psychiatrist Konstantin Kruse Time with Patient: Less than 30
[2018-10-07] MEDS: ACETAMINOPHEN TAB 325 MG TAB PO PRN (15:53)
--- NOTE | 2018-10-12 12:00 | CDI ---
Documentation Clarification Form Date: 11/03/18 From: TOY Cline Phone: If you have question, contact Sherine Knight, at [phone] M-F 8:30 am to 6pm Admit Date: 10/05/2018 8:08:00 PM Patient Name: Andres Solis Visit Number: [id number] Discharge Date: 10/07/18 ATTENTION: The Clinical Documentation Specialists (CDI) and [facility] Coding Staff appreciate your assistance in clarifying documentation. Please respond to the clarification below the line at the bottom and electronically sign. The CDI & [facility] Coding staff will review the response and follow-up if needed. Please note: Queries are made part of the Legal Health Record. If you have any questions, please contact the author of this message via ITS. Dr. Florian, Mr. Solis was admitted with difficulty in speaking and weakness. He was worked up for a CVA and it is noted that he has had previous strokes. Recent CTA showed 90% stenosis of the proximal left ICA. Per the Discharge Summary, an acute CVA was ruled out and it is noted that he has worsening advanced dementia. Vascular dementia was documented throughout the chart. [email or web address] Vascular dementia results from conditions that damage your brain's blood vessels , reducing their ability to supply your brain with the amounts of nutrition and oxygen it needs to perform thought processes effectively. Common conditions that may lead to vascular dementia include: Stroke (infarction) blocking a brain artery. Strokes that block a brain artery usually cause a range of symptoms that may include vascular dementia. But some strokes don't cause any noticeable symptoms. These silent strokes still increase dementia risk. With both silent and apparent strokes, the risk of vascular dementia increases with the number of strokes that occur over time. One type of vascular dementia involving many strokes is called multi-infarct dementia. Narrowed or chronically damaged brain blood vessels. Conditions that narrow or inflict long-term damage on your brain blood vessels also can lead to vascular dementia. These conditions include the wear and tear associated with aging, high blood pressure, abnormal aging of blood vessels (atherosclerosis), diabetes , and brain hemorrhage. In your professional opinion, can you please specify the underlying cause of his vascular dementia? ICA stenosis Previous strokes Other, please specify Unable to determine __ Vascular dementia MTDD
== END 2018-10-07 16:20 | DRG 884 ==
LOC: EC 17:42 → 3SCARD 20:08
PROVIDERS: ADMIT Internal Medicine; ATTEND Internal Medicine
DX: F01.50 Vascular dementia, unspecified severity, without behavioral disturbance, psychotic disturbance, mood disturbance, and anxiety (principal); R47.01 Aphasia; R29.706 NIHSS score 6; E11.21 Type 2 diabetes mellitus with diabetic nephropathy; E11.22 Type 2 diabetes mellitus with diabetic chronic kidney disease; N18.2 Chronic kidney disease, stage 2 (mild); E78.5 Hyperlipidemia, unspecified; I48.2 Chronic atrial fibrillation; J44.9 Chronic obstructive pulmonary disease, unspecified; K27.9 Peptic ulcer, site unspecified, unspecified as acute or chronic, without hemorrhage or perforation; R33.9 Retention of urine, unspecified; R53.1 Weakness; H53.9 Unspecified visual disturbance; G47.30 Sleep apnea, unspecified; I12.9 Hypertensive chronic kidney disease with stage 1 through stage 4 chronic kidney disease, or unspecified chronic kidney disease; I49.3 Ventricular premature depolarization; K21.9 Gastro-esophageal reflux disease without esophagitis; M10.9 Gout, unspecified; R13.10 Dysphagia, unspecified; R20.0 Anesthesia of skin; R20.2 Paresthesia of skin; F32.9 Major depressive disorder, single episode, unspecified; E66.01 Morbid (severe) obesity due to excess calories; I65.22 Occlusion and stenosis of left carotid artery; Z68.35 Body mass index [BMI] 35.0-35.9, adult; I69.398 Other sequelae of cerebral infarction; Z79.899 Other long term (current) drug therapy; Z79.01 Long term (current) use of anticoagulants; Z79.82 Long term (current) use of aspirin; Z79.4 Long term (current) use of insulin; Z79.51 Long term (current) use of inhaled steroids; Z82.49 Family history of ischemic heart disease and other diseases of the circulatory system; Z83.3 Family history of diabetes mellitus; Z85.46 Personal history of malignant neoplasm of prostate; Z85.72 Personal history of non-Hodgkin lymphomas; Z86.711 Personal history of pulmonary embolism; Z86.718 Personal history of other venous thrombosis and embolism; Z87.11 Personal history of peptic ulcer disease; Z87.891 Personal history of nicotine dependence; Z99.89 Dependence on other enabling machines and devices; Z92.21 Personal history of antineoplastic chemotherapy; Z92.3 Personal history of irradiation; Z98.890 Other specified postprocedural states
CPT/HCPCS: 36415; 70450; 70551; 71046; 72125; 80053; 80061; 80306; 81003; 82550; 82553; 82607; 83036; 84484; 85025; 85610; 85730; 93005; 93880; 94640; 94760; 96360; 96361; 99285

== ENCOUNTER 2018-12-30 15:48 | Emergency (ER) | payer MEDICARE ==
[2018-12-30 16:04] VITALS: TEMP 97.1
[2018-12-30] MEDS ORDERED: SODIUM CHLORIDE 0.9% 1,000 ML IV STA (16:56)
--- NOTE | 2018-12-30 17:00 | ED ---
SOB HPI - General Chief Complaint: Shortness of Breath Stated Complaint: FERMIN, poss aspiration Time Seen by Provider: 12/30/18 16:30 Source: patient, EMS, RN notes reviewed Mode of arrival: EMS Limitations: altered mental status - History of Present Illness Initial Comments: This 83-year-old male with a history of COPD history of stroke with the right upper lower extremity have a lesion who is here for evaluation of possible aspiration. Per his he was getting a nasal lavage a possibly aspirated. He was evaluated by a home nurse who found that he had rhonchorous breath sounds consistent with aspiration. Additionally he also currently has a urinary tract infection which he has not had antibiotics for yet due to weather conditions in the delivery of medications is not happening yet. Most information is obtained from family members. Patient states he does not have any pain right now or shortness of breath right now. MD Complaint: shortness of breath - Related Data Home Medications Medication Instructions Recorded Confirmed Calcium Carbonate/Vitamin D3 1 tab PO DAILY 02/08/15 12/30/18 [Calcium 600-Vit D3 400 Tablet] Multivitamin [Men's Multi-Vitamin] 1 tab PO DAILY 02/08/15 12/30/18 Tiotropium 18 Mcg/Puff [Spiriva] 1 cap INHALATION RT-DAILY 12/25/15 12/30/18 Albuterol Nebulized [Ventolin 2.5 mg INHALATION RT-QID PRN 02/10/18 12/30/18 Nebulized] Budesonide-Formot 160-4.5 Mcg 2 puff INHALATION RT-BID PRN 02/10/18 12/30/18 [Symbicort 160-4.5 Mcg Inhaler] Carvedilol [Coreg] 12.5 mg PO DAILY 02/10/18 12/30/18 FLUoxetine HCL [PROzac] 40 mg PO DAILY 02/10/18 12/30/18 Apixaban [Eliquis] 5 mg PO BID 06/23/18 12/30/18 Gabapentin [Neurontin] 300 mg PO BID 06/23/18 12/30/18 Ipratropium Nebulized [Atrovent 0.5 mg INHALATION RT-QID PRN 08/25/18 12/30/18 Nebulized 0.2 MG/ML] Ascorbic Acid [Vitamin C] 1,000 mg PO DAILY 10/05/18 12/30/18 Furosemide [Lasix] 20 mg PO DAILY 10/05/18 12/30/18 Allopurinol [Zyloprim] 300 mg PO DAILY 12/30/18 12/30/18 Aspirin EC [Ecotrin Low Dose] 81 mg PO HS 12/30/18 12/30/18 Cider Vinegar [Apple Cider Vinegar] 300 mg PO DAILY 12/30/18 12/30/18 Fish Oil(Unknown) 1 cap PO HS 12/30/18 12/30/18 INSULIN LISPRO (HumaLOG) [humaLOG] 20 unit SQ AC-TID 12/30/18 12/30/18 Insulin Detemir [Levemir] 55 unit SQ HS 12/30/18 12/30/18 Lisinopril [Zestril] 2.5 mg PO DAILY 12/30/18 12/30/18 Naturna(Unknown) 1 tab PO HS 12/30/18 12/30/18 Pravastatin Sodium [Pravachol] 20 mg PO HS 12/30/18 12/30/18 Ubidecarenone [Co Q-10] 100 mg PO DAILY 12/30/18 12/30/18 metFORMIN HCL 1,000 mg PO DAILY 12/30/18 12/30/18 Previous Rx's Medication Instructions Recorded Oseltamivir [Tamiflu] 75 mg PO DAILY #7 cap 12/30/18 Allergies Allergy/AdvReac Type Severity Reaction Status Date / Time No Known Allergies Allergy Verified 12/30/18 16:40 Review of Systems ROS Statement: Those systems with pertinent positive or pertinent negative responses have been documented in the HPI. ROS Other: All systems not noted in ROS Statement are negative. 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 History of Any Multi-Drug Resistant Organisms: None Reported Past Surgical History: Orthopedic Surgery Additional Past Surgical History / Comment(s): both shoulders- L shoulder rotator cuff repair and R shoulder arthroscopy, L leg fib/tib fx with pinns and screws, plate to R arm, prostate seed implants x 2, R arm B-cell lymphoma removed , circumcision, EGD and colonoscopy Past Anesthesia/Blood Transfusion Reactions: No Reported Reaction Past Psychological History: No Psychological Hx Reported Smoking Status: Former smoker - Past Family History Father Family Medical History: Hypertension Mother Family Medical History: Diabetes Mellitus General Exam - General Exam Comments Initial Comments: This is a well-developed well-nourished awake alert male who was demonstrating no Limitations: altered mental status General appearance: alert, in no apparent distress Head exam: Present: atraumatic, normocephalic, normal inspection Eye exam: Present: normal appearance, PERRL, EOMI. Absent: scleral icterus, conjunctival injection, periorbital swelling ENT exam: Present: normal exam, mucous membranes moist Neck exam: Present: normal inspection, full ROM, other (No stridor JVD or bruits ). Absent: tenderness, meningismus, lymphadenopathy Respiratory exam: Present: wheezes (Occasional wheezes), decreased breath sounds. Absent: respiratory distress, rales, rhonchi, stridor Cardiovascular Exam: Present: regular rate, normal rhythm, normal heart sounds. Absent: systolic murmur, diastolic murmur, rubs, gallop, clicks GI/Abdominal exam: Present: soft, normal bowel sounds. Absent: distended, tenderness, guarding, rebound, rigid, bruit, hernia Extremities exam: Present: normal inspection, normal capillary refill, other ( Right upper and lower extremity hemiplegia). Absent: full ROM, tenderness, pedal edema, joint swelling, calf tenderness Back exam: Present: normal inspection Neurological exam: Present: alert, oriented X3, CN II-XII intact, motor sensory deficit (As noted above) Psychiatric exam: Present: normal affect, normal mood Skin exam: Present: warm, dry, intact, normal color. Absent: rash Course Vital Signs 12/30/18 12/30/18 12/30/18 15:59 17:15 17:26 Temperature 97.1 F L Pulse Rate 73 71 68 Respiratory 18 18 18 Rate Blood Pressure 108/64 108/72 115/74 O2 Sat by Pulse 95 100 96 Oximetry 12/30/18 17:59 Temperature Pulse Rate 71 Respiratory 18 Rate Blood Pressure 110/70 O2 Sat by Pulse 96 Oximetry - Reevaluation(s) Reevaluation #1: 12/30/18 19:40 I did discuss findings with the patient family patient has been exposed to influenza and family concerned about this in light of his symptoms. His initial influenza test is negative. Other than demonstrating find depletion he has home right fibrosis that is known. He will be discharged on appropriate treatment. Medical Decision Making - Medical Decision Making I did send the patient no clinical evidence of aspiration. Lung sounds are consistent with pulmonary fibrosis no other findings. He is afebrile. He has been exposed to influenza. He will be placed on appropriate medication - Lab Data Result diagrams: 12/30/18 17:10 12/30/18 17:10 Lab Results 12/30/18 12/30/18 12/30/18 Range/Units 17:10 17:10 17:10 WBC 9.3 (3.8-10.6) k/uL RBC 4.54 (4.30-5.90) m/uL Hgb 14.6 (13.0-17.5) gm/dL Hct 45.7 (39.0-53.0) % MCV 100.7 H (80.0-100.0) fL MCH 32.2 (25.0-35.0) pg MCHC 32.0 (31.0-37.0) g/dL RDW 16.8 H (11.5-15.5) % Plt Count 164 (150-450) k/uL Neutrophils % 75 % Lymphocytes % 10 % Monocytes % 8 % Eosinophils % 3 % Basophils % 0 % Neutrophils # 7.0 (1.3-7.7) k/uL Lymphocytes # 1.0 (1.0-4.8) k/uL Monocytes # 0.8 (0-1.0) k/uL Eosinophils # 0.3 (0-0.7) k/uL Basophils # 0.0 (0-0.2) k/uL Anisocytosis Slight Macrocytosis Slight PT (9.0-12.0) sec INR (<1.2) APTT (22.0-30.0) sec Sodium 139 (137-145) mmol/L Potassium 4.8 (3.5-5.1) mmol/L Chloride 102 (98-107) mmol/L Carbon Dioxide 28 (22-30) mmol/L Anion Gap 9 mmol/L BUN 39 H (9-20) mg/dL Creatinine 0.84 (0.66-1.25) mg/dL Est GFR (CKD-EPI)AfAm >90 (>60 ml/min/1.73 sqM) Est GFR (CKD-EPI)NonAf 82 (>60 ml/min/1.73 sqM) Glucose 126 H (74-99) mg/dL Calcium 10.5 H (8.4-10.2) mg/dL Magnesium 2.0 (1.6-2.3) mg/dL Total Bilirubin 0.5 (0.2-1.3) mg/dL AST 32 (17-59) U/L ALT 39 (21-72) U/L Alkaline Phosphatase 65 (38-126) U/L Total Creatine Kinase 67 (55-170) U/L CK-MB (CK-2) 1.6 (0.0-2.4) ng/mL CK-MB (CK-2) Rel Index 2.4 Troponin I <0.012 (0.000-0.034) ng/mL NT-Pro-B Natriuret Pep pg/mL Total Protein 7.0 (6.3-8.2) g/dL Albumin 3.9 (3.5-5.0) g/dL Urine Color Urine Appearance (Clear) Urine pH (5.0-8.0) Ur Specific [place] (1.001-1.035) Urine Protein (Negative) Urine Glucose (UA) (Negative) Urine Ketones (Negative) Urine Blood (Negative) Urine Nitrite (Negative) Urine Bilirubin (Negative) Urine Urobilinogen (<2.0) mg/dL Ur Leukocyte Esterase (Negative) Influenza Type A RNA (Not Detectd) Influenza Type B (PCR) (Not Detectd) 12/30/18 12/30/18 12/30/18 Range/Units 17:10 17:10 17:47 WBC (3.8-10.6) k/uL RBC (4.30-5.90) m/uL Hgb (13.0-17.5) gm/dL Hct (39.0-53.0) % MCV (80.0-100.0) fL MCH (25.0-35.0) pg MCHC (31.0-37.0) g/dL RDW (11.5-15.5) % Plt Count (150-450) k/uL Neutrophils % % Lymphocytes % % Monocytes % % Eosinophils % % Basophils % % Neutrophils # (1.3-7.7) k/uL Lymphocytes # (1.0-4.8) k/uL Monocytes # (0-1.0) k/uL Eosinophils # (0-0.7) k/uL Basophils # (0-0.2) k/uL Anisocytosis Macrocytosis PT 10.3 (9.0-12.0) sec INR 1.0 (<1.2) APTT 25.6 (22.0-30.0) sec Sodium (137-145) mmol/L Potassium (3.5-5.1) mmol/L Chloride (98-107) mmol/L Carbon Dioxide (22-30) mmol/L Anion Gap mmol/L BUN (9-20) mg/dL Creatinine (0.66-1.25) mg/dL Est GFR (CKD-EPI)AfAm (>60 ml/min/1.73 sqM) Est GFR (CKD-EPI)NonAf (>60 ml/min/1.73 sqM) Glucose (74-99) mg/dL Calcium (8.4-10.2) mg/dL Magnesium (1.6-2.3) mg/dL Total Bilirubin (0.2-1.3) mg/dL AST (17-59) U/L ALT (21-72) U/L Alkaline Phosphatase (38-126) U/L Total Creatine Kinase (55-170) U/L CK-MB (CK-2) (0.0-2.4) ng/mL CK-MB (CK-2) Rel Index Troponin I (0.000-0.034) ng/mL NT-Pro-B Natriuret Pep 151 pg/mL Total Protein (6.3-8.2) g/dL Albumin (3.5-5.0) g/dL Urine Color Urine Appearance (Clear) Urine pH (5.0-8.0) Ur Specific [place] (1.001-1.035) Urine Protein (Negative) Urine Glucose (UA) (Negative) Urine Ketones (Negative) Urine Blood (Negative) Urine Nitrite (Negative) Urine Bilirubin (Negative) Urine Urobilinogen (<2.0) mg/dL Ur Leukocyte Esterase (Negative) Influenza Type A RNA Not Detected (Not Detectd) Influenza Type B (PCR) Not Detected (Not Detectd) 12/30/18 Range/Units Unknown WBC (3.8-10.6) k/uL RBC (4.30-5.90) m/uL Hgb (13.0-17.5) gm/dL Hct (39.0-53.0) % MCV (80.0-100.0) fL MCH (25.0-35.0) pg MCHC (31.0-37.0) g/dL RDW (11.5-15.5) % Plt Count (150-450) k/uL Neutrophils % % Lymphocytes % % Monocytes % % Eosinophils % % Basophils % % Neutrophils # (1.3-7.7) k/uL Lymphocytes # (1.0-4.8) k/uL Monocytes # (0-1.0) k/uL Eosinophils # (0-0.7) k/uL Basophils # (0-0.2) k/uL Anisocytosis Macrocytosis PT (9.0-12.0) sec INR (<1.2) APTT (22.0-30.0) sec Sodium (137-145) mmol/L Potassium (3.5-5.1) mmol/L Chloride (98-107) mmol/L Carbon Dioxide (22-30) mmol/L Anion Gap mmol/L BUN (9-20) mg/dL Creatinine (0.66-1.25) mg/dL Est GFR (CKD-EPI)AfAm (>60 ml/min/1.73 sqM) Est GFR (CKD-EPI)NonAf (>60 ml/min/1.73 sqM) Glucose (74-99) mg/dL Calcium (8.4-10.2) mg/dL Magnesium (1.6-2.3) mg/dL Total Bilirubin (0.2-1.3) mg/dL AST (17-59) U/L ALT (21-72) U/L Alkaline Phosphatase (38-126) U/L Total Creatine Kinase (55-170) U/L CK-MB (CK-2) (0.0-2.4) ng/mL CK-MB (CK-2) Rel Index Troponin I (0.000-0.034) ng/mL NT-Pro-B Natriuret Pep pg/mL Total Protein (6.3-8.2) g/dL Albumin (3.5-5.0) g/dL Urine Color Yellow Urine Appearance Clear (Clear) Urine pH 6.0 (5.0-8.0) Ur Specific [place] 1.010 (1.001-1.035) Urine Protein Negative (Negative) Urine Glucose (UA) Negative (Negative) Urine Ketones Negative (Negative) Urine Blood Negative (Negative) Urine Nitrite Negative (Negative) Urine Bilirubin Negative (Negative) Urine Urobilinogen <2.0 (<2.0) mg/dL Ur Leukocyte Esterase Negative (Negative) Influenza Type A RNA (Not Detectd) Influenza Type B (PCR) (Not Detectd) - Radiology Data Radiology results: report reviewed (I did review the imaging and report evidence of chronic fibrosis no acute findings.), image reviewed Disposition Clinical Impression: Pulmonary fibrosis, Exposure to influenza, Feared condition not demonstrated Disposition: HOME SELF-CARE Condition: Good Instructions (If sedation given, give patient instructions): Influenza (ED) Prescriptions: Oseltamivir [Tamiflu] 75 mg PO DAILY #7 cap Is patient prescribed a controlled substance at d/c from ED?: No Referrals: [facility],Clinic [Primary Care Provider] - 1-2 days
[2018-12-30 17:23] LABS: Anisocytosis Slight; Basophils % (A) 0 %; Eosinophils # (A) 0.3 k/uL (0-0.7); Eosinophils % (A) 3 %; HCT 45.7 % (39.0-53.0); HGB 14.6 gm/dL (13.0-17.5); Lymphocytes % (A) 10 %; MCH 32.2 pg (25.0-35.0); MCV 100.7 fL (80.0-100.0); Macrocytosis Slight; Mean Platelet Volume 7.7; Monocytes # (A) 0.8 k/uL (0-1.0); Monocytes % (A) 8 %; Neutrophils % (A) 75 %; Platelet Count 164 k/uL (150-450); RBC 4.54 m/uL (4.30-5.90); RDW 16.8 % (11.5-15.5); WBC 9.3 k/uL (3.8-10.6)
[2018-12-30 17:33] LABS: Partial Thromboplastin Time 25.6 sec (22.0-30.0); Prothrombin Time 10.3 sec (9.0-12.0)
[2018-12-30 17:35] LABS: Appearance,Urine Clear (Clear); Bilirubin,Urine Negative (Negative); Blood,Urine Negative (Negative); Color,Urine Yellow; Glucose,Urine (UA) Negative (Negative); Ketones,Urine Negative (Negative); Leukocyte Esterase,Urine Negative (Negative); Nitrite,Urine Negative (Negative); Protein,Urine Negative (Negative); Urobilinogen,Urine <2.0 mg/dL (<2.0)
[2018-12-30 17:36] LABS: Potassium 4.8 mmol/L (3.5-5.1)
[2018-12-30 17:37] LABS: ALT 39 U/L (21-72); AST 32 U/L (17-59); Albumin 3.9 g/dL (3.5-5.0); Alkaline Phosphatase 65 U/L (38-126); Anion Gap 9 mmol/L; Blood Urea Nitrogen 39 mg/dL (9-20); Calcium 10.5 mg/dL (8.4-10.2); Carbon Dioxide 28 mmol/L (22-30); Chloride 102 mmol/L (98-107); Glucose 126 mg/dL (74-99); Sodium 139 mmol/L (137-145); Total Bilirubin 0.5 mg/dL (0.2-1.3)
[2018-12-30 17:41] LABS: Creatine Kinase 67 U/L (55-170)
[2018-12-30 17:53] LABS: Creatine Kinase MB 1.6 ng/mL (0.0-2.4); Troponin I <0.012 ng/mL (0.000-0.034)
--- NOTE | 2018-12-30 18:28 | XR ---
EXAMINATION TYPE: XR chest 2V DATE OF EXAM: 12/30/2018 COMPARISON: 10/05/2018 HISTORY: Difficulty breathing TECHNIQUE: Frontal and lateral views of the chest are obtained. FINDINGS: There is coarsening of the pulmonary interstitial markings. There is no definite pleural e ffusion. Heart is enlarged. There is old left-sided healed rib fracture. IMPRESSION: Pulmonary interstitial fibrosis. I see no pleural fluid to suggest heart failure. No cade nge compared to old exam.
[2018-12-30] MEDS ORDERED: OSELTAMIVIR 75 MG CAP PO STA (19:21)
[2018-12-30 19:41] VITALS: BP 107/65; PULSE 68; RESP 16
== END 2018-12-30 20:46 | disposition home or self-care (01) ==
LOC: SUPCPDRO 15:48 → EC 15:48
DX: J84.10 Pulmonary fibrosis, unspecified (principal); Z20.828 Contact with and (suspected) exposure to other viral communicable diseases; J44.9 Chronic obstructive pulmonary disease, unspecified; I12.9 Hypertensive chronic kidney disease with stage 1 through stage 4 chronic kidney disease, or unspecified chronic kidney disease; E11.22 Type 2 diabetes mellitus with diabetic chronic kidney disease; N18.9 Chronic kidney disease, unspecified; M10.9 Gout, unspecified; E78.5 Hyperlipidemia, unspecified; G47.30 Sleep apnea, unspecified; Z99.89 Dependence on other enabling machines and devices; Z85.46 Personal history of malignant neoplasm of prostate; Z85.72 Personal history of non-Hodgkin lymphomas; Z92.21 Personal history of antineoplastic chemotherapy; Z87.891 Personal history of nicotine dependence; Z86.73 Personal history of transient ischemic attack (TIA), and cerebral infarction without residual deficits; Z86.718 Personal history of other venous thrombosis and embolism; Z87.01 Personal history of pneumonia (recurrent); Z79.01 Long term (current) use of anticoagulants; Z79.82 Long term (current) use of aspirin; Z79.4 Long term (current) use of insulin; Z79.899 Other long term (current) drug therapy
CPT/HCPCS: 36415; 71046; 80053; 81003; 82550; 82553; 83735; 83880; 84484; 85025; 85610; 85730; 87040; 87502; 93005; 99285

== ENCOUNTER 2019-04-02 16:29 | Observation (INO) | payer OTHER, MEDICARE ==
[2019-04-02] MEDS ORDERED: SODIUM CHLORIDE 0.9% 1,000 ML IV STA (16:56)
--- NOTE | 2019-04-02 17:07 | ED ---
General Adult HPI - General Chief complaint: GI Bleed Stated complaint: GI BLEED Time Seen by Provider: 04/02/19 16:33 Source: patient, EMS Mode of arrival: EMS Limitations: physical limitation - History of Present Illness Initial comments: Patient is a 83-year-old male presenting for GI bleed. The patient states that earlier today, he started having a little bit of bright red blood and then throughout the day, he started having much more significant amount of blood in his stool. He denies any abdominal pain or nausea/vomiting/diarrhea. He denies any chest pain or shortness of breath but states that he does take elk was secondary to a pulmonary embolism. He states that he has never had a GI bleed before and also denies any lightheadedness or shortness of breath. - Related Data Home Medications Medication Instructions Recorded Confirmed Calcium Carbonate/Vitamin D3 1 tab PO DAILY 02/08/15 04/02/19 [Calcium 600-Vit D3 400 Tablet] Multivitamin [Men's Multi-Vitamin] 1 tab PO DAILY 02/08/15 04/02/19 Tiotropium 18 Mcg/Puff [Spiriva] 1 cap INHALATION RT-DAILY 12/25/15 04/02/19 Albuterol Nebulized [Ventolin 2.5 mg INHALATION RT-QID PRN 02/10/18 04/02/19 Nebulized] Budesonide-Formot 160-4.5 Mcg 2 puff INHALATION RT-BID PRN 02/10/18 04/02/19 [Symbicort 160-4.5 Mcg Inhaler] FLUoxetine HCL [PROzac] 40 mg PO DAILY 02/10/18 04/02/19 Apixaban [Eliquis] 5 mg PO BID 06/23/18 04/02/19 Gabapentin [Neurontin] 300 mg PO BID 06/23/18 04/02/19 Ipratropium Nebulized [Atrovent 0.5 mg INHALATION RT-QID PRN 08/25/18 04/02/19 Nebulized 0.2 MG/ML] Ascorbic Acid [Vitamin C] 1,000 mg PO DAILY 10/05/18 04/02/19 Furosemide [Lasix] 20 mg PO DAILY 10/05/18 04/02/19 Allopurinol [Zyloprim] 300 mg PO DAILY 12/30/18 04/02/19 Aspirin EC [Ecotrin Low Dose] 81 mg PO HS 12/30/18 04/02/19 Cider Vinegar [Apple Cider Vinegar] 300 mg PO DAILY 12/30/18 04/02/19 Fish Oil(Unknown) 1 cap PO HS 12/30/18 04/02/19 INSULIN LISPRO (HumaLOG) [humaLOG] 20 unit SQ AC-TID 12/30/18 04/02/19 Insulin Detemir (Levemir) [Levemir] 55 unit SQ HS 12/30/18 04/02/19 Lisinopril [Zestril] 2.5 mg PO DAILY 12/30/18 04/02/19 Naturna(Unknown) 1 tab PO HS 12/30/18 04/02/19 Pravastatin Sodium [Pravachol] 20 mg PO HS 12/30/18 04/02/19 Ubidecarenone [Co Q-10] 100 mg PO DAILY 12/30/18 04/02/19 metFORMIN HCL 1,000 mg PO DAILY 12/30/18 04/02/19 Carvedilol [Coreg] 6.25 mg PO DAILY 04/02/19 04/02/19 Colchicine 0.6 mg PO DAILY PRN 04/02/19 04/02/19 Colchicine 0.6 mg PO Q1H PRN 04/02/19 04/02/19 Allergies Allergy/AdvReac Type Severity Reaction Status Date / Time No Known Allergies Allergy Verified 04/02/19 17:45 Review of Systems ROS Statement: Those systems with pertinent positive or pertinent negative responses have been documented in the HPI. Constitutional: Negative for chills, fatigue and fever. HENT: Negative for congestion. Respiratory: Negative for chest tightness, shortness of breath and wheezing. Negative for cough Cardiovascular: Negative for chest pain and palpitations. Gastrointestinal: Negative for abdominal pain. Negative for abdominal distention, diarrhea, nausea and vomiting. Positive for blood in stool Genitourinary: Negative for dysuria. Musculoskeletal: Negative for back pain, neck pain and neck stiffness. Skin: Negative for color change. Neurological: Negative for dizziness, speech difficulty, weakness and light- headedness. Psychiatric/Behavioral: Negative for agitation and confusion. Negative for anxiety ROS Other: All systems not noted in ROS Statement are negative. 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 History of Any Multi-Drug Resistant Organisms: None Reported Past Surgical History: Orthopedic Surgery Additional Past Surgical History / Comment(s): both shoulders- L shoulder rotator cuff repair and R shoulder arthroscopy, L leg fib/tib fx with pinns and screws, plate to R arm, prostate seed implants x 2, R arm B-cell lymphoma berto tara , circumcision, EGD and colonoscopy Past Anesthesia/Blood Transfusion Reactions: No Reported Reaction Past Psychological History: No Psychological Hx Reported Smoking Status: Former smoker - Past Family History Father Family Medical History: Hypertension Mother Family Medical History: Diabetes Mellitus General Exam - General Exam Comments Initial Comments: Constitutional: Pt appears well-developed and well-nourished. No distress. Head: Normocephalic and atraumatic. Eyes: EOM are normal. Neck: Normal range of motion. Neck supple. Cardiovascular: Normal rate, regular rhythm, S1 normal, S2 normal and normal heart sounds. Exam reveals no gallop and no friction rub. No murmur heard. Pulmonary/Chest: Effort normal and breath sounds normal. No tachypnea and no bradypnea. No respiratory distress. No wheezes or rales noted. Abdominal: Soft. Bowel sounds are normal. Pt exhibits no shifting dullness, no distension, no pulsatile liver, no fluid wave, no abdominal bruit and no ascit es. There is no rigidity, no rebound, no guarding, no tenderness at McBurney's point and negative Austin's sign. There is no tenderness. Musculoskeletal: Normal range of motion. Neurological: Pt is alert and oriented to person, place, and time. No cranial nerve deficit. Skin: Skin is warm and dry. No rash noted. Pt is not diaphoretic. No erythema. No pallor. Psychiatric: Pt has a normal mood and affect. Pt behavior is normal. Thought content normal. Limitations: physical limitation Course Vital Signs 04/02/19 04/02/19 16:36 18:00 Temperature 97.7 F Pulse Rate 77 77 Respiratory 20 18 Rate Blood Pressure 117/73 119/77 O2 Sat by Pulse 95 95 Oximetry EKG Findings - EKG Comments: EKG Findings:: EKG shows sinus rhythm with first-degree AV block. Rate of 77 bpm, UT interval 234, QRS 80, QTC 436. There are no significant ST depressions or elevations. Medical Decision Making - Medical Decision Making Laboratory studies showed that hemoglobin was stable at 14.2 and from a cardiac standpoint, there is no evidence of end organ dysfunction as troponin was not elevated. However, patient was guaiac positive with gross blood found on digital rectal exam. Therefore, it was thought that it would be unsafe to send the patient home.Explained all labs and diagnostic test results and that we will admit patient to hospital. Pt is agreeable to plan and case has been discussed with Dr. Buckley and they agree to accept the pt. - Lab Data Result diagrams: 04/02/19 17:10 04/02/19 17:10 Lab Results 04/02/19 04/02/19 04/02/19 Range/Units 17:10 17:10 17:10 WBC 7.0 (3.8-10.6) k/uL RBC 4.45 (4.30-5.90) m/uL Hgb 14.2 (13.0-17.5) gm/dL Hct 43.7 (39.0-53.0) % MCV 98.1 (80.0-100.0) fL MCH 31.9 (25.0-35.0) pg MCHC 32.5 (31.0-37.0) g/dL RDW 19.7 H (11.5-15.5) % Plt Count 162 (150-450) k/uL Neutrophils % 73 % Lymphocytes % 12 % Monocytes % 8 % Eosinophils % 3 % Basophils % 0 % Neutrophils # 5.1 (1.3-7.7) k/uL Lymphocytes # 0.9 L (1.0-4.8) k/uL Monocytes # 0.6 (0-1.0) k/uL Eosinophils # 0.2 (0-0.7) k/uL Basophils # 0.0 (0-0.2) k/uL Anisocytosis Slight Macrocytosis Slight PT 10.7 (9.0-12.0) sec INR 1.0 (<1.2) APTT 25.7 (22.0-30.0) sec Sodium 139 (137-145) mmol/L Potassium 4.6 (3.5-5.1) mmol/L Chloride 100 (98-107) mmol/L Carbon Dioxide 28 (22-30) mmol/L Anion Gap 11 mmol/L BUN 51 H (9-20) mg/dL Creatinine 0.81 (0.66-1.25) mg/dL Est GFR (CKD-EPI)AfAm >90 (>60 ml/min/1.73 sqM) Est GFR (CKD-EPI)NonAf 83 (>60 ml/min/1.73 sqM) Glucose 120 H (74-99) mg/dL Calcium 10.4 H (8.4-10.2) mg/dL Total Bilirubin 0.4 (0.2-1.3) mg/dL AST 31 (17-59) U/L ALT 39 (21-72) U/L Alkaline Phosphatase 59 (38-126) U/L Troponin I (0.000-0.034) ng/mL Total Protein 6.9 (6.3-8.2) g/dL Albumin 4.0 (3.5-5.0) g/dL Stool Occult Blood (Negative) Blood Type Blood Type Recheck Antibody Screen Spec Expiration Date 04/02/19 04/02/19 04/02/19 Range/Units 17:10 17:10 18:19 WBC (3.8-10.6) k/uL RBC (4.30-5.90) m/uL Hgb (13.0-17.5) gm/dL Hct (39.0-53.0) % MCV (80.0-100.0) fL MCH (25.0-35.0) pg MCHC (31.0-37.0) g/dL RDW (11.5-15.5) % Plt Count (150-450) k/uL Neutrophils % % Lymphocytes % % Monocytes % % Eosinophils % % Basophils % % Neutrophils # (1.3-7.7) k/uL Lymphocytes # (1.0-4.8) k/uL Monocytes # (0-1.0) k/uL Eosinophils # (0-0.7) k/uL Basophils # (0-0.2) k/uL Anisocytosis Macrocytosis PT (9.0-12.0) sec INR (<1.2) APTT (22.0-30.0) sec Sodium (137-145) mmol/L Potassium (3.5-5.1) mmol/L Chloride (98-107) mmol/L Carbon Dioxide (22-30) mmol/L Anion Gap mmol/L BUN (9-20) mg/dL Creatinine (0.66-1.25) mg/dL Est GFR (CKD-EPI)AfAm (>60 ml/min/1.73 sqM) Est GFR (CKD-EPI)NonAf (>60 ml/min/1.73 sqM) Glucose (74-99) mg/dL Calcium (8.4-10.2) mg/dL Total Bilirubin (0.2-1.3) mg/dL AST (17-59) U/L ALT (21-72) U/L Alkaline Phosphatase (38-126) U/L Troponin I <0.012 (0.000-0.034) ng/mL Total Protein (6.3-8.2) g/dL Albumin (3.5-5.0) g/dL Stool Occult Blood Positive (Negative) Blood Type A Positive Blood Type Recheck No Antibody Screen NEGATIVE Spec Expiration Date 04/05/2019 - 2310 Disposition Clinical Impression: GI bleed Disposition: ADMITTED IP TO THIS [facility] Condition: Good Referrals: [facility],Clinic [Primary Care Provider] - 1-2 days Decision to Admit Reason: Admit from EC Decision Date: 04/02/19 Decision Time: 18:53
[2019-04-02 17:50] LABS: ALT 39 U/L (21-72); AST 31 U/L (17-59); Alkaline Phosphatase 59 U/L (38-126); Anion Gap 11 mmol/L; Blood Urea Nitrogen 51 mg/dL (9-20); Calcium 10.4 mg/dL (8.4-10.2); Carbon Dioxide 28 mmol/L (22-30); Chloride 100 mmol/L (98-107); Glucose 120 mg/dL (74-99); Potassium 4.6 mmol/L (3.5-5.1); Sodium 139 mmol/L (137-145); Total Bilirubin 0.4 mg/dL (0.2-1.3); Total Protein 6.9 g/dL (6.3-8.2)
[2019-04-02 17:55] LABS: Partial Thromboplastin Time 25.7 sec (22.0-30.0); Prothrombin Time 10.7 sec (9.0-12.0)
[2019-04-02 18:06] LABS: Anisocytosis Slight; Basophils % (A) 0 %; Eosinophils # (A) 0.2 k/uL (0-0.7); Eosinophils % (A) 3 %; HCT 43.7 % (39.0-53.0); HGB 14.2 gm/dL (13.0-17.5); Lymphocytes # (A) 0.9 k/uL (1.0-4.8); Lymphocytes % (A) 12 %; MCH 31.9 pg (25.0-35.0); MCHC 32.5 g/dL (31.0-37.0); MCV 98.1 fL (80.0-100.0); Macrocytosis Slight; Mean Platelet Volume 9.2; Monocytes # (A) 0.6 k/uL (0-1.0); Monocytes % (A) 8 %; Neutrophils # (A) 5.1 k/uL (1.3-7.7); Neutrophils % (A) 73 %; Platelet Count 162 k/uL (150-450); RBC 4.45 m/uL (4.30-5.90); RDW 19.7 % (11.5-15.5)
[2019-04-02] MEDS ORDERED: NALOXONE 0.4 MG/ML 1 ML VIAL IV PRN (18:49)
[2019-04-02] MEDS ORDERED: IPRATROPIUM 0.5 MG/2.5 ML NEBU INHALATION PRN (20:36)
[2019-04-02] MEDS ORDERED: ALBUTEROL NEBULIZED 2.5 MG/3 ML INHALATION PRN (20:36)
[2019-04-02] MEDS ORDERED: SYMBICORT 160-4.5 MCG INHALER INHALATION PRN (20:36)
[2019-04-02] MEDS: INSULIN DETEMIR (LEVEMIR) 100 UNIT/ML SYR SQ SCH (22:04)
[2019-04-02] MEDS: PANTOPRAZOLE 40 MG/10 ML VIAL IVP SCH (22:05)
[2019-04-02] MEDS: GABAPENTIN 300 MG CAP PO SCH (22:05)
[2019-04-02] MEDS: PRAVASTATIN SODIUM 20 MG TAB PO SCH (22:07)
[2019-04-03 04:43] LABS: Anisocytosis Slight; HCT 43.1 % (39.0-53.0); HGB 14.2 gm/dL (13.0-17.5); Macrocytosis Slight; Mean Platelet Volume 8.4; Platelet Count 127 k/uL (150-450); RBC 4.31 m/uL (4.30-5.90); RDW 18.6 % (11.5-15.5); WBC 6.1 k/uL (3.8-10.6)
[2019-04-03 07:14] LABS: Glucose,Whole Blood 139 mg/dL (75-99)
[2019-04-03] MEDS: INSULIN ASPART (NovoLOG) 100 UNIT/ML VIAL SQ SCH ×4 (08:03→20:17)
[2019-04-03] MEDS: ALLOPURINOL 300 MG TAB PO SCH (08:05)
[2019-04-03] MEDS: GABAPENTIN 300 MG CAP PO SCH ×2 (08:05→20:17)
[2019-04-03] MEDS: FLUoxetine HCL 20 MG CAP PO SCH (08:05)
[2019-04-03] MEDS: MULTIVITAMINS, THERA 1 EACH TAB PO SCH (08:05)
[2019-04-03] MEDS: LISINOPRIL 2.5 MG TAB PO SCH (08:05)
[2019-04-03] MEDS: CARVEDILOL 6.25 MG TAB PO SCH (08:05)
[2019-04-03] MEDS: FUROSEMIDE 40 MG TAB PO SCH ×2 (08:05→17:27)
[2019-04-03] MEDS: ASCORBIC ACID 500 MG TAB PO SCH (08:06)
[2019-04-03] MEDS: CALCIUM CARB-VIT D 500MG-200UN 1 EACH TAB PO SCH (08:06)
[2019-04-03] MEDS: PANTOPRAZOLE 40 MG/10 ML VIAL IVP SCH ×2 (08:18→20:16)
[2019-04-03] MEDS ORDERED: NON-FORMULARY DRUG (Ubidecarenone [Co Q-10] 100 MG) PO SCH (09:00)
[2019-04-03] MEDS: IPRATROPIUM 0.5 MG/2.5 ML NEBU INHALATION SCH ×4 (09:15→21:01)
--- NOTE | 2019-04-03 09:29 | CONS ---
CONSULTATION REQUESTING PHYSICIAN: [facility] REASON FOR ADMISSION: Rectal bleeding. HISTORY OF PRESENT ILLNESS: The patient is an 83-year-old pleasant white male who came to the Emergency Room because of rectal bleeding. As per the ER notes, the patient apparently had a small amount of bright red blood in the stool followed by 2 small episodes of bright red blood per rectum. He was brought to the emergency room by his . The patient is a poor historian because of dementia. Since being in the hospital, as per the nursing staff, no bleeding noted. He denies any abdominal pain. Reports no nausea, vomiting. His initial hemoglobin in the ER he was 14.8 g/dL. He had a colonoscopy in 2016 that showed scattered sigmoid diverticulosis and small internal hemorrhoids. PAST MEDICAL HISTORY: Significant for hypertension, diabetes mellitus, dementia, history of DVT, GERD, hyperlipidemia, osteoarthritis, CVA in the past, chronic kidney disease, history of lymphoma, history of chemo in the past. PAST SURGICAL HISTORY: Left shoulder repair, colonoscopy in 2016 as mentioned above. MEDICATIONS AT HOME: Include Coreg, colchicine, Pravachol, Levemir, Zestril, Humalog, aspirin, Zyloprim, Lasix, Atrovent, Neurontin, Eliquis, Prozac, Ventolin, Spiriva, multivitamin. SOCIAL HISTORY: He denies any smoking or alcohol use. FAMILY HISTORY: Father has hypertension. Mother has diabetes mellitus. REVIEW OF SYSTEMS: The patient is a poor historian. CARDIOPULMONARY: She denies any chest pain or shortness of breath. GENITOURINARY: No dysuria or hematuria. MUSCULOSKELETAL: Unremarkable. SKIN: Unremarkable. ENDOCRINE: Unremarkable. PSYCHIATRIC: Unremarkable. NEUROLOGICAL: Unremarkable. ENT/VISION: Unremarkable. CONSTITUTIONAL: No recent weight loss. No fever, chills, or night sweats. PHYSICAL EXAMINATION: He appears comfortable. No apparent distress. VITAL SIGNS: Stable. Blood pressure is 119/77, pulse is 77, temperature 98. HEENT: Examination unremarkable. Conjunctivae pink. Sclerae anicteric. Oral cavity, no lesions. NECK: No JVD or lymph node enlargement. CHEST: Clear to auscultation. HEART: Regular rate and rhythm. ABDOMEN: Soft. It was nontender, nondistended. Bowel sounds are positive. No organomegaly. EXTREMITIES: No pedal edema. SKIN: No rashes. NEUROLOGIC: Alert and oriented x3. No focal deficits. LABS: Done yesterday WBC 7, hemoglobin 14.2, platelets are normal. A repeat hemoglobin is 14.2. BUN was 51, creatinine was 0.81. Stool Hemoccult was positive. IMPRESSION: 1. Rectal bleeding that started yesterday morning had small streaks of blood initially followed by 2 episodes of bright red blood per rectum. No further bleeding since being in the hospital. Hemoglobin stable at 14.2 g/dL. Last colonoscopy in 2016 showed small internal hemorrhoids and sigmoid diverticulosis. 2. History of DVT for which she is on Eliquis and has been on hold since yesterday. 3. Increased BUN but normal creatinine. Cannot rule out possible upper GI source of bleeding. 4. Mild dementia. 5. Diabetes mellitus. RECOMMENDATIONS: 1. Start him on a clear liquid diet. 2. CBC q.12h. 3. Monitor closely and continue to hold Eliquis. 4. No plans for any endoscopy intervention at the present time as it appears that we are dealing with bleeding from internal hemorrhoids and he did have a colonoscopy as mentioned above 3 years ago that showed diverticulosis and hemorrhoids. 5. However, if he continues to have any active bleeding, further recommendations will be made. 6. At this time, we will continue to observe him closely. Thank you for this consultation. MMEDIEL / IJN: [id number] /
[2019-04-03 10:55] LABS: Glucose,Whole Blood 215 mg/dL (75-99)
[2019-04-03 13:50] LABS: Anisocytosis Slight; HCT 44.4 % (39.0-53.0); HGB 14.9 gm/dL (13.0-17.5); MCH 32.3 pg (25.0-35.0); MCHC 33.5 g/dL (31.0-37.0); MCV 96.3 fL (80.0-100.0); Macrocytosis Slight; Platelet Count 157 k/uL (150-450); RBC 4.61 m/uL (4.30-5.90); RDW 19.6 % (11.5-15.5); WBC 7.4 k/uL (3.8-10.6)
[2019-04-03 17:02] LABS: Glucose,Whole Blood 193 mg/dL (75-99)
[2019-04-03 20:12] LABS: Glucose,Whole Blood 221 mg/dL (75-99)
[2019-04-03] MEDS: INSULIN DETEMIR (LEVEMIR) 100 UNIT/ML SYR SQ SCH (20:16)
[2019-04-03] MEDS: PRAVASTATIN SODIUM 20 MG TAB PO SCH (20:17)
[2019-04-03 22:24] LABS: Anisocytosis Slight; HCT 42.2 % (39.0-53.0); HGB 13.7 gm/dL (13.0-17.5); MCH 32.2 pg (25.0-35.0); MCHC 32.5 g/dL (31.0-37.0); MCV 98.9 fL (80.0-100.0); Macrocytosis Slight; Mean Platelet Volume 8.6; Platelet Count 145 k/uL (150-450); RBC 4.26 m/uL (4.30-5.90); RDW 18.8 % (11.5-15.5); WBC 5.7 k/uL (3.8-10.6)
[2019-04-04 06:52] LABS: Glucose,Whole Blood 126 mg/dL (75-99)
[2019-04-04] MEDS: INSULIN ASPART (NovoLOG) 100 UNIT/ML VIAL SQ SCH ×4 (07:41→20:54)
[2019-04-04] MEDS: IPRATROPIUM 0.5 MG/2.5 ML NEBU INHALATION SCH ×4 (08:29→20:11)
[2019-04-04] MEDS: PANTOPRAZOLE 40 MG/10 ML VIAL IVP SCH ×2 (09:07→20:54)
[2019-04-04] MEDS: CARVEDILOL 6.25 MG TAB PO SCH (09:08)
[2019-04-04] MEDS: MULTIVITAMINS, THERA 1 EACH TAB PO SCH (09:08)
[2019-04-04] MEDS: ALLOPURINOL 300 MG TAB PO SCH (09:08)
[2019-04-04] MEDS: LISINOPRIL 2.5 MG TAB PO SCH (09:08)
[2019-04-04] MEDS: GABAPENTIN 300 MG CAP PO SCH ×2 (09:08→20:54)
[2019-04-04] MEDS: CALCIUM CARB-VIT D 500MG-200UN 1 EACH TAB PO SCH (09:08)
[2019-04-04] MEDS: FUROSEMIDE 40 MG TAB PO SCH ×2 (09:08→16:04)
[2019-04-04] MEDS: ASCORBIC ACID 500 MG TAB PO SCH (09:08)
[2019-04-04] MEDS: FLUoxetine HCL 20 MG CAP PO SCH (09:09)
[2019-04-04] MEDS ORDERED: ACETAMINOPHEN TAB 325 MG TAB PO PRN (10:55)
[2019-04-04 11:19] LABS: Anisocytosis Slight; HCT 41.9 % (39.0-53.0); HGB 13.7 gm/dL (13.0-17.5); MCH 32.4 pg (25.0-35.0); MCHC 32.8 g/dL (31.0-37.0); MCV 98.6 fL (80.0-100.0); Macrocytosis Slight; Mean Platelet Volume 8.4; Platelet Count 156 k/uL (150-450); RBC 4.24 m/uL (4.30-5.90); RDW 18.5 % (11.5-15.5); WBC 6.7 k/uL (3.8-10.6)
[2019-04-04 11:46] LABS: Glucose,Whole Blood 187 mg/dL (75-99)
--- NOTE | 2019-04-04 11:46 | P.HPIM ---
History of Present Illness H&P Date: 04/03/19 Chief Complaint: Rectal bleed 83-year-old male presenting for GI bleed. The patient states that earlier today, he started having a little bit of bright red blood and then throughout the day, he started having much more significant amount of blood in his stool. He denies any abdominal pain or nausea/vomiting/diarrhea. He denies any chest pain or shortness of breath but states that he does take elk was secondary to a pulmonary embolism. He states that he has never had a GI bleed before and also denies any lightheadedness or shortness of breath. Patient has history of dementia so most of the records is obtained from the chart; patient has not had any bloody bowel movement since admission; hemoglobin remained stable at 14.8 Patient did have colonoscopy done in 2016 showing scattered sigmoid diverticulosis and internal hemorrhoids Review of Systems Constitutional: Negative for chills, fatigue and fever. HENT: Negative for congestion. Respiratory: Negative for chest tightness, shortness of breath and wheezing. Negative for cough Cardiovascular: Negative for chest pain and palpitations. Gastrointestinal: Negative for abdominal pain. Negative for abdominal distention, diarrhea, nausea and vomiting. Positive for blood in stool Genitourinary: Negative for dysuria. Musculoskeletal: Negative for back pain, neck pain and neck stiffness. Skin: Negative for color change. Neurological: Negative for dizziness, speech difficulty, weakness and light- headedness. Psychiatric/Behavioral: Negative for agitation and confusion. 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 History of Any Multi-Drug Resistant Organisms: None Reported Past Surgical History: Orthopedic Surgery Additional Past Surgical History / Comment(s): both shoulders- L shoulder rotator cuff repair and R shoulder arthroscopy, L leg fib/tib fx with pinns and screws, plate to R arm, prostate seed implants x 2, R arm B-cell lymphoma removed , circumcision, EGD and colonoscopy Past Anesthesia/Blood Transfusion Reactions: No Reported Reaction Past Psychological History: No Psychological Hx Reported Additional Psychological History / Comment(s): Pt lives at home with his . Pt wheelchairbound. Pt has hospital bed. Pt no longer drives. Pt has home care - [facility], who comes in and helps pt with ADLs and also does some housework. Smoking Status: Former smoker Past Alcohol Use History: None Reported Additional Past Alcohol Use History / Comment(s): unk when he started smoking but quit 50 years ago(1967) Past Drug Use History: None Reported Additional Drug Use History / Comment(s): pt quit smoking 50 years ago - Past Family History Father Family Medical History: Hypertension Mother Family Medical History: Diabetes Mellitus Medications and Allergies Home Medications Medication Instructions Recorded Confirmed Type Calcium Carbonate/Vitamin D3 1 tab PO DAILY 02/08/15 04/02/19 History [Calcium 600-Vit D3 400 Tablet] Multivitamin [Men's Multi-Vitamin] 1 tab PO DAILY 02/08/15 04/02/19 History Tiotropium 18 Mcg/Puff [Spiriva] 1 cap INHALATION RT-DAILY 12/25/15 04/02/19 History Albuterol Nebulized [Ventolin 2.5 mg INHALATION RT-QID PRN 02/10/18 04/02/19 History Nebulized] Budesonide-Formot 160-4.5 Mcg 2 puff INHALATION RT-BID PRN 02/10/18 04/02/19 History [Symbicort 160-4.5 Mcg Inhaler] FLUoxetine HCL [PROzac] 40 mg PO DAILY 02/10/18 04/02/19 History Apixaban [Eliquis] 5 mg PO BID 06/23/18 04/02/19 History Gabapentin [Neurontin] 300 mg PO BID 06/23/18 04/02/19 History Ipratropium Nebulized [Atrovent 0.5 mg INHALATION RT-QID PRN 08/25/18 04/02/19 History Nebulized 0.2 MG/ML] Ascorbic Acid [Vitamin C] 1,000 mg PO DAILY 10/05/18 04/02/19 History Furosemide [Lasix] 20 mg PO DAILY 10/05/18 04/02/19 History Allopurinol [Zyloprim] 300 mg PO DAILY 12/30/18 04/02/19 History Aspirin EC [Ecotrin Low Dose] 81 mg PO HS 12/30/18 04/02/19 History Cider Vinegar [Apple Cider Vinegar] 300 mg PO DAILY 12/30/18 04/02/19 History Fish Oil(Unknown) 1 cap PO HS 12/30/18 04/02/19 History INSULIN LISPRO (HumaLOG) [humaLOG] 20 unit SQ AC-TID 12/30/18 04/02/19 History Insulin Detemir (Levemir) [Levemir] 55 unit SQ HS 12/30/18 04/02/19 History Lisinopril [Zestril] 2.5 mg PO DAILY 12/30/18 04/02/19 History Naturna(Unknown) 1 tab PO HS 12/30/18 04/02/19 History Pravastatin Sodium [Pravachol] 20 mg PO HS 12/30/18 04/02/19 History Ubidecarenone [Co Q-10] 100 mg PO DAILY 12/30/18 04/02/19 History metFORMIN HCL 1,000 mg PO DAILY 12/30/18 04/02/19 History Carvedilol [Coreg] 6.25 mg PO DAILY 04/02/19 04/02/19 History Colchicine 0.6 mg PO DAILY PRN 04/02/19 04/02/19 History Colchicine 0.6 mg PO Q1H PRN 04/02/19 04/02/19 History Allergies Allergy/AdvReac Type Severity Reaction Status Date / Time No Known Allergies Allergy Verified 04/02/19 17:45 Physical Exam Vitals: Vital Signs Temp Pulse Pulse Resp BP BP Pulse Ox 04/03/19 09:25 84 04/03/19 09:15 84 04/03/19 05:00 97.5 F L 82 16 122/60 92 L 04/02/19 20:10 98.3 F 77 16 114/71 92 L 04/02/19 19:41 98.1 F 80 18 105/76 95 04/02/19 18:00 77 18 119/77 95 04/02/19 16:36 97.7 F 77 20 117/73 95 Intake and Output 04/02/19 04/03/19 04/03/19 22:59 06:59 14:59 Other: Voiding Method Urinal Diaper # Voids 1 1 Weight 127.006 kg PHYSICAL EXAMINATION: GENERAL: The patient is alert and oriented x3, not in any acute distress. Well developed, well nourished. HEENT: Pupils are round and equally reacting to light. EOMI. No scleral icterus. No conjunctival pallor. Normocephalic, atraumatic. No pharyngeal erythema. No thyromegaly. CARDIOVASCULAR: S1 and S2 present. No murmurs, rubs, or gallops. PULMONARY: Chest is clear to auscultation, no wheezing or crackles. ABDOMEN: Soft, nontender, nondistended, normoactive bowel sounds. No palpable organomegaly. MUSCULOSKELETAL: No joint swelling or deformity. EXTREMITIES: No cyanosis, clubbing, or pedal edema. NEUROLOGICAL: Gross neurological examination did not reveal any focal deficits. SKIN: No rashes. Results CBC & Chem 7: 04/03/19 13:08 04/02/19 17:10 Labs: Abnormal Lab Results - Last 24 Hours (Table) 04/02/19 04/02/19 04/03/19 Range/Units 17:10 17:10 03:55 RDW 19.7 H 18.6 H (11.5-15.5) % Plt Count 127 L (150-450) k/uL Lymphocytes # 0.9 L (1.0-4.8) k/uL BUN 51 H (9-20) mg/dL Glucose 120 H (74-99) mg/dL POC Glucose (mg/dL) (75-99) mg/dL Calcium 10.4 H (8.4-10.2) mg/dL 04/03/19 04/03/19 Range/Units 07:13 10:54 RDW (11.5-15.5) % Plt Count (150-450) k/uL Lymphocytes # (1.0-4.8) k/uL BUN (9-20) mg/dL Glucose (74-99) mg/dL POC Glucose (mg/dL) 139 H 215 H (75-99) mg/dL Calcium (8.4-10.2) mg/dL Thrombosis Risk Factor Assmnt - Choose All That Apply Any of the Below Risk Factors Present?: Yes Each Factor Represents 1 point: Medical pt on bed rest, Obesity (BMI >25) Each Risk Factor Represents 3 Points: Age 75 years or older, History of DVT/PE Other congenital or acquired thrombophilia - If yes, enter type in comment: No Thrombosis Risk Factor Assessment Total Risk Factor Score: 8 Thrombosis Risk Factor Assessment Level: High Risk Assessment and Plan Assessment: 1. Rectal bleed - We will admit patient to general medical floor and monitor H&H closely; we will hold off anticoagulation therapy - Start patient on IV Protonix 40 mg daily; we will type crossmatch and transfuse packed RBCs if hemoglobin drops below 7 - Consult GI for further recommendations 2. Diabetes mellitus type 1 - Patient takes Levemir 55 units daily at bedtime along with 20 units of Humalog every before meals - We will hold off on scheduled dose of insulin while patient is nothing by mouth; we will monitor Accu-Cheks every before meals and at bedtime with insulin sliding scale and restart home medications once oral intake is established 3. Hypertension; stable on home dose of Coreg 6.25 mg daily and lisinopril 2.5 mg daily 4. Hyperlipidemia; takes Pravachol 20 mg by mouth daily at bedtime 5. COPD; not in exacerbation - Continue with home inhaler therapy with Spiriva 1 capsule daily and Ventolin inhaler 2 puffs 4 times a day when necessary; patient takes Symbicort 1604.5 MCG 2 puffs twice a day 6. DVT prophylaxis; SCDs only due to GI bleed CODE STATUS; full code Time with Patient: Greater than 30
[2019-04-04 17:21] LABS: Glucose,Whole Blood 227 mg/dL (75-99)
--- NOTE | 2019-04-04 19:42 | P.PN ---
Subjective Progress Note Date: 04/04/19 Principal diagnosis: Blood per rectum The patient is seen lying in bed. No further blood per rectum. No abdominal pain reported. Has tolerated diet. Objective - Vital Signs Vital signs: Vital Signs Temp 98.2 F 04/04/19 12:20 Pulse 84 04/04/19 16:10 Resp 19 04/04/19 12:20 BP 103/63 04/04/19 12:20 Pulse Ox 96 04/04/19 12:20 Intake & Output 04/04/19 04/04/19 04/05/19 06:59 18:59 06:59 Intake Total 1650 Balance 1650 Intake: Intake, IV Titration 640 Amount Sodium Chloride 0.9% 1, 640 000 ml @ 75 mls/hr IV . [id number] STA Rx#:[id number] Oral 1010 Other: Voiding Method Urinal Urinal Diaper Diaper Incontinent Incontinent # Voids 2 # Bowel Movements 1 - Exam On physical examination, patient appears comfortable in no apparent distress. HEAD: Normocephalic, atraumatic. EYES: No scleral icterus. No conjunctival injection. MOUTH: No lesions, tongue midline. NECK: Trachea midline, no gross abnormalities. CHEST: Clear to auscultation with no wheezing or rhonchi appreciated. ABDOMEN: Soft, obese. Bowel sounds are positive. No organomegaly. No guarding or rigidity. EXTREMITIES: No pedal edema. SKIN: No rashes, no jaundice. NEUROLOGIC: Alert and no focal deficits. - Labs CBC & Chem 7: 04/04/19 11:02 04/02/19 17:10 Labs: Abnormal Lab Results - Last 24 Hours (Table) 04/03/19 04/03/19 04/04/19 Range/Units 20:10 21:55 06:51 RBC 4.26 L (4.30-5.90) m/uL RDW 18.8 H (11.5-15.5) % Plt Count 145 L (150-450) k/uL POC Glucose (mg/dL) 221 H 126 H (75-99) mg/dL 04/04/19 04/04/19 04/04/19 Range/Units 11:02 11:44 17:20 RBC 4.24 L (4.30-5.90) m/uL RDW 18.5 H (11.5-15.5) % Plt Count (150-450) k/uL POC Glucose (mg/dL) 187 H 227 H (75-99) mg/dL Assessment and Plan (1) GI bleed Narrative/Plan: 83-year-old male with a history of colonoscopy 3 years ago presented with multiple episodes of painless bright red blood per rectum. The patient had been on Eliquis. Hemoglobin has continued to remain stable since hospitalization with findings of values of 14.2, 14.2, 14.5, 13.7 and again 13.7 on repeat laboratory draw. Current Visit: Yes Status: Acute Code(s): K92.2 - GASTROINTESTINAL HEMORRHAGE, UNSPECIFIED SNOMED Code(s): 32627994 Plan: Supportive care Diet advance to low fiber low residual today Continue to monitor stool output Continue to monitor hemoglobin and transfuse as needed Continue to hold Eliquis therapy No plans for endoscopic evaluation at this time, however if patient has further GI bleeding or fall in hemoglobin we'll reconsider at that time If hemoglobin remains stable and no further signs of bleeding would recommend restarting anticoagulation therapy tomorrow Thank you for allowing us to participate in the care of the patient we will
[2019-04-04 20:20] LABS: Glucose,Whole Blood 217 mg/dL (75-99)
[2019-04-04] MEDS: PRAVASTATIN SODIUM 20 MG TAB PO SCH (20:54)
[2019-04-04] MEDS: INSULIN DETEMIR (LEVEMIR) 100 UNIT/ML SYR SQ SCH (20:54)
--- NOTE | 2019-04-04 22:08 | PN ---
PROGRESS NOTE DATE OF SERVICE: 04/04/2019 This 83-year-old gentleman, admitted with an acute bleed, is being closely monitored at this time. The patient's noted multiple episodes of rectal bleeding. Gastroenterology evaluation is in progress at this time. The hemoglobin was found to be 13.7, which is rather stable. The patient was also taking multiple medications, including colchicine and Eliquis. The patient had a previous colonoscopy per Dr. Arango per Gastroenterology, which showed scattered sigmoid diverticulosis and internal hemorrhoids. The patient is being closely monitored. Past medical history reviewed. REVIEW OF SYSTEMS: CARDIOVASCULAR SYSTEM: No angina, palpitations. RESPIRATORY SYSTEM: As mentioned earlier. GI: No nausea, vomiting. : No dysuria or retention. NERVOUS SYSTEM: No numbness, weakness. CURRENT MEDICATIONS: Reviewed. They include: 1. Tylenol p.r.n. 2. Ventolin. 3. Zyloprim. 4. Vitamin C. 5. Symbicort. 6. Os-Aiden with vitamin D. 7. Coreg. 8. Prozac. 9. Lasix. 10.Neurontin. 11.NovoLog. 12.Levemir. 13.Atrovent. 14.Zestril. 15.Multivitamins. 16.Narcan. 17.Protonix. 18.Pravachol. Doses are reviewed. PHYSICAL EXAMINATION: Alert and oriented x3. Pulse 85, blood pressure 103/63, respiration 19, temperature 98.2, pulse ox 96% on room air. HEENT: Conjunctivae normal. Oral mucosa moist. NECK: No jugular venous distention. No carotid bruit. No lymph node enlargement. CARDIOVASCULAR SYSTEM: S1, S2 muffled. RESPIRATORY SYSTEM: Breath sounds diminished at the bases. A few scattered rhonchi. No crackles. ABDOMEN: Soft, non-tender. No mass palpable. Mildly distended. LEGS: No edema. No swelling. NERVOUS SYSTEM: No focal deficit. LABS: WBC 6.7, hemoglobin 13.7. Calcium is 10.4 and glucose 227. ASSESSMENT: 1. Acute lower gastrointestinal bleeding. 2. On Eliquis. 3. Diabetes mellitus, type 2. 4. Hypertension. 5. Hyperlipidemia. 6. Chronic obstructive pulmonary disease. 7. History of deep vein thrombosis. 8. History of degenerative joint disease. 9. History of sleep apnea. 10.History of cerebrovascular accident with left-sided weakness. 11.History of prostate cancer. 12.Obesity with body mass index of 38. 13.FULL CODE. RECOMMENDATIONS AND DISCUSSION: I recommend to continue current medications, continue with the monitoring, symptomatic treatment. Otherwise, follow closely with Gastroenterology. We will stop the Eliquis. Repeat labs. The patient is on a low-fiber diet. Further recommendations to follow. MMODL / IJN: [id number] /
[2019-04-05 07:12] LABS: Glucose,Whole Blood 204 mg/dL (75-99)
[2019-04-05] MEDS ORDERED: metFORMIN 500 MG TAB PO SCH (07:30)
[2019-04-05 07:37] LABS: Anisocytosis Slight; HCT 41.5 % (39.0-53.0); HGB 13.6 gm/dL (13.0-17.5); MCH 32.8 pg (25.0-35.0); MCHC 32.7 g/dL (31.0-37.0); MCV 100.1 fL (80.0-100.0); Macrocytosis Moderate; Mean Platelet Volume 9.3; Platelet Count 118 k/uL (150-450); RBC 4.15 m/uL (4.30-5.90); RDW 18.5 % (11.5-15.5); WBC 7.8 k/uL (3.8-10.6)
[2019-04-05 08:11] LABS: Potassium 4.7 mmol/L (3.5-5.1)
[2019-04-05 08:19] LABS: Eosinophils # (M) 0.23 k/uL (0-0.7); Lymphocytes # (M) 0.55 k/uL (1.0-4.8); Monocytes # (M) 0.78 k/uL (0-1.0); Neutrophils # (M) 6.24 k/uL (1.3-7.7); Neutrophils % (M) 80 %; Nucleated Red Blood Cells 0 /100 WBC (0-0); Total Cells Counted 100
[2019-04-05 08:20] LABS: Poikilocytosis (M) Present
[2019-04-05] MEDS: INSULIN ASPART (NovoLOG) 100 UNIT/ML VIAL SQ SCH ×2 (08:20→12:03)
[2019-04-05] MEDS: LISINOPRIL 2.5 MG TAB PO SCH (08:21)
[2019-04-05] MEDS: CARVEDILOL 6.25 MG TAB PO SCH (08:21)
[2019-04-05] MEDS: FUROSEMIDE 40 MG TAB PO SCH (08:21)
[2019-04-05] MEDS: FLUoxetine HCL 20 MG CAP PO SCH (08:21)
[2019-04-05] MEDS: ASCORBIC ACID 500 MG TAB PO SCH (08:21)
[2019-04-05] MEDS: CALCIUM CARB-VIT D 500MG-200UN 1 EACH TAB PO SCH (08:21)
[2019-04-05] MEDS: PANTOPRAZOLE 40 MG/10 ML VIAL IVP SCH (08:21)
[2019-04-05] MEDS: GABAPENTIN 300 MG CAP PO SCH (08:21)
[2019-04-05] MEDS: MULTIVITAMINS, THERA 1 EACH TAB PO SCH (08:21)
[2019-04-05] MEDS: ALLOPURINOL 300 MG TAB PO SCH (08:21)
--- NOTE | 2019-04-05 09:53 | P.PN ---
Subjective Progress Note Date: 04/05/19 Principal diagnosis: GI bleed The patient is seen lying in bed. Nursing reports vomiting with this morning with smears of old colored dark blood. No abdominal pain reported. Has tolerated diet. Hemoglobin 13.6. Objective - Vital Signs Vital signs: Vital Signs Temp 97.7 F 04/05/19 05:00 Pulse 85 04/05/19 05:00 Resp 20 04/05/19 05:00 BP 116/62 04/05/19 05:00 Pulse Ox 92 L 04/05/19 05:00 Intake & Output 04/04/19 04/05/19 04/05/19 18:59 06:59 18:59 Intake Total 830 Balance 830 Intake: Oral 830 Other: Voiding Method Urinal Urinal Diaper Diaper Incontinent Incontinent # Voids 2 - Exam General appearance: The patient is alert, oriented, in no acute distress. HET: Head is normocephalic and atraumatic. Pupils are equal and reactive. Oropharynx is clear without lesions. Neck: Supple without lymphadenopathy. Trachea midline. Heart: S1 S2. Regular rate and rhythm. Lungs: No crackles or wheezes are heard. Abdomen: Soft, nontender, nondistended with bowel sounds. No peritoneal signs. No palpable organomegaly or masses. Extremities: Normal skin color and turgor. No cyanosis, rash, ulceration, clubbing, or edema. Radial and pedal pulses are 2/4 bilaterally. Neurological: No focal deficits. Strength and sensation are grossly intact. - Labs CBC & Chem 7: 04/05/19 06:58 04/05/19 06:58 Labs: Abnormal Lab Results - Last 24 Hours (Table) 04/04/19 04/04/19 04/04/19 Range/Units 11:02 11:44 17:20 RBC 4.24 L (4.30-5.90) m/uL MCV (80.0-100.0) fL RDW 18.5 H (11.5-15.5) % Plt Count (150-450) k/uL Lymphocytes # (Manual) (1.0-4.8) k/uL Sodium (137-145) mmol/L Carbon Dioxide (22-30) mmol/L BUN (9-20) mg/dL Glucose (74-99) mg/dL POC Glucose (mg/dL) 187 H 227 H (75-99) mg/dL 04/04/19 04/05/19 04/05/19 Range/Units 20:18 06:58 06:58 RBC 4.15 L (4.30-5.90) m/uL MCV 100.1 H (80.0-100.0) fL RDW 18.5 H (11.5-15.5) % Plt Count 118 L (150-450) k/uL Lymphocytes # (Manual) 0.55 L (1.0-4.8) k/uL Sodium 134 L (137-145) mmol/L Carbon Dioxide 19 L (22-30) mmol/L BUN 56 H (9-20) mg/dL Glucose 183 H (74-99) mg/dL POC Glucose (mg/dL) 217 H (75-99) mg/dL 04/05/19 Range/Units 07:11 RBC (4.30-5.90) m/uL MCV (80.0-100.0) fL RDW (11.5-15.5) % Plt Count (150-450) k/uL Lymphocytes # (Manual) (1.0-4.8) k/uL Sodium (137-145) mmol/L Carbon Dioxide (22-30) mmol/L BUN (9-20) mg/dL Glucose (74-99) mg/dL POC Glucose (mg/dL) 204 H (75-99) mg/dL Assessment and Plan (1) GI bleed Narrative/Plan: 83-year-old male with a history of colonoscopy 3 years ago presented with multiple episodes of painless bright red blood per rectum. The patient had been on Eliquis. Hemoglobin has continued to remain stable. Current Visit: Yes Status: Acute Code(s): K92.2 - GASTROINTESTINAL HEMORRHAGE, UNSPECIFIED SNOMED Code(s): 91819379 Plan: 1. Discharge per medicine. Low residue diet. Supportive measures. May restart anticoagulation. Assessment and plan a care discussed with Dr. Bansal
[2019-04-05] MEDS: IPRATROPIUM 0.5 MG/2.5 ML NEBU INHALATION SCH ×2 (10:30→10:38)
[2019-04-05 11:52] LABS: Glucose,Whole Blood 237 mg/dL (75-99)
[2019-04-05 13:53] VITALS: BP 103/61; PULSE 89; RESP 18; TEMP 97.5
--- NOTE | 2019-04-06 08:45 | DS ---
DISCHARGE SUMMARY DATE OF SERVICE: 04/05/2019 FINAL DIAGNOSES: 1. Acute lower gastrointestinal bleeding possibly from internal hemorrhoids. 2. On Eliquis. 3. Diabetes mellitus type 2. 4. Hypertension. 5. Hyperlipidemia. 6. Chronic obstructive pulmonary disease. 7. History of deep vein thrombosis. 8. History of degenerative joint disease. 9. History of sleep apnea. 10.History of cerebrovascular accident with left-sided weakness. 11.History of prostate cancer. 12.Obesity with body mass index of 38. 13.FULL CODE. DISCHARGE DISPOSITION: The patient will be discharged in stable condition with guarded prognosis. HISTORY OF PRESENT ILLNESS: This 83-year-old gentleman with a past medical history of multiple medical problems was admitted with acute lower GI bleeding. The patient is on Eliquis, which was stopped and bleeding was controlled. The patient was seen by Gastroenterology Dr. Arango and Dr. Bansal saw the patient. Recommended outpatient follow up. The hemoglobin was stable at 13.6. On exam, vitals are stable. CARDIOVASCULAR: S1, S2 muffled. ABDOMEN: Soft. NERVOUS SYSTEM: No focal deficits. Patient will be discharged in stable condition with guarded prognosis with following advice. 1. Diet is cardiac. 2. Activity limited until followup. 3. Follow up with Dr. Escamilla at [facility] in 2 to 3 days. 4. Follow up with Dr. Bansal as recommended. Medications are as follows: 1. Apple cider vinegar as before. 2. Atrovent q.i.d. p.r.n. 3. Calcium with vitamin D3 one p.o. daily. 4. Coenzyme Q 100 mg p.o. daily. 5. Colchicine 0.6 daily p.r.n. 6. Colchicine 0.6 q.1 p.r.n. for acute gout flare-up. 7. Coreg 6.25 mg p.o. daily. 8. Fish oil 1 p.o. q.h.s. 9. Humalog 20 units subcutaneous a.c. t.i.d. 10.Lasix 20 mg p.o. daily. 11.Levemir 55 units subcu q.h.s. 12.Multivitamins 1 p.o. daily. 13.Metformin 1000 mg p.o. daily. 14.Naturna 1 tablet p.o. q.h.s. 15.Neurontin 300 mg p.o. b.i.d. 16.Pravachol 20 mg q.h.s. 17.Prozac 40 mg. 18.Spiriva 1 puff daily. 19.Symbicort 160/4.5 two puffs b.i.d. p.r.n. 20.Ventolin 2.5 q.i.d. p.r.n. 21.Vitamin C 1000 mg p.o. daily. 22.Zestril 2.5 mg p.o. daily. 23.Zyloprim 300 mg p.o. daily. 24.Ecotrin 81 mg p.o. daily. 25.Eliquis 5 mg p.o. b.i.d. 26.Protonix 40 mg daily. 27.Tylenol 650 q.6 p.r.n. Once again, the patient will be discharged in stable condition with guarded prognosis. MMODL / IJN: [id number] /
== END 2019-04-05 15:44 | disposition home or self-care (01) ==
LOC: EC 16:29 → 3NMEDONC 18:49
PROVIDERS: ADMIT Internal Medicine; ATTEND Internal Medicine
DX: K62.5 Hemorrhage of anus and rectum (principal); I12.9 Hypertensive chronic kidney disease with stage 1 through stage 4 chronic kidney disease, or unspecified chronic kidney disease; N18.9 Chronic kidney disease, unspecified; E11.22 Type 2 diabetes mellitus with diabetic chronic kidney disease; J44.9 Chronic obstructive pulmonary disease, unspecified; K64.8 Other hemorrhoids; F03.90 Unspecified dementia, unspecified severity, without behavioral disturbance, psychotic disturbance, mood disturbance, and anxiety; K57.30 Diverticulosis of large intestine without perforation or abscess without bleeding; I26.99 Other pulmonary embolism without acute cor pulmonale; K21.9 Gastro-esophageal reflux disease without esophagitis; I69.354 Hemiplegia and hemiparesis following cerebral infarction affecting left non-dominant side; E78.5 Hyperlipidemia, unspecified; M19.90 Unspecified osteoarthritis, unspecified site; G47.30 Sleep apnea, unspecified; Z99.89 Dependence on other enabling machines and devices; M10.9 Gout, unspecified; E66.9 Obesity, unspecified; Z68.38 Body mass index [BMI] 38.0-38.9, adult; M54.9 Dorsalgia, unspecified; G89.29 Other chronic pain; R11.10 Vomiting, unspecified; Z79.51 Long term (current) use of inhaled steroids; Z79.4 Long term (current) use of insulin; Z79.82 Long term (current) use of aspirin; Z79.01 Long term (current) use of anticoagulants; Z79.899 Other long term (current) drug therapy; Z87.891 Personal history of nicotine dependence; Z86.718 Personal history of other venous thrombosis and embolism; Z92.21 Personal history of antineoplastic chemotherapy; Z85.72 Personal history of non-Hodgkin lymphomas; Z87.11 Personal history of peptic ulcer disease; Z87.2 Personal history of diseases of the skin and subcutaneous tissue; Z87.01 Personal history of pneumonia (recurrent); Z85.46 Personal history of malignant neoplasm of prostate; Z99.3 Dependence on wheelchair; Z82.49 Family history of ischemic heart disease and other diseases of the circulatory system; Z83.3 Family history of diabetes mellitus
CPT/HCPCS: 96376 ×3; 96361 ×3; 96374; 99285; 36415; 94640 ×5; 93005; 86900; 86901; 80053; 80048; 84484; 85025 ×2; 85027 ×2; 85610; 85730; 86850; 82272; G0378 ×4; C9113 ×4